=== PATIENT | female | born 1990 | race Caucasian/White ===

== ENCOUNTER 2018-07-01 14:12 | Outpatient (REF) | payer MEDICAID, SELFPAY ==
[2018-07-04 13:37] LABS: Chlamydia Result Negative; GC Result Negative
== END 2018-07-01 14:32 ==
LOC: NCHCN 14:12
PROVIDERS: PCP Nurse Practitioner Family; Visit Provider Nurse Practitioner Family
DX: R10.2 Pelvic and perineal pain (principal); Z11.3 Encounter for screening for infections with a predominantly sexual mode of transmission
CPT/HCPCS: 87491; 87591

== ENCOUNTER 2019-03-05 15:23 | Outpatient (REF) | payer BC, SELFPAY ==
[2019-03-05 22:00] LABS: Abs Immature Grans 0.01 k/cumm (0.0-0.09); Absolute Basophil Count 0.03 k/cumm (0.0-0.2); Absolute Eosinophil Count 0.07 k/cumm (0.0-0.7); Absolute Monocyte Count 0.38 k/cumm (0.11-0.7); Absolute Neutrophil Count 3.69 k/cumm (1.2-6.7); Basophils % 0.5; Eosinophils % 1.2; HCT 36.5 % (36.0-46.0); HGB 11.9 g/dL (12.0-15.5); Immature Grans % 0.2; Lymphocytes % 26.4; Mean Corp. HGB Concentration 32.6 g/dL (32.0-36.0); Mean Corpuscular Hemoglobin 27.5 pg (27.0-33.0); Mean Corpuscular Volume 84.5 fL (80-95); Mean Platelet Volume 11.3 fL (8.0-11.0); Monocytes % 6.7; Platelet Count 299 x1000/uL (130-400); RBC 4.32 m/cumm (4.00-5.20); RBC Distribution Width 14.3 % (11.7-14.6); White Blood Cell Count 5.68 k/cumm (4.4-10.8)
[2019-03-05 22:12] LABS: ALT 20 U/L (14-59); AST 14 U/L (15-37); Albumin 3.9 g/dL (3.4-5.0); Alkaline Phosphatase 54 U/L (46-116); BUN 9 mg/dL (7-18); Bilirubin, Total 0.2 mg/dL (0.2-1.0); CREATININE 0.83 mg/dL (0.55-1.02); Calcium 8.9 mg/dL (8.5-10.1); Chloride 104 mmol/L (98-107); Glucose 116 mg/dL (70-100); Potassium 3.8 mmol/L (3.5-5.1); Sodium 141 mmol/L (136-145); Total Protein 7.5 g/dL (6.4-8.2)
[2019-03-06 05:20] LABS: Vitamin D 25 Total 25.2 ng/ml (30-100)
== END 2019-03-05 15:43 ==
LOC: NCHCN 15:23
PROVIDERS: PCP Nurse Practitioner Family; Visit Provider Family Medicine
DX: R59.9 Enlarged lymph nodes, unspecified (principal); R53.83 Other fatigue
CPT/HCPCS: 80053; 82306; 85025

== ENCOUNTER 2020-04-29 16:13 | Outpatient (REF) | payer BC, SELFPAY ==
[2020-05-02 13:18] LABS: SARS-CoV-2 RNA Not Detected (NotDetected); SARS-CoV-2 RNA Source Nasopharynx
== END 2020-04-29 16:33 ==
LOC: NCHCN 16:13
PROVIDERS: PCP Nurse Practitioner Family; Visit Provider Internal Medicine
DX: J06.9 Acute upper respiratory infection, unspecified (principal)
CPT/HCPCS: U0003

== ENCOUNTER 2020-12-17 08:16 | Outpatient (REF) | payer BC, SELFPAY ==
--- NOTE | 2020-12-17 15:20 | PAPFT_PTH ---
PATIENT: Brittani Bradley LOC: [facility]#:[id number] AGE/SX: 30/F ROOM: RE12/17/[address]: Yocasta Cronin : 1990 BED: DIS: 12/17/2020 SPEC #: [id number] RECD: 12/18/20 11:40 STATUS: IGGY MOLINA #: [id number] MESHA: 12/17/20 15:[address]: Yocasta Cronin DEPT: [facility] Cytology RECD BY: Ivonne Lerma ENTERED: 12/18/20 11:41 SP TYPE: PAPFT OTHR DR: Elaine Hodgson Tissues: 1 - CX/ENDOCX FOR PAP SMEARS Procedures: PAP THIN PREP/UVM Screening Comments: [id number]
== END 2020-12-17 08:17 | disposition home or self-care (01) ==
LOC: NCHCN 08:16
PROVIDERS: PCP Nurse Practitioner Family; Visit Provider Internal Medicine
DX: Z00.00 Encounter for general adult medical examination without abnormal findings (principal); Z12.4 Encounter for screening for malignant neoplasm of cervix
CPT/HCPCS: 88142

== ENCOUNTER 2022-11-24 15:20 | Outpatient (REF) | payer BC, SELFPAY ==
[2022-11-27 10:16] LABS: Lyme Ab w Rflx to Lyme Confirm Negative (Negative)
[2022-11-28 16:50] LABS: Anaplasma phagocytophilum Negative (Negative); B. miyamotoi PCR Negative (Negative); Babesia divergens/MO-1 Negative (Negative); Babesia duncani Negative (Negative); Babesia microti Negative (Negative); Ehrlichia chaffeensis Negative (Negative); Ehrlichia ewingii/canis Negative (Negative); Ehrlichia muris eauclairensis Negative (Negative)
== END 2022-11-24 15:21 | disposition home or self-care (01) ==
LOC: NCHCN 15:20
PROVIDERS: PCP Nurse Practitioner Family; Visit Provider Registered Nurse
DX: M25.59 Pain in other specified joint (principal); W57.XXXA Bitten or stung by nonvenomous insect and other nonvenomous arthropods, initial encounter; T14.8XXA Other injury of unspecified body region, initial encounter
CPT/HCPCS: 87798; 86618

== ENCOUNTER 2023-10-12 15:33 | Outpatient (REF) | payer BC, SELFPAY ==
--- NOTE | 2023-10-12 14:45 | PAPFT_PTH ---
PATIENT: Brittani Bradley LOC: [facility]#:[id number] AGE/SX: 33/F ROOM: RE10/12/[address]: Yocasta Cronin : 1990 BED: DIS: 10/12/2023 SPEC #: [id number] RECD: 10/15/23 13:08 STATUS: IGGY MOLINA #: [id number] MESHA: 10/12/23 14:[address]: Yocasta Cronin DEPT: [facility] Cytology RECD BY: Hilda Casas ENTERED: 10/15/23 13:09 SP TYPE: PAPFT OTHR DR: Elaine Hodgson Tissues: 1 - CX/ENDOCX FOR PAP SMEARS Procedures: PAP THIN PREP/UVM Screening HPV DNA PROBE Comments: [id number] (CHLAMYDIA/GC)
[2023-10-16 16:27] LABS: Chlamydia Result Negative (Negative); GC Result Negative (Negative)
== END 2023-10-12 15:34 | disposition home or self-care (01) ==
LOC: NCHCN 15:33
PROVIDERS: PCP Nurse Practitioner Family; Visit Provider Internal Medicine
DX: Z00.00 Encounter for general adult medical examination without abnormal findings (principal); Z12.4 Encounter for screening for malignant neoplasm of cervix
CPT/HCPCS: 87491; 87591; 88142; 87624

== ENCOUNTER 2024-04-04 12:56 | Outpatient (REF) | payer BC, SELFPAY ==
--- OUTSIDE RECORDS SUMMARY | 2024-04-04 12:58 | XMS_ITS | Encounter Summary ---
Author Organization [facility] Address [address] [place] [address] Care Team Providers Care Hydraulic Hammer Operator Name Role Phone Yocasta Cronin Primary Care Provider [phone] Encounter Details Date Type Department Care Team (Late st Contact Info) Description 07/04/2022 Lab Requisition [facility] Pathology & Laboratory Medicine - [address] [address] [address] Ferraro MD [address] [place] [address] [address] [place] [id number] Neoplasm of uncertain behavior of skin Social History Tobacco Use Types Packs/Day Years Used Date Smoking Tobacco: Never Smokeless Tobacco: Never Alcohol Use Standard Drinks/Week Comments Never 0 (1 standard drink = 0.6 oz pur e alcohol) AUDIT-C Answer Date Recorded Frequency of Alcohol Consumption Never 07/19/2019 Average Number of Drinks Not on file 020 Frequency of Binge Drinking Not on file 01/2020 PHQ-2 Answer Date Recorded PHQ-2 Score 0 01/11/2020 Interpersonal Safety Answer Date Record ed Physically Hurt Never 01/11/2020 Verbally Threaten Not on file 01/11/2020 Sex and Gender Information Value Date Recorded Sex Assigned at Not on file Gender Identity Female 07/19/2019 21:26 EST Sexual Orientation Not on file documented as of this encounter Plan of Treatment Not on file documented as of this encounter Procedures Procedure Name Priority Date/Time Associated Diagnosis Comments SURGICAL PATHOLOGY Today 07/04/2022 15 :43 EST Neoplasm of uncertain behavior of skin documented in this encounter Results * SURGICAL PATHOLOGY (07/04/2022 15:43 EST) Amendment Comment The purpose of this amendment comment is to report the results of the outside consultation by Dr. Stephon Goodrich at [facility]. Dr. 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 He specifically notes: I noted the concerns in your cover letter. While there are some junctional nests lateral to the dermal component, one can draw a line under the peripheral most junctional nest across the base of the dermal component to the last junctional nest on the other side of this relatively symmetrical lesion. While some mitotic figures are present in dermal melanocytes, those cells are in the superficial dermis. In this context, I believe that this lesion should be classified as a Spitz's nevus and not as an atypical Spitz tumor. The neoplasms extends to within 1 mm of the peripheral edges of the specimen. I do not believe that additional excision is needed. The diagnosis is amended as below. These results were given to Dr. Ferraro. 07/27/2022 10:29 [facility] Note to Patient The following pathology results have been interpreted by your pathologist and may be available to you before your health provider has had the opportunity to review them. Please allow time for your provider to receive these results and explore management options, if applicable. 07/27/2022 10:29 [facility] Final Diagnosis A. SKIN OF PRETIBIAL REGION, RIGHT DISTAL, PUNCH BIOPSY: - COMPOUND SPITZ'S NEVUS. See comment. - Lesion does not extend to biopsy edges in the plane of sections examined. - Lesion measures approximately 0.4 mm to the biopsy edge. - Lesion measures approximately 4.0 mm to the biopsy base. 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 The proliferation has concerning histologic features including the cellularity, cytologic atypia, significant architectural disorder, lateral extension with scattered upward migration, and rare dermal mitoses. However, other features support the benignity including the relatively discrete nature, general maturation of the dermal component, diffuse p16 positivity and lack of a well-developed in-situ component. Given the atypical features, the case will be sent to Dr.Philip Goodrich at [facility] and an addendum report will be issued upon receipt of those findings. These results were given to [facility]. 07/27/2022 10:29 [facility] Attestation By the signature below, the attending physician certifies that they have 1) personally conducted a gross and/or microscopic examination of the described specimen(s), and/or personally interpreted the results of laboratory testing of the described specimen(s), and 2) personally rendered or confirmed the above diagnosis. 07/27/2022 10:29 [facility] Amendment electronically signed by Patsy Vo MD on 07/27/2022 at 1029 at 1320 Microscopic Description Sections consist of a punch biopsy of a papule. There is a relatively discrete, somewhat asymetric compound melanocytic proliferation. The junctional component is arranged as nests as well as individual cells. Nests show significant variation in size, shape, and spacing with some nests oriented perpendicular to the underlying dermis and some oriented parallel to the dermis. There is cleft inflammation around some of the nests. There is extensive epidermal consumption and bridging. Individual melanocytes are unevenly spaced and crowded along the dermal-epidermal junction with scattered cells extending slightly above the basal zone within the central aspect of the proliferation but also extending laterally. The individual melanocytes are spindled to epithelioid in morphology with fine chromatin, small prominent nucleoli, and amphophilic cytoplasm, some of which is pigmented. Kamino body formation is noted. Similar-appearing melanocytes are present within the dermis and generally mature with descent, although in scattered foci some larger nests are noted adjacent to smaller nests at the deep aspect of the dermal component. Rare dermal mitoses are noted. Scattered intraepidermal mitoses are present. There is moderately dense lymphomononuclear inflammation.SOX-10 ALK PHOS (SP267, Cell Checo) highlights scattered upper extension, including at the periphery, but does not show well-developed confluent growth and upper migration.P16 (E6H4TM, Peridot) shows strong diffuse positivity. Additional sections have been reviewed. NOTE: One or more of the reagents used in immunoperoxidase testing in this case may not have been cleared or approved by the U.S. Food and Drug Administration (FDA). The FDA has determined that such clearance or approval is not necessary. These tests are used for clinical purposes. They should not be regarded as investigational or for research. These reagents' performance characteristics have been determined by [facility] and/or by the referring laboratory. The positive and negative controls worked appropriately. If immunoperoxidase staining has been performed on alcohol fixed cytology specimens, which has not been fully validated, the assays should be interpreted with caution and correlated with clinical data. This laboratory is certified under the Clinical Laboratory Improvement Amendments of 1988 (CLIA-88) as qualified to perform high complexity clinical laboratory testing.? 07/27/2022 10:29 [facility] Clinical History Dome shaped red papule; DDx: Spitz nevus vs. dysplastic nevus; clinical diagnosis code: D48.5 07/27/2022 10:29 [facility] Gross Description A. Received in formalin labelled with proper patient identification (initials K, S) and right distal pretibial region is a mcclain-pink skin punch biopsy measuring 0.5 cm in diameter and excised to a depth of 0.3 cm. Submitted intact in A1. DREAD ACHARYA(ASCP) 07/04/2022 20:07 07/27/2022 10:29 [facility] Performing Lab [facility] 07/27/2022 10:29 [facility] Scanned Images 07/27/2022 10:29 [facility] Tissue TISSUE SPECIMEN FROM SKIN / Unknown 07/04/2022 15:43 EST 07/04/2022 18:[address] Ferraro MD PATHOLOGY ORDERABLES [facility] [address] [place] [address] documented in this encounter Visit Diagnoses Diagnosis Neoplasm of uncertain behavior of skin documented in this encounter Care Teams Hydraulic Hammer Operator Relationship Specialty Start Date End Date Yocasta Cronin [address] [place] [id number] PCP - General Internal Medicine - Primary Care 12/22/19 documented as of this encounter
--- OUTSIDE RECORDS SUMMARY | 2024-04-04 12:58 | XMS_ITS | Encounter Summary ---
Author Organization [facility] Address [address] [place] [address] Care Team Providers Care Card Punching Machine Operator Name Role Phone Yocasta Cronin Primary Care Provider [phone] Encounter Details Date Type Department Care Team (Late st Contact Info) Description 12/23/2019 Lab Requisition [facility] Pathology & Laboratory Medicine - [address] [address] Outr Resulting Lab, Provider Social History Tobacco Use Types Packs/Day Years Used Date Smoking Tobacco: Never Smokeless Tobacco: Never Alcohol Use Standard Drinks/Week Comments Never 0 (1 standard drink = 0.6 oz pur e alcohol) AUDIT-C Answer Date Recorded Frequency of Alcohol Consumption Never 07/19/2019 Average Number of Drinks Not on file 020 Frequency of Binge Drinking Not on file 01/2020 Sex and Gender Information Value Date Recorded Sex Assigned at Not on file Gender Identity Female 07/19/2019 21:26 EST Sexual Orientation Not on file documented as of this encounter Plan of Treatment Not on file documented as of this encounter Procedures Procedure Name Priority Date/Time Associated Diagnosis Comments DO NOT ORDER STANDALONE - BROAD COVID TEST Today 12/23/2019 10:20 EDT COVID-19 TESTING Routine 12/23/2019 10:2 0 EDT documented in this encounter Results * DO NOT ORDER STANDALONE - BROAD COVID TEST (12/23/2019 10:20 EDT) COVID-19 rt-PCR Result NEGATIVE Negative 12/25/2019 20:36 EDT [facility] Comment: 2019-novel Coronavirus (2019-nCoV) not detected by the qRT-PCR assay. Consider testing for other respiratory viruses or re-collecting for 2019-nCoV testing. Note: Optimum timing for peak viral levels during infections caused by 2019-nCoV have not been determined. Collection of multiple specimens from the same patient may be necessary to detect the virus. Limitations Positive results are indicative of active infection with SARS-CoV-2 but do not rule out bacterial infection or co-infection with other viruses. The agent detected may not be the definite cause of disease. In addition, detection of viral RNA may not indicate the presence of infectious virus or that SARS-CoV-2 is the causative agent for clinical symptoms. Negative results do not preclude SARS-CoV-2 infection and should not be used as the sole basis for patient management decisions. Negative results must be combined with clinical observations, patient history, and epidemiological information. False negative results may also occur if amplification inhibitors are present in the specimen or if inadequate numbers of organisms are present in the specimen. Optimum specimen types and timing for peak viral levels during infections caused by SARS-CoV-2 have not been fully determined. Collection of multiple specimens (types and time points) from the same patient may be necessary to detect the virus. The test was validated for use with upper respiratory specimens obtained via nasopharyngeal or oropharyngeal swabs in VTM, UTM, M4, M5, M6, saline, and MTM media. The performance of this test has not been established for other specimens. Specimens collected using other FDA recommended Specimen Collection Materials listed in the FDA COVID-19 Diagnostic Technologies communication (September 04, 2019) are processed with the caveat that they were not all validated for use with this test and the result must be interpreted in this context. Furthermore, a false negative results may occur if a specimen is improperly collected, transported or handled. If the virus mutates in the RT-PCR target region, SARS-CoV-2 may not be detected or may be detected less predictably. Inhibitors or other types of interference may produce a false negative result. An interference study evaluating the effect of common cold medications was not performed. This test is not FDA-cleared but its performance characteristics were established by our CLIA-certified, CAP-accredited, high complexity laboratory in accordance with CLIA regulations, [employer] [place] [employer] (CAP) guidelines (Aug 28, 2019), and FDA guidance (Aug 09, 2019). This test is only for use under the Food and Drug Administration's Emergency Use Authorization. Swab ENTIRE NASOPHARYNX / Unknown 12/23/2019 10:20 EDT 12/23/2019 22:00 EDT Provider Outr Resulting Lab MICROBIOLOGY - GENERAL ORDERABLES [facility] [place], [place] * COVID-19 TESTING (12/23/2019 10:20 EDT) COVID-19 rt-PCR Result NEGATIVE Negative 12/26/2019 0:02 EDT [facility] Comment: 2019-novel Coronavirus (2019-nCoV) not detected by the qRT-PCR assay. Consider testing for other respiratory viruses or re-collecting for 2019-nCoV testing. Note: Optimum timing for peak viral levels during infections caused by 2019-nCoV have not been determined. Collection of multiple specimens from the same patient may be necessary to detect the virus. Limitations Positive results are indicative of active infection with SARS-CoV-2 but do not rule out bacterial infection or co-infection with other viruses. The agent detected may not be the definite cause of disease. In addition, detection of viral RNA may not indicate the presence of infectious virus or that SARS-CoV-2 is the causative agent for clinical symptoms. Negative results do not preclude SARS-CoV-2 infection and should not be used as the sole basis for patient management decisions. Negative results must be combined with clinical observations, patient history, and epidemiological information. False negative results may also occur if amplification inhibitors are present in the specimen or if inadequate numbers of organisms are present in the specimen. Optimum specimen types and timing for peak viral levels during infections caused by SARS-CoV-2 have not been fully determined. Collection of multiple specimens (types and time points) from the same patient may be necessary to detect the virus. The test was validated for use with upper respiratory specimens obtained via nasopharyngeal or oropharyngeal swabs in VTM, UTM, M4, M5, M6, saline, and MTM media. The performance of this test has not been established for other specimens. Specimens collected using other FDA recommended Specimen Collection Materials listed in the FDA COVID-19 [employer] communication (September 04, 2019) are processed with the caveat that they were not all validated for use with this test and the result must be interpreted in this context. Furthermore, a false negative results may occur if a specimen is improperly collected, transported or handled. If the virus mutates in the RT-PCR target region, SARS-CoV-2 may not be detected or may be detected less predictably. Inhibitors or other types of interference may produce a false negative result. An interference study evaluating the effect of common cold medications was not performed. This test is not FDA-cleared but its performance characteristics were established by our CLIA-certified, CAP-accredited, high complexity laboratory in accordance with CLIA regulations, [employer] [place] [employer] (CAP) guidelines (Aug 28, 2019), and FDA guidance (Aug 09, 2019). This test is only for use under the Food and Drug Administration's Emergency Use Authorization. Performing Lab [facility] [employer] [facility] [place] 12/26/2019 0:02 EDT [facility] Swab 12/23/2019 10:2 0 EDT 12/23/2019 22:00 EDT Provider Outr Resulting Lab MICROBIOLOGY - GENERAL ORDERABLES [facility] [address] [place] [address] [facility] [place], [place] documented in this encounter Visit Diagnoses Not on filedocumented in this encounter Additional Health Concerns Infection Onset Date Last Indicated Resolved Time R/O COVID-19 12/22/2019 12/23/2019 12/28/2019 22:1 7 EDT documented as of this encounter Care Teams Card Punching Machine Operator Relationship Specialty Start Date End Date Yocasta Cronin [address] [place] [address] PCP - General Internal Medicine - Primary Care 12/22/19 documented as of this encounter
--- OUTSIDE RECORDS SUMMARY | 2024-04-04 12:58 | XMS_ITS | Clinical Summary ---
Author Organization [facility] Address [address] [place] [address] Care Team Providers Care Instrument Lens Grinder Name Role Phone Yocasta Cronin Primary Care Provider [phone] Allergies Active Allergy Reactions Criticality Noted Date Comments Penicillins Rash 04/16/2013 Unable To Assess 04/29/2014 Pollens Medications No known medications Active Problems No known active problems Encounters Date Type Department Care Team Description 04/01/2024 Telephone [facility] Family Medicine [address] [address] [facility], Appointment Related from Last 3 Months Medical History Medical History Date Comments Asthma Back pain Leg pain Joint pain Knee instability Anemia Anxiety Social History Tobacco Use Types Packs/Day Years [...] 21:26 EST Sexual Orientation Not on file Obstetrics History Last Filed Vital Signs Vital Sign Reading Time Taken Comments Blood Pressure 126/83 07/19/2019 2118 EST Pulse 71 12/23/2019 1135 EDT Temperature 36.9 ??C (98.4 ??F) 07/19/2019 2118 EST Respiratory Rate 16 07/19/20192117 EST Oxygen Saturation 100% 12/23/2019 1135 EDT Inhaled Oxygen Concentration - - Weight 63.5 kg (140 lb) 07/19/20192117 EST Height 175.3 cm (5' 9) 09/03/2015 1331 EDT Body Mass Index 20.67 09/03/2015 1331 EDT Plan of Treatment Health Maintenance Due Date Last Done Comments Hepatitis C Screen 1990 Hepatitis B Vaccine (1 of 3 - 19+ 3-dose series) 01/17 COVID-19 Vaccine (2023- season) 2024 Care Teams Instrument Lens Grinder Relationship Specialty Start Date End Date Yocasta Cronin [address] [place] [address] PCP - General Internal Medicine - Primary Care 12/22/19
--- OUTSIDE RECORDS SUMMARY | 2024-04-04 12:58 | XMS_ITS | Encounter Summary ---
Author Organization [facility] Address [address] [place] [address] Care Team Providers Care Cloth Worker Name Role Phone Yocasta Cronin Primary Care Provider [phone] Encounter Details Date Type Department Care Team (Late st Contact Info) Description 10/17/2023 Lab Requisition [facility] Pathology & Laboratory Medicine - [address] [address] Yocasta Cronin [address] [place] [address] Encounter for screening for malignant neoplasm of cervix; Encounter for general adult medical examination without abnormal findings Social History Tobacco Use Types Packs/Day Years [...] Procedure Name Priority Date/Time Associated Diagnosis Comments PAP TEST Today 10/12/2023 14:45 EDT Encounter for screening for malignant neoplasm of cervix Encounter for general adult medical examination without abnormal findings HPV DNA DETECTION WITH GENOTYPING, PCR Today 10/12/2023 14:45 EDT Encounter for screening for malignant neoplasm of cervix Encounter for general adult medical examination without abnormal findings documented in this encounter Results * HUMAN PAPILLOMAVIRUS (HPV) DETECTION-HIGH RISK TYPES (10/12/2023 14:45 EDT) HPV other High Risk types, PCR Negative Negative 10/23/2023 18:25 EDT [facility] Comment:No E6 or E7 mRNA is detected from HPV types 16,18,31,33,35,39,45,51,52,56,58,59,66, and 68 by plastics seasoner operator mediated amplification. Pap Test CERVIX UTERI STRUCTURE / Unknown 10/12/2023 14:45 EDT 10/23/2023 9:34 EDT Yocasta Cronin MICROBIOLOGY - [facility] AL ORDERABLES [facility] [address] [place] [address] * PAP TEST (10/12/2023 14:45 EDT) Specimens A. Cervix and/or Endocervix , ThinPrep Imaging System with Manual Evaluation 10/23/2023 18:25 T [facility] Specimen Adequacy Satisfactory for Evaluation - transformation zone component present 10/23/2023 18:25 EDT [facility] General Categorization Negative for intraepithelial lesion or malignancy 10/23/2023 18:25 [facility] Attestation . 10/23/2023 18:25 [facility] at 1825 Clinical History SEE BELOW 10/23/19 18:25 T [facility] HPV The result for the Human Papillomavirus (HPV) Detection-High Risk Types is Negative. No E6 or E7 mRNA is detected from HPV types 16,18,31,33,35,39 ,45,51,52,56,58,5 9,66, and 68 by plastics seasoner operator mediated amplification.Jasmin ting was performed on specimen [id number] and was resulted on 10/23/2023 1825 EDT by MARY, LAB INSTRUMENT RESULTS IN 10/23/2023 18:25 EDT [facility] Performing Lab [facility] 10/23/2023 18:25 EDT [facility] Scanned Images 10/23/2023 18:25 EDT [facility] Pap Test CERVIX UTERI STRUCTURE / Unknown 10/12/2023 14:45 EDT 10/17/2023 10:13 EDT Yocasta Cronin PATHOLOGY ORDERABLES Performing Organization Address City/State/[facility] Co de Phone Number [facility] [address] [place], [place] [address] documented in this encounter Visit Diagnoses Diagnosis Encounter for screening for malignant neoplasm of cervix Screening for malignant neoplasm of the cervix Encounter for general adult medical examination without abnormal findings Unspecified general medical examination documented in this encounter Care Teams Cloth Worker Relationship Specialty Start Date End Date Yocasta Cronin [address] [place] [address] PCP - General Internal Medicine - Primary Care 12/22/19 documented as of this encounter
--- OUTSIDE RECORDS SUMMARY | 2024-04-04 12:58 | XMS_ITS | Encounter Summary ---
Author Organization [facility] Address [address] [place] [address] Care Team Providers Care Provider Relations Consultant Name Role Phone Yocasta Cronin Primary Care Provider [phone] Reason for Visit * Reason Onset Date Comments Other 12/22/2019 covid testing Encounter Details Date Type Department Care Team (Late st Contact Info) Description 12/22/2019 Telephone [facility] - Mobile Testing Department [address] [place] [address] Nataliia Marley MD [address] [place] [phone] Other (covid testing) Social History Tobacco Use Types Packs/Day Years [...] on file documented as of this encounter Miscellaneous Notes * Telephone Encounter - Valentin Gomez - 12/22/2019 0923 EDT Spoke with patient. She is a [employer] [facility] [facility] employee. Her PCP put the order in for Zachary. Was inquiring as to how soon we could get in, which is tomorrow. Offered [facility], patient declined. Patient will go to [facility] tomorrow. Sunday12/23/2019 documented in this encounter Plan of Treatment Not on file documented as of this encounter Visit Diagnoses Not on filedocumented in this encounter Care Teams Provider Relations Consultant Relationship Specialty Start Date End Date Yocasta Cronin [address] [place] [address] PCP - General Internal Medicine - Primary Care 12/22/19 documented as of this encounter
--- OUTSIDE RECORDS SUMMARY | 2024-04-04 12:58 | XMS_ITS | Encounter Summary ---
Author Organization [facility] Address [address] [place] [address] Care Team Providers Care Access Rn Name Role Phone Yocasta Cronin Primary Care Provider [phone] Reason for Visit * Reason Onset Date Comments Erroneous Encounter 11/20/2022 Encounter Details Date Type Department Care Team (Late st Contact Info) Description 11/20/2022 Telephone [facility] Integrative Family Medicine [address] [address] Yocasta Cronin [address] [place], [place] [address] Erroneous Encounter Social History Tobacco Use Types Packs/Day Years [...] encounter Miscellaneous Notes * Telephone Encounter - Jeana Spencer - 11/20/2022 1036 EDT Confirmed demographics (address + phone number -- needs to be one where we can leave a vm!): YES Any health concerns/goals/needs: NO Has any specialists: Dermatology--[facility] Informed of wait list: YES Did patient request a specific provider: Reason for request: 1. Where was the previous pcp or clinic 2. Why did the patient leave the previous pcp or clinic 3. If no specific clinic/pcp has patient been utilizing walk in clinics documented in this encounter Plan of Treatment Not on file documented as of this encounter Visit Diagnoses Not on filedocumented in this encounter Care Teams Access Rn Relationship Specialty Start Date End Date Yocasta Cronin [address] [place] [address] PCP - General Internal Medicine - Primary Care 12/22/19 documented as of this encounter
--- OUTSIDE RECORDS SUMMARY | 2024-04-04 12:58 | XMS_ITS | Encounter Summary ---
Author Organization [facility] Address [address] [place] [address] Care Team Providers Care Cardiopulmonary Specialist Name Role Phone Yocasta Cronin Primary Care Provider [phone] Encounter Details Date Type Department Care Team (Late st Contact Info) Description 11/25/2022 Lab Requisition [facility] Pathology & Laboratory Medicine - [address] [address] Outr Resulting Lab, Provider Social History Tobacco [...] Procedure Name Priority Date/Time Associated Diagnosis Comments LYME AB Routine 11/24/2022 15:30 EDT documented in this encounter Results * LYME AB (11/24/2022 15:30 EDT) Lyme Ab Negative Negative 11/27/2022 10:11 EDT [facility] Blood VENOUS BLOOD / Unknown 11/24/2022 15:30 EDT 11/25/2022 21:36 EDT Provider Outr Resulting Lab IMMUNOLOGY A ND SEROLOGY ORDERABLES Performing Organization Address City/State/[facility] Co de Phone Number [facility] [address] [place] [address] documented in this encounter Visit Diagnoses Not on filedocumented in this encounter Care Teams Cardiopulmonary Specialist Relationship Specialty Start Date End Date Yocasta Cronin [address] [place] [address] PCP - General Internal Medicine - Primary Care 12/22/19 documented as of this encounter
--- OUTSIDE RECORDS SUMMARY | 2024-04-04 12:58 | XMS_ITS | Encounter Summary ---
Author Organization [facility] Address [address] [place] [address] Care Team Providers Care Show Horse Driver Name Role Phone RichardYocasta salas Primary Care Provider [phone] Reason for Visit * Reason Onset Date Comments Other 12/27/2019 Covid-19 Call Ce nter Encounter Details Date Type Department Care Team (Late st Contact Info) Description 12/27/[address] [address] Tori John RN Other (Covid-19 Call Center) Social History Tobacco Use Types Packs/Day Years [...] encounter Miscellaneous Notes * Telephone Encounter - Tori John RN - 12/27/2019 1021 EDT Patient called looking for their recent Covid-19 result. Patient provided with negative Covid-19 result. documented in this encounter Plan of Treatment Not on file documented as of this encounter Visit Diagnoses Not on filedocumented in this encounter Additional Health Concerns Infection Onset Date Last Indicated Resolved Time R/O COVID-19 12/22/2019 12/23/2019 12/28/2019 22:1 7 EDT documented as of this encounter Care Teams Show Horse Driver Relationship Specialty Start Date End Date Yocasta Cronin [address] [place] [address] PCP - General Internal Medicine - Primary Care 12/22/19 documented as of this encounter
--- OUTSIDE RECORDS SUMMARY | 2024-04-04 12:58 | XMS_ITS | Referral Summary ---
Author Organization [facility] Address [address] [place] [address] Care Team Providers Care Technical Product Manager Name Role Phone Roseanne Yocasta Becerra Primary Care Provider [phone] Encounters Date Type Department Care Team Description 04/01/2024 Telephone [facility] - [address] [id number] [facility], Appointment Related from Last 3 Months Allergies Active Allergy Reactions Criticality Noted Date Comments Penicillins Rash 04/16/2013 Unable To Assess 04/29/2014 Pollens Medications No known medications Active Problems No known active problems Social History Tobacco Use Types Packs/Day Years [...] 21:26 EST Sexual Orientation Not on file Last Filed Vital Signs Vital Sign Reading Time Taken Comments Blood Pressure 126/83 07/19/2019 2118 EST Pulse 71 12/23/2019 1135 EDT Temperature 36.9 ??C (98.4 ??F) 07/19/2019 2118 EST Respiratory Rate 16 07/19/2019 2118 EST Oxygen Saturation 100% 12/23/2019 1135 EDT Inhaled Oxygen Concentration - - Weight 63.5 kg (140 lb) 07/19/20192117 EST Height 175.3 cm (5' 9) 09/03/2015 1331 EDT Body Mass Index 20.67 09/03/2015 1331 EDT Plan of Treatment Not on file Care Teams Technical Product Manager Relationship Specialty Start Date End Date Yocasta Cronin [address] [place] [address] PCP - General Internal Medicine - Primary Care 12/22/19
--- OUTSIDE RECORDS SUMMARY | 2024-04-04 12:58 | XMS_ITS | Encounter Summary ---
Author Organization [facility] Address [address] [place] [address] Care Team Providers Care Surveillance Monitor Name Role Phone Yocasta Cronin Primary Care Provider [phone] Encounter Details Date Type Department Care Team (Late st Contact Info) Description 10/15/2023 Lab Requisition [facility] Pathology & Laboratory Medicine - [address] [address] Outr Resulting Lab, Provider Social History Tobacco [...] Procedure Name Priority Date/Time Associated Diagnosis Comments CHLAMYDIA/N. GONORRHOEAE AMPLIFIED NUCLEIC ACID, THINPREP Today 10/12/2023 14:45 EDT documented in this encounter Results * CHLAMYDIA/N. GONORRHOEAE AMPLIFIED RNA, THINPREP (10/12/2023 14:45 EDT) Neisseria gonorrhoeae Result Negative Negative 10/16/2023 16:24 EDT [facility] Chlamydia trachomatis Result Negative Negative 10/16/2023 16:24 EDT [facility] Pap Test CERVIX UTERI STRUCTURE / Unknown 10/12/2023 14:45 EDT 10/16/2023 8:44 EDT Provider Outr Resulting Lab MICROBIOLOGY - GENERAL ORDERABLES [facility] [address] [place], [place] [address] documented in this encounter Visit Diagnoses Not on filedocumented in this encounter Care Teams Surveillance Monitor Relationship Specialty Start Date End Date Yocasta Cronin [address] [facility] [place] [address] PCP - General Internal Medicine - Primary Care 12/22/19 documented as of this encounter
--- OUTSIDE RECORDS SUMMARY | 2024-04-04 12:58 | XMS_ITS | Encounter Summary ---
Author Organization [facility] Address [address] [place] [address] Care Team Providers Care Aircraft Instrument Tester Name Role Phone Yocasta Cronin Primary Care Provider [phone] Encounter Details Date Type Department Care Team (Late st Contact Info) Description 05/18/2021 Lab Requisition [facility] Lab - Main [place] [address] [place] [id number] Health, [facility] Employee Contact with and (suspected) exposure to covid-19 Social History Tobacco Use Types Packs/Day Years [...] Procedure Name Priority Date/Time Associated Diagnosis Comments ZZCOVID-19 TESTING ([facility]) Today 05/18/2021 9:32 EST Contact with and (suspected) exposure to covid-19 ZZCOVID-19 [facility] (TESTING ONLY) Today 05/18/2021 9:32 EST Contact with and (suspected) exposure to covid-19 documented in this encounter Results * COVID-19 PM[facility] (TESTING ONLY) (05/18/2021 9:32 EST) COVID-19 rt-PCR Result Negative Negative 05/18/2021 10:31 EST [facility] Comment: This test has not been FDA cleared or approved. This test has been authorized by FDA under an EUA for use by authorized laboratories. This test has been authorized only for detection of nucleic acid from 2019-nCoV, not for any other viruses or pathogens. This test is only authorized for the duration of the declaration that circumstances exist justifying the authorization of emergency use of in vitro diagnostic tests for detection and/or diagnosis of 2019-nCoV under section 564(b)(1) of Act, 21 U.S.C ?? 360bbb-3(b) (1), unless the authorization is terminated or revoked sooner. Performed on the [employer] GeneXpert Instrument The 2019 novel coronavirus (SARS-CoV-2) target nucleic acids are not detected. Swab 05/18/2021 9:32 EST 05/18/2021 9:32 EST [facility] MICROBIOLOGY - GENERAL ORDERABLES Performing Organization Address City/[facility]/ZIP Co de Phone Number [facility] [address] [place] [address] * COVID-19 TESTING ([facility], [facility], ) (05/18/2021 9:32 EST) Performing Lab [facility] 05/18/2021 9:34 EST [facility] Swab 05/18/2021 9:32 EST 05/18/2021 9:32 EST [facility] Employee [facility] MICROBIOLOGY - GENERAL ORDERABLES Performing Organization Address City/[facility]/ZIP Co de Phone Number [facility] [address] [place] [address] documented in this encounter Visit Diagnoses Diagnosis Contact with and (suspected) exposure to covid-19 documented in this encounter Care Teams Aircraft Instrument Tester Relationship Specialty Start Date End Date Yocasta Cronin [address] [place] [address] PCP - General Internal Medicine - Primary Care 12/22/19 documented as of this encounter
--- OUTSIDE RECORDS SUMMARY | 2024-04-04 12:58 | XMS_ITS | Encounter Summary ---
Author Organization [facility] Address [address] [place] [address] Care Team Providers Care Culinary Artist Name Role Phone Yocasta Cronin Primary Care Provider Reason for Visit * Reason Onset Date Comments Appointment Related 04/01/2024 Encounter Details Date Type Department Care Team ([facility] st Contact Info) Description 04/01/2024 Telephone [facility] Integrative Family Medicine [address] [address] [facility] [address] [place], [place] [address] Appointment Related Social History Tobacco Use Types Packs/Day Years [...] encounter Miscellaneous Notes * Telephone Encounter - Sugey Williamson - 04/02/2024 1052 EDT Pt does not want to remain on wait list. She has a doctor in [place] and will be moving around. * Telephone Encounter - Diamond Armando - 04/01/2024 1149 EDT Outreach to relay CM update. Does patient want to be on wait list? documented in this encounter Plan of Treatment Not on file documented as of this encounter Visit Diagnoses Not on filedocumented in this encounter Care Teams Culinary Artist Relationship Specialty Start Date End Date Yocasta Cronin [address] [place] [address] PCP - General Internal Medicine - Primary Care 12/22/19 documented as of this encounter
--- OUTSIDE RECORDS SUMMARY | 2024-04-04 12:58 | XMS_ITS | Encounter Summary ---
Author Organization [facility] Address [address] [place] [address] Care Team Providers Care Pie Filler Name Role Phone Yocsata Cronin Primary Care Provider [phone] Reason for Visit * Reason Comments COVID-19 R/O COVID - SOME SYM PTOMS Encounter Details Date Type Department Care Team (Late st Contact Info) Description 12/23/2019 10:30 EDT Nurse Only [facility] - Mobile Testing Department [address] [place] [address] Nurse, [facility] Mobile Testing Screening for viral disease (Primary Dx) Social History Tobacco Use Types Packs/Day Years [...] on file documented as of this encounter Last Filed Vital Signs Vital Sign Reading Time Taken Comments Blood Pressure - - Pulse 71 12/23/2019 1135 EDT Temperature - - Respiratory Rate - - Oxygen Saturation 100% 12/23/2019 1135 EDT Inhaled Oxygen Concentration - - Weight - - Height - - Body Mass Index - - documented in this encounter Progress Notes * Kaia Sotelo - 12/23/2019 1030 EDT Reason for visit - Covid 19 Screening HPI and Provider order- It is confirmed that patient qualifies for testing, C-19 testing has been recommended and ordered by provider Education - Patient offered Covid counseling and was provided with Covid home instructions. Vital Signs obtained and put in chart. Brief Assessment- Patient in no acute distress and tolerated testing well. Nurse performing swab/service today - MICHELLE NAIDU RN Provider on site today - KEVIN MULLINS Diagnosis / code - Screening for other viral disease, Z11.59 Nurse Encounter charge [id number] documented in this encounter Plan of Treatment Not on file documented as of this encounter Visit Diagnoses Diagnosis Screening for viral disease- Primary Special screening examination for unspecified viral disease documented in this encounter Additional Health Concerns Infection Onset Date Last Indicated Resolved Time R/O COVID-19 12/22/2019 12/23/2019 12/28/2019 22:1 7 EDT documented as of this encounter Care Teams Pie Filler Relationship Specialty Start Date End Date Yocasta Cronin [address] [place] [address] PCP - General Internal Medicine - Primary Care 12/22/19 documented as of this encounter
--- OUTSIDE RECORDS SUMMARY | 2024-04-04 12:58 | XMS_ITS | Encounter Summary ---
Author Organization [facility] Address [address] [place] [address] Care Team Providers Care Grinding Wheel Dresser Name Role Phone Yocasta Cronin Primary Care Provider [phone] Reason for Visit * Reason Onset Date Comments Establish Care 07/02/2023 Encounter Details Date Type Department Care Team (Late st Contact Info) Description 07/02/2023 Telephone [facility] Integrative Family Medicine [address] [address] Yocasta Cronin [address] [place], [place] [address] Establish Care Social History Tobacco Use Types Packs/Day Years [...] encounter Miscellaneous Notes * Telephone Encounter - Diamond Armando - 07/03/2023 0813 EST Added to wait list * Telephone Encounter - Jeana Spencer - 07/02/2023 1312 EST Pt wondering if she could get added to the panel of Nataly Hodgson NP as she heard that [facility] was coming here in the spring. Confirmed demographics (address + phone number -- needs to be one where we can leave a vm!): YES Any health concerns/goals/needs: NO--due for PEX Has any specialists: Dermatology at [facility] Informed of wait list: YES Did patient request a specific provider: Nataly Hodgson Reason for request: 1. Where was the previous pcp or clinic--[facility] 2. Why did the patient leave the previous pcp or clinic--Pt works in [place] and it would be easier for pt to come to us 3. If no specific clinic/pcp has patient been utilizing walk in clinics--N/A documented in this encounter Plan of Treatment Not on file documented as of this encounter Visit Diagnoses Not on filedocumented in this encounter Care Teams Grinding Wheel Dresser Relationship Specialty Start Date End Date Yocasta Cronin [address] [place] [address] PCP - General Internal Medicine - Primary Care 12/22/19 documented as of this encounter
--- OUTSIDE RECORDS SUMMARY | 2024-04-04 12:58 | XMS_ITS | Encounter Summary ---
Author Organization [facility] Address [address] [place] [address] Care Team Providers Care University Dean Name Role Phone Yocasta Cronin Primary Care Provider [phone] Encounter Details Date Type Department Care Team (Late st Contact Info) Description 09/21/2021 Lab Requisition [facility] Lab - Main [place] [address] [place] [id number] Health, [facility] Employee Encounter for other general examination Social History Tobacco Use Types Packs/Day Years [...] Name Priority Date/Time Associated Diagnosis Comments ZZCOVID-19 [facility] (TESTING ONLY) Today 09/21/2021 9:00 EDT Encounter for other general examination COVID-19 TESTING Today 09/21/2021 9:00 EDT Encounter for other general examination documented in this encounter Results * COVID-19 CV (TESTING ONLY) (09/21/2021 9:00 EDT) COVID-19 rt-PCR Result Negative Negative 09/22/2021 9:24 EDT [facility] Comment: This test has not been [...] the authorization is terminated or revoked sooner. The 2019 novel coronavirus (SARS-CoV-2) target nucleic acids are not detected. Performed on the [employer] Liaison Instrument. Swab 09/21/2021 9:00 EDT 09/21/2021 14:22 EDT [facility] MICROBIOLOGY - GENERAL ORDERABLES Performing Organization Address City/[facility]/ZIP Co de Phone Number [facility] [address] [place] [address] * COVID-19 TESTING (09/21/2021 9:00 EDT) COVID-19 rt-PCR Result Negative Negative 09/22/2021 9:24 EDT [facility] Performing Lab [employer] Liaison [facility] Lab 09/22/2021 9:24 EDT [facility] Swab 09/21/2021 9:00 EDT 09/21/2021 14:22 EDT [facility] Employee [facility] MICROBIOLOGY - GENERAL ORDERABLES [facility] [address] [place] [address] documented in this encounter Visit Diagnoses Diagnosis Encounter for other general examination documented in this encounter Care Teams University Dean Relationship Specialty Start Date End Date Yocasta Cronin [address] [place] [address] PCP - General Internal Medicine - Primary Care 12/22/19 documented as of this encounter
--- OUTSIDE RECORDS SUMMARY | 2024-04-04 12:58 | XMS_ITS | Encounter Summary ---
Author Organization [facility] Address [address] [place] [address] Care Team Providers Care Child Psychometrist Name Role Phone Yocasta Cronin Primary Care Provider [phone] Encounter Details Date Type Department Care Team (Late st Contact Info) Description 12/20/2020 Lab Requisition [facility] Pathology & Laboratory Medicine - [address] [address] Yocasta Cronin [address] [place] [address] Encounter for general adult medical examination without abnormal findings; Encounter for screening for malignant neoplasm of cervix Social History Tobacco Use Types Packs/Day Years [...] Date/Time Associated Diagnosis Comments PAP TEST Today 12/17/2020 15:20 EDT Encounter for general adult medical examination without abnormal findings Encounter for screening for malignant neoplasm of cervix documented in this encounter Results * PAP TEST (12/17/2020 15:20 EDT) Specimens A. Cervix and/or Endocervix , ThinPrep Imaging System with Manual Evaluation 12/27/2020 14:16 EDT [facility] Specimen Adequacy Satisfactory for Evaluation - transformation zone component present 12/27/2020 14:16 EDT [facility] General Categorization Negative for intraepithelial lesion or malignancy 12/27/2020 14:16 EDT [facility] Attestation . 12/27/2020 14:16 T [facility] at 1416 Clinical History See below 12/28/19 14:16 EDT [facility] Performing Lab [facility] 12/27/2020 14:16 EDT [facility] Scanned Images 12/27/2020 14:16 EDT [facility] Papanicolaou smear specimen (specimen) CERVIX UTERI STRUCTURE / Unknown 12/17/2020 15:20 EDT 12/20/2020 15:08 EDT Yocasta Cronin PATHOLOGY ORDERABLES Performing Organization Address City/State/[facility] Co de Phone Number [facility] [address] [place] [address] documented in this encounter Visit Diagnoses Diagnosis Encounter for general adult medical examination without abnormal findings Unspecified general medical examination Encounter for screening for malignant neoplasm of cervix Screening for malignant neoplasm of the cervix documented in this encounter Care Teams Child Psychometrist Relationship Specialty Start Date End Date Yocasta Cronin [address] [place] [address] PCP - General Internal Medicine - Primary Care 12/22/19 documented as of this encounter
--- OUTSIDE RECORDS SUMMARY | 2024-04-04 12:58 | XMS_ITS | Encounter Summary ---
Author Organization [facility] Address [address] [place] [address] Care Team Providers Care Children'S Author Name Role Phone RoseanneYocasta Primary Care Provider [phone] Reason for Referral * Laboratory Services (Routine) - New Request Specialty Diagnoses / Procedures Referred By Chandan t Referred To Contact Diagnoses Sore throat Procedures COVID-19 TESTING Oriana Garvey, FAINA [address] [place] [phone] Referral ID Status Reason Start Date Expiration Date V isits Requested Visits Authorized [id number] New Request 12/22/2019 1 1 Reason for Visit * Reason Onset Date Comments Other 12/21/2019 Covid-19 Call Ce nter Encounter Details Date Type Department Care Team (Late st Contact Info) Description 12/22/[address] [address] Tori John, RN Other (Covid-19 Call Center) Social History [...] encounter Miscellaneous Notes * Telephone Encounter - Lito Francisco - 12/22/2019 1059 EDT 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 Routed for testing ordering. 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 Spoke to patient and verbally gave instructions for Testing Facility. Patient is instructed to be there at 10:30am sharp, 12/23/19 * Telephone Encounter - Valentin Gomez - 12/22/2019 1015 EDT Left voicemail message * Telephone Encounter - Oriana Garvey - 12/22/2019 1008 EDT This patient does meet criteria for testing for C19 based on current algorithm. Per RN note the patient is stable to await testing and strict emergency department precautions have been reviewed. 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 * Telephone Encounter - Tori John RN - 12/22/2019 0932 EDT This patient is calling the [facility] COVID-19 information center with concern for COVID-19. The patient has had 2 days of body aches and one day of sore throat. Denies any other symptoms. COVID-19 testing is indicated according to current [facility] algorithm. The patient has not been previously tested for Covid-19. 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 Patient is not immunocompromised. The patient is not a resident of a mcc or assisted living facility. This patient is currently stable, and was advised to go to the ER or call 911 with any worsening symptoms. COVID-19 Home Instructions COVID-19 is a viral illness that cannot be treated with antibiotics or antivirals, and there is no vaccine. Symptoms are fever, cough, and shortness of breath that can last 2-4 weeks. Some people will have headache, sore throat, body aches, chills, diarrhea and loss of taste or smell. It is spread through person to person contact or by touching objects and surfaces that are contaminated with the virus and then touching your mouth, nose, or eyes. If you are experiencing any symptoms, it is important that you ???self-isolate?? , meaning stay home and do the following: ??? Stay home, get rest, and drink plenty of healthy fluids (like water, Gatorade). ? Take Tylenol (acetaminophen) pain relievers, fever reducers, decongestants or cough medicine tomanage symptoms. Avoid NSAID's (Advil, Motrin, and Aleve). ??? Call your PCP first if you have chronic health conditions before you take these medications. ? Do not go to work/school/public areas. ? Avoid public transportation/ride-sharing/taxis. ? Separate yourself from other people and animals in your home. ? Use a separate bathroom if available. ? Cover your coughs and sneezes with a tissue. ??? Wear a facemask when around other people. ? Avoid sharing personal household items (cups, dishes, utensils, towels, bedding) ? Clean your hands often either with soap and water for 20 seconds or an alcohol-based hand director of operations home health that contains at least 60% alcohol. ? Clean high-touch surfaces every day (counter, tables, doorknobs, toilet, computer, etc.) We ask that you check your temperature and monitor your symptoms daily. Seek prompt medical care ifyour illness is worsening. Complications of the illness include pneumonia, organ failure, and in some cases . Severe symptoms include: ??? Shortness of breath or difficulty breathing (feeling like you can't get enough air or are gasping, unable to speak without stopping for air, feelings of distress). ? Weakness, dizziness, or chest pain. If you are experiencing any of these symptoms, please call your primary care office BEFORE seeking care, or call 911 if it is a medical emergency. Inform your PCP office or ticket dispatcher that you are on self-isolation for possible COVID-19 and have worsening symptoms. If you are able, wear a mask before entering any facility. These steps will help reduce possible transmission to other people. What do I do while waiting for my test results? After you have had your test, you should ???self-isolate?? until you receive your test results. This means you should stay home, separate yourself from others and pets. You should not leave your home for any reason unless it is a medical emergency. This includes things like going to other medical a ppointments, the grocery story, to visit family and friends. When do I no longer need to stay home and ???self-isolate?? ? You can stop isolation if your test results were negative and you do not have any symptoms, or if you had symptoms but now meet all three of the following conditions: 1. You have had no fever for at least the last 72 hours (that means three full days of no fever without the use of fever-reducing medication) AND 2. Other symptoms have improved (for example, when your cough or shortness of breath gets better) AND 3. At least 10 days have passed since your symptoms first appeared. How will I get my results? Test results are usually ready in 3 days. All results are called by an RN. If you have not receivedthe results after 3 days, contact the provider who ordered the testing or the COVID Call Center. documented in this encounter Plan of Treatment Not on file documented as of this encounter Procedures Procedure Name Priority Date/Time Associated Diagnosis Comments COVID-19 TESTING Routine 12/23/2019 10:2 0 EDT Sore throat documented in this encounter Results * COVID-19 TESTING (12/23/2019 10:20 EDT) Performing Lab [facility] 12/26/2019 7:46 EDT [facility] Comment: Is Patient Admitted or Awaiting Admission?:NO Test performed or referred by The [address] [address] COVID-19 rt-PCR Result Not Detected Negative 12/26/2019 7:46 EDT [facility] Comment: 2019-novel Coronavirus (2019-nCoV) not detected by [...] in accordance with CLIA regulations, College of [place] (CAP) guidelines (Aug 28, 2019), and FDA guidance (Aug 09, 2019). This test is only for use under the Food and Drug Administration's Emergency Use Authorization. Swab ENTIRE NASOPHARYNX / Unknown 12/23/2019 10:20 EDT 12/23/2019 11:54 EDT Oriana Garvey NP MICROBIOLOGY - GENER AL ORDERABLES [facility] [address] [place] [address] documented in this encounter Visit Diagnoses Diagnosis Sore throat- Primary Acute pharyngitis documented in this encounter Additional Health Concerns Infection Onset Date Last Indicated Resolved Time R/O COVID-19 12/22/2019 12/23/2019 12/28/2019 22:1 7 EDT documented as of this encounter Care Teams Children'S Author Relationship Specialty Start Date End Date Yocasta Cronin [address] [place] [address] PCP - General Internal Medicine - Primary Care 12/22/19 documented as of this encounter
--- OUTSIDE RECORDS SUMMARY | 2024-04-04 12:58 | XMS_ITS | Encounter Summary ---
Author Organization [facility] Address [address] [place] [address] Care Team Providers Care Sexual Assault Counsellor Name Role Phone Yocasta Cronin Primary Care Provider [phone] Reason for Visit * Reason Onset Date Comments Establish Care 10/29/2023 Encounter Details Date Type Department Care Team ([facility] st Contact Info) Description 10/29/2023 Telephone [facility] Integrative Family Medicine [address] [address] [facility] [address] [place], [place] [address] Establish Care Social History Tobacco Use Types [...] * Telephone Encounter - Sugey Williamson - 10/31/2023 1344 EDT Scheduled with CM in 2024 * Telephone Encounter - Diamond Armando - 10/29/2023 1147 EDT Patient contacted office in Jun 2023 to transfer primary care Outreach to patient to offer appt with CM in 2024. Please mail packet documented in this encounter Plan of Treatment Not on file documented as of this encounter Visit Diagnoses Not on filedocumented in this encounter Care Teams Sexual Assault Counsellor Relationship Specialty Start Date End Date Yocasta Cronin [address] [place] [address] PCP - General Internal Medicine - Primary Care 12/22/19 documented as of this encounter
--- OUTSIDE RECORDS SUMMARY | 2024-04-04 12:59 | XMS_ITS | Encounter Summary ---
Author Organization [facility] Address [address] [place] [address] Care Team Providers Care Vat House Supervisor Name Role Phone Nataliia Marley MD Primary Care Provider [phone] Yocasta Cronin Primary Care Provider [phone] Encounter Details Date Type Department Care Team (Late st Contact Info) Description 10/20/2016 Telephone [facility] Dermatology 3rd Floor [facility] [address] [place], [place] [address] Tiffanie Yarbrough MD PhD [address] [facility], [address] [place] [address] Social History Tobacco Use Types Packs/Day Years Used Date Smoking Tobacco: Never Smokeless Tobacco: Never Alcohol Use Standard Drinks/Week Comments Not Asked 0 (1 standard drink = 0.6 oz pur e alcohol) Sex and Gender Information Value Date Recorded [...] documented as of this encounter Care Teams Vat House Supervisor Relationship Specialty Start Date End Date Nataliia Marley MD [address] [place] [phone] PCP - General 09/26/10 12/21/19 Yocasta Cronni [address] [place] [address] PCP - General Internal Medicine - Primary Care 12/22/19 documented as of this encounter
--- OUTSIDE RECORDS SUMMARY | 2024-04-04 12:59 | XMS_ITS | Encounter Summary ---
Author Organization [facility] Address [address] [place] [address] Care Team Providers Care Wash Barrel Leader Name Role Phone Nataliia Marley MD Primary Care Provider [phone] Reason for Visit * Reason Onset Date Comments Biopsy Results 04/21/2013 Returning Call 04/21/2013 biopsy results Encounter Details Date Type Department Care Team (Late st Contact Info) Description 04/21/2013 Telephone [facility] Dermatology 5th [address] [address] Susan Bermudez MD Biopsy Results; Returning Call (biopsy results) Social History Tobacco Use Types Packs/Day Years Used Date Smoking Tobacco: Never Alcohol Use Standard Drinks/Week Comments Not Asked 0 (1 standard drink = 0.6 oz pur e alcohol) Sex and Gender Information Value Date Recorded Sex Assigned at Not on file Gender Identity Female 07/19/2019 21:26 EST Sexual Orientation Not on file documented as of this encounter Miscellaneous Notes * Telephone Encounter - Susan Bermudez MD - 04/21/2013 2578 EST I called Brittani to discuss her biopsy results. The lesion represented a nevus with some atypia, which is expected in the setting of a previous biopsy scar. It did extend to the edges of the tissue specimen, however, the features were not concerning enough to warrant re-excision of the lesion at this time. We will plan to monitor the area clinically for repigmentation and excise if necessary. Brittani will follow up for complete skin examinations once yearly (this is also reasonable given her family history of melanoma). Please schedule Brittani for complete skin exam in 1 year. Susan Bermudez MD 04/21/2013 17:32 * Telephone Encounter - Gabriela Miranda - 04/21/2013 1643 EST Please call patient with biopsy results. * Telephone Encounter - Susan Bermudez MD - 04/21/2013 1324 EST I called Brittani to discuss biopsy results and she was unavailable. I left a message for her on her answering machine. Please PAGE ME when Brittani returns my call. Thanks, Susan Bermudez MD 04/21/2013 13:25 documented in this encounter Plan of Treatment Not on file documented as of this encounter Visit Diagnoses Not on filedocumented in this encounter Care Teams Wash Barrel Leader Relationship Specialty Start Date End Date Nataliia Marley MD [address] [facility] [place] [phone] PCP - General 09/26/10 12/21/19 documented as of this encounter
--- OUTSIDE RECORDS SUMMARY | 2024-04-04 12:59 | XMS_ITS | Encounter Summary ---
Author Organization [facility] Address [address] [place] [address] Care Team Providers Care Voice Systems Engineer Name Role Phone Nataliia Marley MD Primary Care Provider [phone] Encounter Details Date Type Department Care Team (Latest Contact Info) Description 11/07/2016 10:14 EDT - 11/07/2016 23:59 EDT Hospital Encounter [facility] - [address] [address] Kia Buckley, PANTOGRAPH TRANSFERRER [address] [place] [phone] Discharge Disposition: Home or Self Care Social History Tobacco Use Types Packs/Day Years Used Date Smoking Tobacco: Never Smokeless Tobacco: Never Alcohol Use Standard Drinks/Week Comments Not Asked 0 (1 standard drink = 0.6 oz pur e alcohol) Sex and Gender Information Value Date Recorded Sex Assigned at Not on file Gender Identity Female 07/19/2019 21:26 EST Sexual Orientation Not on file documented as of this encounter Discharge Diagnoses Diagnosis R50.9 Fever, unspecified-R50.9[ICD-10-CM] W57.XXXA Bitten or stung by nonvenomous insect and other nonvenomous arthropods, initial encounter-W57.XXXA[ICD-10-CM] documented in this encounter Medications at Time of Discharge Medication Sig Dispensed Refills Start Date End Date clindamycin (CLEOCIN T) 1 % lotion use thin film on affected area once daily. 60 mL 11 04/29/2014 07/19/2019 desog-e.estradiol/e.estr adiol (BRUCE, 28,) 0.15-0.02 mgx21 /0.01 mg x 5 per tablet Take 1 Tab by mouth daily. Reported on 10/20/2016 07/19/2019 fdphxvwq-ppzjafjmv-bjjqh ethasone (MAXITROL) ophthalmic ointmentIndications:Chal azion left upper eyelid Apply to left upper eyelid twice daily to 1 week 1 Tube 04/11/2016 07/19/2019 documented as of this encounter Discharge Disposition Disposition Code Departure Means Destination Home or Self Correction documented in this encounter Plan of Treatment Not on file documented as of this encounter Procedures Procedure Name Priority Date/Time Associated Diagnosis Comments PATHOLOGY - SCANNED 11/10/2016 1 8:51 EDT MISCELLANEOUS TEST, [place] Routine 11/07/2016 10:38 EDT documented in this encounter Results * PATHOLOGY - SCANNED (11/10/2016 18:51 EDT) 11/10/2016 18:5 1 EDT Scan 2 [facility] LAB INFO SERVICE AN D SUPPORT & PHONE RESULT * MISCELLANEOUS TEST (11/07/2016 10:38 EDT) Test Name TICK BORNE DISEASE ANTIBODIES PANEL SERUM 11/07/2016 10:37 EDT [facility] Result See Pathology Scanned Report in PRISM. 11/14/2016 10:50 EDT [facility] Ref Range See Pathology Scanned Report in PRISM. 11/14/2016 10:50 EDT [facility] Ref Lab Test performed by: 11/14/2016 10:50 EDT [facility] Comment: [facility] [place], [place] TOPOGRAPHY UNKNOWN / Unknown 11/07/2016 10:38 EDT 11/07/2016 12:03 EDT Kia Buckley PANTOGRAPH TRANSFERRER CHEMISTRY & BLOOD G ORDERABLES [facility] [address] [place] [address] documented in this encounter Visit Diagnoses Not on filedocumented in this encounter Care Teams Voice Systems Engineer Relationship Specialty Start Date End Date Nataliia Marley MD [address] [place] [phone] PCP - General 09/26/10 12/21/19 documented as of this encounter
--- OUTSIDE RECORDS SUMMARY | 2024-04-04 12:59 | XMS_ITS | Encounter Summary ---
Author Organization [facility] Address [address] [place] [address] Care Team Providers Care Global Upstream Marketing Manager Name Role Phone Nataliia Marley MD Primary Care Provider [phone] Encounter Details Date Type Department Care Team (Late st Contact Info) Description 03/25/2015 Phlebotomy Only [address] [address] Manager Area, Outpatient Social History Tobacco Use Types Packs/Day Years [...] on filedocumented in this encounter Care Teams Global Upstream Marketing Manager Relationship Specialty Start Date End Date Nataliia Marley MD [address] [place] [address] [place] [address] PCP - General 09/26/10 12/21/19 documented as of this encounter
--- OUTSIDE RECORDS SUMMARY | 2024-04-04 12:59 | XMS_ITS | Encounter Summary ---
Author Organization [facility] Address [address] [place] [address] Care Team Providers Care Government Contracts Manager Name Role Phone Nataliia Marley MD Primary Care Provider [phone] Encounter Details Date Type Department Care Team (Late st Contact Info) Description 12/19/2017 Results Only [facility] [phone] Kimmie Peterson MD [address] [place] [phone] Social History Tobacco Use Types Packs/Day Years [...] Name Priority Date/Time Associated Diagnosis Comments PAP TEST- RESULT ONLY Routine 12/19/2017 0:00 EDT documented in this encounter Results * PAP TEST- RESULT ONLY (12/19/2017 0:00 EDT) Pathology Report: CYTOPATHOLOGY REPORT Reports generated via electronic interface contain original data; however they are lacking the format of the original report. Caution should be taken when reading/interpreti ng unformatted reports. Name: ? LUIZ BRADLEY ? Accession #: ? [id number] : ? 1990 (Age: 27) ??F ?Collect Date: ? 12/19/2017 Location: ? [facility] ? Receive Date: ? 12/21/2017 Provider: ?KIMMIE PETERSON MD Copy to: ? Specimen/Source: ?Pap Test, Cervix, ThinPrep Imaging System with manual evaluation Last Menstrual Period: ? 12/11/17 Hormonal/Contracep tive Status: ? Intrauterine device Other: ? Additional clinical information: Z00.00 Z12.4 ? SPECIMEN ADEQUACY ? Satisfactory for Evaluation - transformation zone component present GENERAL CATEGORIZATION ? Negative for Intraepithelial Lesion or Malignancy ? Document reviewed and electronically signed by: ? CARMEN Olvera(ASCP) ? Report Date: ??01/01/2018 09:38 End of Report [facility] 12/19/2017 12/21/2017 Kimmie Peterson MD PATHOLOGY ORD ERABLES [facility] [address] [place] [address] documented in this encounter Visit Diagnoses Not on filedocumented in this encounter Care Teams Government Contracts Manager Relationship Specialty Start Date End Date Nataliia Marley MD [address] [place] [phone] PCP - General 09/26/10 12/21/19 documented as of this encounter
--- OUTSIDE RECORDS SUMMARY | 2024-04-04 12:59 | XMS_ITS | Encounter Summary ---
Author Organization [facility] Address [address] [place] [address] Care Team Providers Care Surgical Orderly Name Role Phone Nataliia Marley MD Primary Care Provider [phone] Yocasta Cronin Primary Care Provider [phone] Reason for Referral * Cardiology (Routine) - Closed Specialty Diagnoses / Procedures [facility] Referred To Contact Diagnoses Examination of participant in clinical trial Procedures EKG 12-LEAD Sanjeev Amador MD [address] [place] [address] Referral ID Status Reason Start Date Expiration Date Visits Re quested Visits Authorized [id number] Closed 08/01/2016 1 1 Encounter Details Date Type Department Care Team (Late st Contact Info) Description 08/01/2016 Orders Only [facility] Cardiology - Main [address] [address] Sanjeev Amador MD [address] [facility] [place] [address] Examination of participant in clinical trial (Primary Dx) Social History Tobacco Use Types [...] Procedure Name Priority Date/Time Associated Diagnosis Comments EKG 12-LEAD Routine 07/31/2016 11:26 EST Examination of participant in clinical trial documented in this encounter Results * EKG 12-LEAD (07/31/2016 11:26 EST) 07/31/2016 11:2 6 EST Narrative [facility] EKG - 08/10/2016 13:19 EST ? [facility] ? Test Date: ?2016-07-31 Pat Name: ? LUIZ BRADLEY ? Department: ?? CRC ? Room: ? Gender: ? F ?Abseiling Instructor: ?? [id number] : ?1990 ? Requested By: MARJORIE DIEGO Order Number: [id number] ? Roe HOWELL: ?? SANJEEV AMADOR MD ? Measurements Intervals ?[place] ? Rate: ? 54 ? P: ?57 TX: ? 172 ?QRS: ?104 QRSD: ? 92 ? T: ?60 QT: ? 409 ? QTc: ?391 ? Interpretive Statements SINUS BRADYCARDIA WITH SINUS ARRHYTHMIA MARKED RIGHT AXIS DEVIATION Compared to ECG 07/31/2016 08:16:35 Sinus arrhythmia now present I reviewed the tracing and have either agreed or edited the findings in this report. Electronically Signed On 08-10-16 13:19:48 EST by SANJEEV AMADOR MD. Procedure Note Sanjeev Amador MD - 08/10/2016 [facility] Test Date: 2016-07-31 Pat Name: LUIZ BRADLEY Department: [facility] Room: Gender: F Abseiling Instructor: [id number] : 1990 Requested By: MARJORIE Corcoran Number: [id number] Reading MD: SANJEEV AMADOR MD Measurements Intervals [place] Rate: 54 P: 57 TX: 172 QRS: 104 QRSD: 92 T: 60 QT: 409 QTc: 391 Interpretive Statements SINUS BRADYCARDIA WITH SINUS ARRHYTHMIA MARKED RIGHT AXIS DEVIATION Compared to ECG 07/31/2016 08:16:35 Sinus arrhythmia now present I reviewed the tracing and have either agreed or edited the findings inthis report. Electronically Signed On 08-10-16 13:19:48 EST by SANJEEV GARCIA. Sanjeev Amador MD CARDIAC ECG ORDERA BLES [facility] EKG documented in this encounter Visit Diagnoses Diagnosis Examination of participant in clinical trial- Primary documented in this encounter Additional Health Concerns Infection Onset Date Last Indicated Resolved Time R/O COVID-19 12/22/2019 12/23/2019 12/28/2019 22:1 7 EDT documented as of this encounter Care Teams Surgical Orderly Relationship Specialty Start Date End Date Nataliia Marley MD [address] [place] [phone] PCP - General 09/26/10 12/21/19 Yocasta Cronin [address] [place] [address] PCP - General Internal Medicine - Primary Care 12/22/19 documented as of this encounter
--- OUTSIDE RECORDS SUMMARY | 2024-04-04 12:59 | XMS_ITS | Encounter Summary ---
Author Organization [facility] Address [address] [place] [address] Care Team Providers Care Community Health Program Representative Name Role Phone Nataliia Marley MD Primary Care Provider [phone] Reason for Visit * Reason Onset Date Comments New/Evolving Symptoms 05/22/2014 Encounter Details Date Type Department Care Team (Late st Contact Info) Description 05/22/2014 Telephone [facility] Dermatology 3rd Floor [address] [address] Susan Bermudez MD New/Evolving Symptoms Social History Tobacco Use Types Packs/Day Years [...] encounter Miscellaneous Notes * Telephone Encounter - Kemi Olea - 05/25/2014 1106 EST Patient seen in April for a Filiform wart, right infraorbital cheek. It was treated via a bishopsoaked with liquid nitrogen. Left message- Dr Bermudez does not have any openings at this time for non-urgent visits. She should keep her 07/07/14 appt and I will call her if I get a cancellation. Kemi Olea 05/25/2014 11:07 * Telephone Encounter - Amanda Vargas - 05/22/2014 1430 EST The skin tags on the patients face was treated but it is still there. Patient wants to be seen sooner than 1.27.15 appointment. documented in this encounter Plan of Treatment Not on file documented as of this encounter Visit Diagnoses Not on filedocumented in this encounter Care Teams Community Health Program Representative Relationship Specialty Start Date End Date Nataliia Marley MD [address] [place] [phone] PCP - General 09/26/10 12/21/19 documented as of this encounter
--- OUTSIDE RECORDS SUMMARY | 2024-04-04 12:59 | XMS_ITS | Encounter Summary ---
Author Organization [facility] Address [address] [place] [address] Care Team Providers Care Owner Spa Director Name Role Phone Nataliia Marley MD Primary Care Provider [phone] Encounter Details Date Type Department Care Team (Late st Contact Info) Description 07/31/2016 7:17 EST - 07/31/2016 12:02 EST Hospital Encounter [facility] Clinical Research Unit - [address] [address] Suresh Sanchez MD [address] [facility], [address] [place] [address] Discharge Disposition: Home or Self Care Social [...] as of this encounter Discharge Diagnoses Diagnosis Z00.6 Encounter for examination for normal comparison and control in clinical research program-Z00.6[ICD-10-CM] documented in this encounter Medications at Time of Discharge Medication Sig Dispensed Refills Start Date End Date clindamycin (CLEOCIN T) 1 % lotion use thin film on affected area once daily. 60 mL 11 04/29/2014 07/19/2019 desog-e.estradiol/e.estr adiol (BRUCE, Silas,) 0.15-0.02 mgx21 /0.01 mg x 5 per tablet Take 1 Tab by mouth daily. Reported on 10/20/2016 07/19/2019 kqsbjbaq-mxbaaacie-tperj ethasone (MAXITROL) ophthalmic ointmentIndications:Chal azion left upper eyelid Apply to left upper eyelid twice daily to 1 week 1 Tube 04/11/2016 07/19/2019 documented as of this encounter Discharge Disposition Disposition Code Departure Means Destination Home or Self Care documented in this encounter Plan of Treatment Not on file documented as of this encounter Procedures Procedure Name Priority Date/Time Associated Diagnosis Comments ECG REPORT - SCANNED 08/11/2016 10:23 EST ORDERS - SCANNED 08/04/2016 11:5 2 EST ECG REPORT - SCANNED 08/02/2016 12:34 EST COMPLETE BLOOD COUNT Routine 07/31/2016 9:12 EST documented in this encounter Results * ECG REPORT - SCANNED (08/11/2016 10:23 EST) 08/11/2016 10:2 3 EST Scan 2 Full Service Supervisor PROCEDURE/MINOR MARTHA GICAL ORDERABLES * ORDERS - SCANNED (08/04/2016 11:52 EST) 08/04/2016 11:5 2 EST Scan 2 Full Service Supervisor ADMISSION ORDERABLE S * ECG REPORT - SCANNED (08/02/2016 12:34 EST) 08/02/2016 12:3 4 EST Scan 2 Full Service Supervisor PROCEDURE/MINOR MARTHA GICAL ORDERABLES * (ABNORMAL) HEMAGRAM (07/31/2016 9:12 EST) WBC 3.70(L) 4.0 - 12.4 K/cmm 07/31/2016 10:01 [facility] RBC 4.12 3.86 - 5.04 M/cmm 07/31/2016 10:01 [facility] Hemoglobin 11.5(L) 11.6 - 15.2 gm/dl 07/31/2016 10:01 [facility] HCT 34.4(L) 34.9 - 44.4 % 07/31/2016 10:01 [facility] MCV 84 81 - 98 fl 07/31/2016 10:01 [facility] MCH 27.9 26.7 - 33.3 pg 07/31/2016 10:01 [facility] MCHC 33.4 32.1 - 35.9 gm/dl 07/31/2016 10:01 [facility] RDW-CV 13.4 11.7 - 14.6 % 07/31/2016 10:01 [facility] RDW-SD 40.7 37.6 - 50.3 fl 07/31/2016 10:01 [facility] PLT 200 141 - 377 K/cmm 07/31/2016 10:01 [facility] MPV 10.6 9.5 - 12.7 fl 07/31/2016 10:01 [facility] BLOOD SPECIMEN / Unknown 07/31/2016 9:12 EST 07/31/2016 9:38 EST Florinda Bee MD HEMATOLOGY & PF4 ORD ERABLES Performing Organization Address City/State/[facility] Co de Phone Number [facility] [address] [place] [address] documented in this encounter Visit Diagnoses Not on filedocumented in this encounter Care Teams Owner Spa Director Relationship Specialty Start Date End Date Nataliia Marley MD [address] [place] [phone] PCP - General 09/26/10 12/21/19 documented as of this encounter
--- OUTSIDE RECORDS SUMMARY | 2024-04-04 12:59 | XMS_ITS | Encounter Summary ---
Author Organization [facility] Address [address] [place] [address] Care Team Providers Care Piggery Worker Name Role Phone Nataliia Marley MD Primary Care Provider [phone] Reason for Visit * Reason Onset Date Comments Appointment Related 03/25/2013 Encounter Details Date Type Department Care Team (Late st Contact Info) Description 03/25/2013 Telephone [facility] Dermatology 5th Floor [address] [address] Susan Bermudez MD Appointment Related Social History Tobacco Use Types Packs/Day Years Used Date Smoking Tobacco: Never Assessed Sex and Gender Information Value Date Recorded Sex Assigned at Not on file Gender Identity Female 07/19/2019 21:26 EST Sexual Orientation Not on file documented as of this encounter Miscellaneous Notes * Telephone Encounter - Nakita Segura - 03/31/2013 1430 EDT 03/31/2013 I left a message for Brittani, informing her that I scheduled her with Dr. Bermudez on 04/23/13 at 3:45. Nakita Segura * Telephone Encounter - Anastasiia Nelson - 03/28/2013 1153 EDT Patient called and states that she needs an appointment for mole removal. Please call. * Telephone Encounter - Kemi Olea - 03/25/2013 1406 EDT Patient needs an appointment in one month with Dr. Bermudez for a biopsy of an atypical nevus Kemi Olea 03/25/2013 14:06 documented in this encounter Plan of Treatment Not on file documented as of this encounter Visit Diagnoses Not on filedocumented in this encounter Care Teams Piggery Worker Relationship Specialty Start Date End Date Nataliia Marley MD [address] [facility] [place] [address] PCP - General 09/26/10 12/21/19 documented as of this encounter
--- OUTSIDE RECORDS SUMMARY | 2024-04-04 12:59 | XMS_ITS | Encounter Summary ---
Author Organization [facility] Address [address] [place] [address] Care Team Providers Care Educational Advisor Name Role Phone Nataliia Marley MD Primary Care Provider [phone] Reason for Visit * Reason Comments Knee Pain right * Consult, Test and Treat (Routine) - Closed Specialty Diagnoses / Procedures Referred By Chandan white Referred To Contact Orthopedic Surgery Diagnoses Right knee pain Elaine Hodgson DNP CN [address] [place] [address] Alin Eller MD [address] [place] [address] Referral ID Status Reason Start Date Expiration Date Visits Re quested Visits Authorized [id number] Closed 1 1 Encounter Details Date Type Department Care Team (Late st Contact Info) Description 09/03/2015 13:30 EDT Office Visit [facility] Sports Medicine Program [place] [address] [place] [address] Alin Eller MD [address] [place] [address] Rupture of anterior cruciate ligament of right knee, initial encounter (Primary Dx) Social History Tobacco Use Types [...] Taken Comments Blood Pressure - - Pulse - - Temperature - - Respiratory Rate - - Oxygen Saturation - - Inhaled Oxygen Concentration - - Weight 63.5 kg (140 lb) 09/03/2015 1331 EDT Height 175.3 cm (5' 9) 09/03/2015 1331 EDT Body Mass Index 20.67 09/03/2015 1331 EDT documented in this encounter Progress Notes * Rose Mary Narvaez RN - 09/07/2015 0842 EDT Patient Education Topic: Preop Surgery: right knee scope, anterior cruciate ligament reconstructionwith bone tendon bone autograft, possible medial meniscus repair. DOS: 01/24/16 Method: Handout and Verbal Taught to: Family and Patient Barriers: None Outcomes: verbalized understanding Patient Education items provided at today's visit: - Dr. Eller's things to do sheet with pertinent dates, times, and contact numbers. - Pre-op Physical Packet - Patient Worksheet for pre-op phone call - Pre-op Advice - Dept. Of Anesthesia Consent Form (copy) - Surgery specific post-op information sheet - Cryo/Cuff Information Sheet -Tylenol Protocol -ACL/Meniscus Repair Protocol -What to expect as an outpatient surgical patient -[facility] Info Signature: Rose Mary Narvaez RN * Alin Eller MD - 09/03/2015 1413 EDT Brittani Bradley is a new patient to see me today. She states that she injured her knee about 2 years ago playing soccer in [place]. She was seen by a education trainer there and no x-rays or MRI was obtained. [place], felt better, started to resume some full activities. Her knee always felt a little bit looser and a little bit different. She tried rehabing, strength training then went sledding this winter, her knee slipped out of place and was bothering her significantly. She feels that her knee is only 80%. This is not a worker's comp. She has never hurt her knee other than that 2 times as discussed. She has to brace it. She enjoys being active and this is limiting her ability to do so. Please see our intake exam. I have signed off on it. I reviewed her entire review of systems. PAST MEDICAL HISTORY: Good general medical health. FAMILY HISTORY: Negative for DVT. 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 She enjoys yoga, biking and gym exercise. She is 5 feet 9 inches, 140 pounds. GENERAL EXAM: Constitutional: Well groomed. Eyes reactive. Respiratory: No labored breathing. Psychiatric: Responsive to exam. Skin: Normal skin color. Neurologic exam: Sensation to soft touch intact. Cardiovascular: Brisk capillary refill. Musculoskeletal exam: Specifically looking at the right lower extremity, she has no serious effusion. Palpation: No areas of tenderness. Range of motion is near full, strength is excellent. Her Racquel has increased anterior laxity of about 10 mm more than the other side. She has a very soft endpoint. The pivot shift was grossly positive. The dial test wasnegative. MRI was reviewed shows ACL tear, medial meniscus tear that is mild and very peripheral. We had a long talk about operative and nonoperative intervention. She has failed operative intervention due to recurrent instability and working hard on her therapy and exercise program. My plan will be for ACL reconstruction, lhyf-ysbvbi-tklq autograft. The procedure, risks, and benefits were explained and understood. She gave consent to proceed. Complications discussed, therapy discussed. Exercise program discussed being careful over the summer because she would like to get through school this summer without having surgery. The procedure, risks, and benefits were explained and understood. She gave consent to proceed. CC: Nataliia Marley MD documented in this encounter Plan of Treatment Not on file documented as of this encounter Visit Diagnoses Diagnosis Rupture of anterior cruciate ligament of right knee, initial encounter- Primary documented in this encounter Care Teams Educational Advisor Relationship Specialty Start Date End Date Nataliia Marley MD [address] [place] [address] PCP - General 09/26/10 12/21/19 documented as of this encounter
--- OUTSIDE RECORDS SUMMARY | 2024-04-04 12:59 | XMS_ITS | Encounter Summary ---
Author Organization [facility] Address [address] [place] [address] Care Team Providers Care Model Home Sales Greeter Name Role Phone Nataliia Marley MD Primary Care Provider [phone] Reason for Visit * Reason Comments Skin Exam FBSE and patient rep orts there is a mole of concern on her buttocks. Encounter Details Date Type Department Care Team (Late st Contact Info) Description 08/15/2016 15:15 EST Office Visit [facility] Dermatology 5th Floor [facility] [address] [place] [address] Patsy Lopes MD [address] [place] [address] Aguilar Graves MD [address] [place] [address] Atypical nevus of buttock (Primary Dx) Social History Tobacco Use Types Packs/Day Years Used Date Smoking Tobacco: Never Alcohol Use Standard Drinks/Week Comments Not Asked 0 (1 standard drink = 0.6 oz pur e alcohol) Sex and Gender Information Value Date Recorded Sex Assigned at Not on file Gender Identity Female 07/19/2019 21:26 EST Sexual Orientation Not on file documented as of this encounter Progress Notes * Lynn Menchaca A.E. - 08/15/2016 1515 EST Review of Systems Constitutional: Negative for fatigue, fever and unexpected weight change. HENT: Negative for mouth sores. Eyes: Negative for pain. Respiratory: Negative for cough and shortness of breath. Cardiovascular: Negative for chest pain and palpitations. Gastrointestinal: Negative for abdominal pain, blood in stool, constipation, diarrhea, nausea and vomiting. Genitourinary: Negative for dysuria, frequency and hematuria. Musculoskeletal: Negative for myalgias, joint swelling, arthralgias and muscle stiffness in the morning. Skin: Negative for rash. Neurological: Negative for numbness and headaches. Endo/Heme/Allergies: Does not bruise/bleed easily. Psychiatric/Behavioral: Negative for sleep disturbance. The patient is not nervous/anxious. Lynn Menchaca 08/15/2016 15:13 * Aguilar Graves MD - 08/15/2016 2573 EST Resident Clinic: Dermatology Outpatient Visit Note Chief Complaint Patient presents with ??? Skin Exam FBSE and patient reports there is a mole of concern on her buttocks. Dermatologic History: 1. Recurrent/persistent atypical nevus, left central upper back 2. Family history of melanoma (father) Last Dermatology office visit: 04/29/2014 SUBJECTIVE Ms. Bradley is a 26 y.o. female who presents for follow up for full body skin exam. She hasa few nevi she would like checked today. No new bleeding, painful or itchy lesions. She notes a spot on her right buttocks (inner crease) which has been present for some time, she had not noticed it until one of her providers saw it. Wanted to have it checked today. For full Medical, Surgical, Family, and Social histories, please see the History section of this encounter in the electronic chart which I have personally reviewed. For Review of Systems, Medications and Allergies, please see those sections of this encounter in the electronic chart which I have also reviewed. She has a current medication list which includes the following prescription(s): clindamycin, desog-e.estradiol/e.estradiol, and uyfvrvin-skmwmaafx-kmaqzebydenkc. She is allergic to penicillins and unable to assess. OBJECTIVE VS: There were no vitals taken for this visit. Ms. Bradley is healthy and well developed, well-nourished female sitting on the examination table with a normal affect. She is alert and oriented to person, place and time. She has Finn type II skin. Cutaneous full body examination including the hair, scalp, face, eyelids, lips, neck, chest, back, abdomen, all four extremities, hands, feet, digits and nails was performed.The examination was normal with the addition of the following comments: 1. Right gluteal crease: 8 mm dark brown, speckled papule ASSESSMENT + PLAN 1. 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 Family history of melanoma in first degree relative -Should continue with preventative screening given increased risk with 1st degree relative with melanoma She will f/u as planned or in the interim should problems arise. Aguilar Graves MD 08/15/2016 15:43 Attestation Statement: I saw and examined the patient with the resident/fellow. I agree with the findings and plan of care documented in the resident's/fellow's note. Patsy Lopes MD 09/12/2016 documented in this encounter Plan of Treatment Not on file documented as of this encounter Visit Diagnoses Diagnosis Atypical nevus of buttock- Primary Benign neoplasm of skin of trunk, except scrotum documented in this encounter Care Teams Model Home Sales Greeter Relationship Specialty Start Date End Date Nataliia Marley MD [address] [place] [phone] PCP - General 09/26/10 12/21/19 documented as of this encounter
--- OUTSIDE RECORDS SUMMARY | 2024-04-04 12:59 | XMS_ITS | Encounter Summary ---
Author Organization [facility] Address [address] [place] [address] Care Team Providers Care Food Service Hotel Runner Name Role Phone Nataliia Marley MD Primary Care Provider [phone] Encounter Details Date Type Department Care Team (Late st Contact Info) Description 09/24/2018 Historical Results Only [facility] Lab - Main [address] [address] Unknown, Provider, Social History Tobacco Use Types Packs/Day Years [...] Procedure Name Priority Date/Time Associated Diagnosis Comments QUANTIFERON TB GOLD PLUS Routine 09/24/2018 9:54 EDT VARICELLA IGG ANTIBODY Routine 09/24/2018 9:54 EDT HEPATITIS B SURFACE ANTIBODY Routine 09/24/2018 9:53 EDT documented in this encounter Results * VARICELLA IGG ANTIBODY (09/24/2018 9:54 EDT) Varicella IgG Ab Positive Negative 09/26/2018 22:37 EDT [facility] Comment:Presumed immune to V aricella infection. 09/24/2018 9:54 EDT 09/24/2018 9:54 EDT [facility] - 09/26/2018 22:37 EDT Does PT Have a Latex Allergy? NO Provider Unknown IMMUNOLOGY AND SEROL OGY ORDERABLES Performing Organization Address City/[facility]/ZIP Co de Phone Number [facility] * QUANTIFERON TB GOLD PLUS (09/24/2018 9:54 EDT) Quantiferon Interpretation Negative NEGAT 09/27/2018 14:33 EDT [facility] Comment: Reference Range: Negative No interferon-gamma response to M. tuberculosis antigens was detected. Infection with M. tuberculosis is unlikely. A single negative result does not exclude infection with M. tuberculosis. In patients at high risk for M. tuberculosis infection, a second test should be considered in accordance with the 2017 ATS/IDSA/CDC Clinical Practive Guidelines for Diagnosis of Tuberculosis in Adults and Children [Kirsty TYSON et. al. Clin. Infect. Dis. 2017:64(2):111-115]. Results were obtained with the Qiagen QuantiFERON-TB Gold Plus ROSAS. TB1 Ag minus Nil 0.00 () IU/mL 09/28/19 19 14:33 EDT [facility] TB2 Ag minus Nil 0.00 () IU/mL 09/28/19 14:33 EDT [facility] Comment: Test performed [place] [address] 09/24/2018 9:54 EDT 09/24/2018 9:54 EDT [facility] - 09/27/2018 14:33 EDT Does PT Have a Latex Allergy? NO Provider Unknown CHEMISTRY & BLOOD GA S ORDERABLES [facility] * HEPATITIS B SURFACE ANTIBODY (09/24/2018 9:53 EDT) Hep B Surface Ab, Qualitative > 1000 09/24/2018 11:41 EDT [facility] Comment: ? Interpretative Guidelines >=12.00 mIU/mL ??= Positive Clinical Interpretation of Immune Status: Anti-HBs detected at >10 mIU/mL. Patient is considered to be immune to infection with HBV. ??It has not been determined what the clinical significance is for values greater than or = 12 mIU/mL, other than the individual is considered to be immune to HBV infection. The results of this assay can be falsely lowered due to the consumption of Biotin. 09/24/2018 9:53 EDT 09/24/2018 9:53 EDT Narrative [facility] - 09/24/2018 11:41 EDT Does PT Have a Latex Allergy? NO Provider Unknown CHEMISTRY & BLOOD GA S ORDERABLES Performing Organization Address City/State/[facility] Co de Phone Number [facility] documented in this encounter Visit Diagnoses Not on filedocumented in this encounter Care Teams Food Service Hotel Runner Relationship Specialty Start Date End Date Nataliia Marley MD [address] [place] [address] PCP - General 09/26/10 12/21/19 documented as of this encounter
--- OUTSIDE RECORDS SUMMARY | 2024-04-04 12:59 | XMS_ITS | Encounter Summary ---
Author Organization [facility] Address [address] [place] [address] Care Team Providers Care Banquet Pilot Name Role Phone Nataliia Marley MD Primary Care Provider [phone] Encounter Details Date Type Department Care Team (Late st Contact Info) Description 07/31/2016 Results Only [facility] Obstetrics & Midwifery - [address] [phone] Karen Pineda MD [address] [facility], [address] [place] [phone] Social History Tobacco Use Types Packs/Day Years Used Date Smoking Tobacco: Never Alcohol Use Standard Drinks/Week Comments Not Asked 0 (1 standard drink = 0.6 oz pur e alcohol) Sex and Gender Information Value Date Recorded Sex Assigned at Not on file Gender Identity Female 07/19/2019 21:26 EST Sexual Orientation Not on file documented as of this encounter Plan of Treatment Pending Results Name Type Priority Associated Diagnoses Date/Time STRESS ECHOCARDIOGRAM Echocardiography 07/31/2016 11:35 EST documented as of this encounter Visit Diagnoses Not on filedocumented in this encounter Care Teams Banquet Pilot Relationship Specialty Start Date End Date Nataliia Marley MD [address] [place] [phone] PCP - General 09/26/10 12/21/19 documented as of this encounter
--- OUTSIDE RECORDS SUMMARY | 2024-04-04 12:59 | XMS_ITS | Encounter Summary ---
Author Organization [facility] Address [address] [place] [address] Care Team Providers Care Forming Acid Dumper Name Role Phone Nataliia Marley MD Primary Care Provider [phone] Yocasta rConin Primary Care Provider [phone] Reason for Visit * Reason Onset Date Comments Appointment Related 09/13/2016 Encounter Details Date Type Department Care Team (Late st Contact Info) Description 09/13/2016 Telephone [facility] Dermatology 3rd [address] [address] Aguilar Graves MD [address] [place] [address] Appointment Related Social History Tobacco Use Types [...] encounter Miscellaneous Notes * Telephone Encounter - Sagrario Jimenez - 09/15/2016 1024 EDT Left message for patient requesting a return call. She has been scheduled to see Dr. Yarbrough on 10/20 at9:40AM. Sagrario Jimenez 09/15/2016 10:24 * Telephone Encounter - Sagrario Gagnon - 09/14/2016 1603 EDT The patient is returning your call to discuss and schedule. * Telephone Encounter - Sagrario Jimenez - 09/14/2016 1553 EDT Left message for patient to call back. Dr. Lopes has no availability during patient's stated availability. Patient can be scheduled with another provider if she is okay with that plan, and wants diana seen on one of those days. Sagrario Jimenez 09/14/2016 15:54 * Telephone Encounter - Anne-Marie Rojas - 09/13/2016 1644 EDT The patient was told to schedule an appointment with Dr. Lopes for a mole removal on her buttocks. The patient would like to give the follow ing dates that work for her: 10/18 (afternoon) , 10/19, and 10/20. Please call the patient to schedule an appointment. documented in this encounter Plan of Treatment Not on file documented as of this encounter Visit Diagnoses Not on filedocumented in this encounter Additional Health Concerns Infection Onset Date Last Indicated Resolved Time R/O COVID-19 12/22/2019 12/23/2019 12/28/2019 22:1 7 EDT documented as of this encounter Care Teams Forming Acid Dumper Relationship Specialty Start Date End Date Nataliia Marley MD [address] [place] [phone] PCP - General 09/26/10 12/21/19 Yocasta Cronin [address] [id number] PCP - General Internal Medicine - Primary Care 12/22/19 documented as of this encounter
--- OUTSIDE RECORDS SUMMARY | 2024-04-04 12:59 | XMS_ITS | Encounter Summary ---
Author Organization [facility] Address [address] [place] [address] Care Team Providers Care Author Agent Name Role Phone Nataliia Marley MD Primary Care Provider [phone] Encounter Details Date Type Department Care Team (Late st Contact Info) Description 08/15/2013 11:11 EST - 08/15/2013 23:59 EST Hospital Encounter [address] [address] Gabi Rajput MD [address] [facility], [address] [place] [phone] Discharge Disposition: Home or Self Care Social [...] file documented as of this encounter Discharge Disposition Disposition Code Departure Means Destination Home or Self Long Term documented in this encounter Plan of Treatment Not on file documented as of this encounter Visit Diagnoses Not on filedocumented in this encounter Care Teams Author Agent Relationship Specialty Start Date End Date Nataliia Marley MD [address] [place] [phone] PCP - General 09/26/10 12/21/19 documented as of this encounter
--- OUTSIDE RECORDS SUMMARY | 2024-04-04 12:59 | XMS_ITS | Encounter Summary ---
Author Organization [facility] Address [address] [place] [address] Care Team Providers Care Superintendent Cemetery Name Role Phone Nataliia Marley MD Primary Care Provider [phone] Encounter Details Date Type Department Care Team (Latest Contact Info) Description 03/25/2015 14:46 EDT - 03/25/2015 23:59 EDT Hospital Encounter [address] [address] Jessie Teixeira MD [address] [place] [phone] Discharge Disposition: Home or Self Care Social [...] as of this encounter Discharge Diagnoses Diagnosis Z01.84 Encounter for antibody response examination-Z01.84[ICD-10-CM] documented in this encounter Medications at Time of Discharge Medication Sig Dispensed Refills Start Date End Date clindamycin (CLEOCIN T) 1 % lotion use thin film on affected area once daily. 60 mL 11 04/29/2014 07/19/2019 desog-e.estradiol/e.estr adiol (BRUCE, 28,) 0.15-0.02 mgx21 /0.01 mg x 5 per tablet Take 1 Tab by mouth daily. Reported on 10/20/2016 07/19/2019 documented as of this encounter Discharge Disposition Disposition Code Departure Means Destination Home or Self Correction documented in this encounter Plan of Treatment Not on file documented as of this encounter Procedures Procedure Name Priority Date/Time Associated Diagnosis Comments MR EXTREMITY KNEE WO CONTRAST 07/12/2015 19:39 EST HEPATITIS B SURFACE ANTIBODY Routine 03/25/2015 14:52 EDT documented in this encounter Results * MR EXTREMITY KNEE WO CONTRAST (07/12/2015 19:39 EST) Anatomical Region Laterality Modality Other 07/12/2015 19:3 9 EST 07/13/2015 11:38 EST Narrative 07/13/2015 11:38 EST MR RIGHT KNEE WO CONTRAST ??07/12/2015 7:39 PM Signs and Symptoms: ??Right knee pain with instability which is worsening x years. Comparison: none Technique: Routine multiplanar sagittal, coronal and axial conventional MR images with long and short TR sequences of the right knee were obtained without contrast administration. Findings: There is a complete tear of the anterior cruciate ligament. The torn fibers are largely been resolved, this likely relates to chronicity with this being a relatively remote injury, though correlate for history of time of injury. The posterior horn of the medial meniscus contains a vertical longitudinal tear in the far peripheral portion (sagittal T2 fat sat #15). The lateral meniscus is intact. The medial and posteromedial supporting structures of the knee are intact. There is also T2 signal surrounding the fibular collateral ligament though its fibers appear intact. This is reflective of a low-grade sprain. The remaining lateral and posterolateral structures appear intact. The cartilage of the medial compartment essentially preserved. The cartilage of the lateral compartment is preserved. The cartilage of patellofemoral compartment demonstrates mild thinning along the medial patellar facet without full-thickness regions of fissuring and/or cartilage loss. There is a trace knee joint effusion which is decompressed into a tiny Olivera's cyst. Note is made of bone marrow contusion involving the posterolateral portion of the lateral tibial plateau. Impression: 1. ??Complete ACL tear, likely chronic given resorption of much of the torn ligament fibers, please correlate with timing of injury. 2. ??Vertical longitudinal tear in the far peripheral portion of the posterior horn medial meniscus. 3. ??Low-grade sprain fibular collateral ligament without a discrete tear. Remaining of the lateral and medial supporting structures are intact. 4. ??Bone marrow contusion in the posterior aspect of the lateral tibial plateau, please correlate for mechanism of ACL injury as this could represent a pivot-shift mechanism though no opposed bone marrow contusion is seen on the lateral femoral condyle. 5. ??Trace amount of articular fluid without a sizable right knee joint effusion. I have personally reviewed the images and the above interpretation and agree with the findings. Procedure Note Garett Peterson MD - 07/13/2015 MR RIGHT KNEE WO CONTRAST 07/12/2015 7:39 PM Signs and Symptoms: Right knee pain with instability which is worsening x years. Comparison: none Technique: Routine multiplanar sagittal, coronal and axial conventional MR images with long and short TR sequences of the right knee were obtained without contrast administration. Findings: There is a complete tear of the anterior cruciate ligament. The torn fibers are largely been resolved, this likely relates to chronicity with this being a relatively remote injury, though correlate for history of time of injury. The posterior horn of the medial meniscus contains a vertical longitudinal tear in the far peripheral portion (sagittal T2 fat sat #15). The lateral meniscus is intact. The medial and posteromedial supporting structures of the knee are intact. There is also T2 signal surrounding the fibular collateral ligament though its fibers appear intact. This is reflective of a low-grade sprain. The remaining lateral and posterolateral structures appear intact. The cartilage of the medial compartment essentially preserved. The cartilage of the lateral compartment is preserved. The cartilage of patellofemoral compartment demonstrates mild thinning along the medial patellar facet without full-thickness regions of fissuring and/or cartilage loss. There is a trace knee joint effusion which is decompressed into a tiny Olivera's cyst. Note is made of bone marrow contusion involving the posterolateral portion of the lateral tibial plateau. Impression: 1. Complete ACL tear, likely chronic given resorption of much of the torn ligament fibers, please correlate with timing of injury. 2. Vertical longitudinal tear in the far peripheral portion of the posterior horn medial meniscus. 3. Low-grade sprain fibular collateral ligament without a discrete tear. Remaining of the lateral and medial supporting structures are intact. 4. Bone marrow contusion in the posterior aspect of the lateral tibial plateau, please correlate for mechanism of ACL injury as this could represent a pivot-shift mechanism though no opposed bone marrow contusion is seen on the lateral femoral condyle. 5. Trace amount of articular fluid without a sizable right knee joint effusion. I have personally reviewed the images and the above interpretation and agree with the findings. Elaine Hodgson DNP CNM INSURANCE CONSULTANT IMG MRI OR DERABLES * HEPATITIS B SURFACE ANTIBODY (03/25/2015 14:52 EDT) Hepatitis B Surface Ab Positive 03/26/2015 11:[address] [facility] Comment: Reference Range: Unvaccinated: ??Negative Vaccinated: ??Positive HBs Antibody, Quant >1,000.0 mIU/mL 03/26/2015 11:[address] [facility] Comment: Patient is presumed to be immune to infection with HBV. Reference Range: Positive: >=12.0 mIU/mL Indeterminate: >=5.0 to <12.0 mIU/mL Negative: <5.0 mIU/mL BLOOD SPECIMEN / Unknown 03/25/2015 14:52 EDT 03/25/2015 16:57 EDT Jessie Teixeira MD CHEMISTRY & BLOOD GA S ORDERABLES Performing Organization Address City/State/[facility] Co de Phone Number [facility] [address] [place] [address] documented in this encounter Visit Diagnoses Not on filedocumented in this encounter Care Teams Superintendent Cemetery Relationship Specialty Start Date End Date Nataliia Marley MD [address] [place] [phone] PCP - General 09/26/10 12/21/19 documented as of this encounter
--- OUTSIDE RECORDS SUMMARY | 2024-04-04 12:59 | XMS_ITS | Encounter Summary ---
Author Organization [facility] Address [address] [place] [address] Care Team Providers Care Photovoltaic Installation Technician Name Role Phone Nataliia Marley MD Primary Care Provider [phone] Reason for Visit * Reason Comments Appointment Related Encounter Details Date Type Department Care Team (Late st Contact Info) Description 01/03/2016 Telephone [facility] Sports Medicine Program - Natasha [place], [place] [phone] Rose Mary Muñoz, ROQUE Ibarra [place], [place] [phone] Appointment Related Social History Tobacco Use Types [...] encounter Miscellaneous Notes * Telephone Encounter - Rose Mary Narvaez RN - 01/03/2016 1410 EDT I received a call from Brittani to cancel her scheduled surgery with Dr. Eller 01/31/16. She was scheduled for a right knee scope, ACL autograft with medial meniscus repair. She states that her knee has felt stable and she does not feel like she needs surgery. I told her to call me in the future if she decides she wants to see Dr. Eller again. documented in this encounter Plan of Treatment Not on file documented as of this encounter Visit Diagnoses Not on filedocumented in this encounter Care Teams Photovoltaic Installation Technician Relationship Specialty Start Date End Date Nataliia Marley MD [address] [place] [phone] PCP - General 09/26/10 12/21/19 documented as of this encounter
--- OUTSIDE RECORDS SUMMARY | 2024-04-04 12:59 | XMS_ITS | Encounter Summary ---
Author Organization [facility] Address [address] [place] [address] Care Team Providers Care Scrap Separator Name Role Phone Nataliia Marley MD Primary Care Provider [phone] Reason for Visit * Reason Onset Date Comments Research 05/16/2016 Encounter Details Date Type Department Care Team (Late st Contact Info) Description 05/16/2016 Orders Only [facility] Obstetrics & Midwifery - [address] [phone] Florinda Bee MD Research exam (Primary Dx) Social History Tobacco Use Types [...] Pending Results Name Type Priority Associated Diagnoses Date /Time TREADMILL STRESS ECHO WAVEFORM Echocardiography Routine 07/27/2016 10:2 5 EST documented as of this encounter Visit Diagnoses Diagnosis Research exam- Primary Examination of participant in clinical trial documented in this encounter Care Teams Scrap Separator Relationship Specialty Start Date End Date Nataliia Marley MD 4 [facility] [place] [phone] PCP - General 09/26/10 12/21/19 documented as of this encounter
--- OUTSIDE RECORDS SUMMARY | 2024-04-04 12:59 | XMS_ITS | Encounter Summary ---
Author Organization [facility] Address [address] [place] [address] Care Team Providers Care Chipper Feeder Name Role Phone Nataliia Marley MD Primary Care Provider [phone] Encounter Details Date Type Department Care Team (Late st Contact Info) Description 08/15/2013 11:09 EST - 08/15/2013 11:10 EST Hospital Encounter [address] [address] Gabi Rajput MD [address] [facility], [address] [place] [phone] Discharge Disposition: Home or Self Care Social [...] Code Departure Means Destination Home or Self [facility] documented in this encounter Plan of Treatment Not on file documented as of this encounter Visit Diagnoses Not on filedocumented in this encounter Care Teams Chipper Feeder Relationship Specialty Start Date End Date Nataliia Marley MD [address] [place] [phone] PCP - General 09/26/10 12/21/19 documented as of this encounter
--- OUTSIDE RECORDS SUMMARY | 2024-04-04 12:59 | XMS_ITS | Encounter Summary ---
Author Organization [facility] Address [address] [place] [address] Care Team Providers Care Program Director/Traffic Director Name Role Phone Nataliia Marley MD Primary Care Provider [phone] Encounter Details Date Type Department Care Team (Latest Contact Info) Description 07/12/2015 18:53 EST - 07/12/2015 23:59 EST Hospital Encounter [address] [address] Nataliia Marley MD [address] [place] [phone] Discharge Disposition: Home or Self Care Social [...] as of this encounter Discharge Diagnoses Diagnosis Z01.89 Encounter for other specified special examinations-Z01.89[ICD-10-CM] documented in this encounter Medications at Time [...] Code Departure Means Destination Home or Self Intermediate documented in this encounter Plan of Treatment Not on file documented as of this encounter Visit Diagnoses Not on filedocumented in this encounter Care Teams Program Director/Traffic Director Relationship Specialty Start Date End Date Nataliia Marley MD [address] [place] [address] PCP - General 09/26/10 12/21/19 documented as of this encounter
--- OUTSIDE RECORDS SUMMARY | 2024-04-04 12:59 | XMS_ITS | Encounter Summary ---
Author Organization [facility] Address [address] [place] [address] Care Team Providers Care Route Delivery Clerk Name Role Phone Unavailable Primary Care Provider Unavailabl e Encounter Details Date Type Department Care Team (Late st Contact Info) Description 09/21/2010 Results Only [facility] Laboratory Services - [facility] ([facility] [address] [place] [phone] Nataliia Charles MD [address] [place] [phone] Social History Tobacco Use Types Packs/Day Years Used Date Smoking Tobacco: Never Assessed Sex and Gender Information Value Date Recorded Sex Assigned at Not on file Gender Identity Female 07/19/2019 21:26 EST Sexual Orientation Not on file documented as of this encounter Plan of Treatment Not on file documented as of this encounter Procedures Procedure Name Priority Date/Time Associated Diagnosis Comments SURGICAL PATHOLOGY Routine 09/21/2010 0:00 EDT documented in this encounter Results * SURGICAL PATHOLOGY (09/21/2010 0:00 EDT) Pathology Report: SURGICAL PATHOLOGY REPORT ? Reports generated via electronic interface contain original data; ? however they are lacking the format of the original report. ? Caution should be taken when reading/interpreti ng unformatted reports. ? Name: ? MIRNA, LUIZ R ? Accession #: ? [id number] ? : ? 1990 (Age: 20) ??F ? Collect Date: ? 09/21/2010 ? Location: ? [facility] ? Receive Date: ? 09/22/2010 ? Provider: NATALIIA CHARLES MD ? Copy to: ? Final Pathologic Diagnosis: ? Skin of back, upper, punch biopsy: ? 1. ?Melanocytic nevus, compound type. ??See comment. ? - Nevus extends to peripheral edges of punch biopsy specimen. ? Comment: ? The biopsy consists of a compound melanocytic nevus that is predominated by the dermal component. ??The dermal component is relatively cellular and ? associated with abundant melanin pigment in some areas. ??In general, the dermal melanocytes show features of maturation with no significant atypia. ??The nevus ?? is transected at both edges of the punch biopsy specimen. Therefore, correlation with the clinical appearance of the lesion is essential. ??If this is a small ? biopsy of a much larger lesion, the histologic features may not be ? workforce services representative of the entire lesion. ??(Dr. Holly)/mms ? Microscopic Description: ? Sections consist of a bisected punch biopsy of skin to the deep reticular ?? dermis. ??The epidermis is hyperplastic with long and anastomosing rete ridges ?? and formation of horn pseudocysts. ??There is a compound melanocytic ? proliferation that spans the biopsy specimen. ??The intraepidermal component ? consists of nests that vary in size and shape. ??The nests are relatively ? discrete and individual cells are not appreciably increased in density. ??The ? dermal component consists of nests, cords, and strands of melanocytes. ??The ? melanocytes are slightly enlarged and the superficial cells have a moderate ? amount of cytoplasm. ??There is coarse melanin pigment throughout. ??In general, ?? the melanocytes show features of maturation with descent with no significant ? atypia. ??There are scattered melanophages. ??(Dr. Holly)/mms ? Document reviewed and electronically signed by: ? OLGA HOLLY MD ? Report ??Date: 09/23/2010 16:07 ? By the signature above, the attending physician certifies that he/she has ? personally conducted a gross and/or microscopic examination of the described ? specimens and rendered or confirmed the above diagnosis. ? Specimen(s) Received: ? Punch bx from upper back ? Clinical History: ? Enlarging, atypical nevus upper back ? Gross Description: ? Received in formalin labelled Mirna, Luiz and punch bx from upper ? back is an ovoid punch biopsy of mcclain-brown, granular skin measuring 0.4 x 0.3 ?? cm in diameter and 0.2 cm in thickness. ??The specimen is bisected and entirely ?? submitted in a single cassette. ??/francisca ? End of Report ? [facility] 09/21/2010 09/22/2010 17: 54 EDT Nataliia Charles MD PATHOLOGY ORDERABLES [facility] [address] [place] [address] documented in this encounter Visit Diagnoses Not on filedocumented in this encounter
--- OUTSIDE RECORDS SUMMARY | 2024-04-04 12:59 | XMS_ITS | Encounter Summary ---
Author Organization [facility] Address [address] [place] [address] Care Team Providers Care Chief Data Officer Name Role Phone Nataliia Marley MD Primary Care Provider [phone] Encounter Details Date Type Department Care Team (Late st Contact Info) Description 08/18/2013 Results Only [facility] Pulmonology & Critical Care - [address] [phone] Gabi Rajput MD 111 [facility], [address] [place] [phone] Social History Tobacco Use Types [...] Procedure Name Priority Date/Time Associated Diagnosis Comments IGE Routine 08/15/2013 11:00 EST documented in this encounter Results * (ABNORMAL) IGE (08/15/2013 11:00 EST) IgE 348(H) <158 IU/ml [facility] 08/15/2013 11:0 0 EST 08/18/2013 13:19 EDT Gabi Rajput MD CHEMISTRY & BLOO D GAS ORDERABLES [facility] [address] [place] [address] documented in this encounter Visit Diagnoses Not on filedocumented in this encounter Care Teams Chief Data Officer Relationship Specialty Start Date End Date Nataliia Marley MD [address] [place] [phone] PCP - General 09/26/10 12/21/19 documented as of this encounter
--- OUTSIDE RECORDS SUMMARY | 2024-04-04 12:59 | XMS_ITS | Encounter Summary ---
Author Organization [facility] Address [address] [place] [address] Care Team Providers Care Bulb Grower Name Role Phone Nataliia Marley MD Primary Care Provider [phone] Reason for Visit * Reason Onset Date Comments Biopsy Results 10/24/2016 Encounter Details Date Type Department Care Team (Late st Contact Info) Description 10/24/2016 Telephone [facility] Dermatology 3rd Floor [facility] [address] [place], [place] [address] Tiffanie Yarbrough MD PhD 111 [facility], [facility] [address] [place] [phone] Biopsy Results Social History Tobacco Use Types Packs/Day Years [...] encounter Miscellaneous Notes * Telephone Encounter - Gabriela Urrutia - 10/24/2016 0654 EDT Spoke with patient regarding biopsy results. She verbalized understanding and had no further questions at this time. Denied wanting to schedule FUR visit at this time. Gabriela Urrutia 10/24/2016 15:55 * Telephone Encounter - Sabrina Johnson - 10/24/2016 1529 EDT Patient returned call to obtain biopsy results. Please call. * Telephone Encounter - Gabriela Urrutia - 10/24/2016 1525 EDT Left message for patient to return call for biopsy results. Gabriela Urrutia 10/24/2016 15:26 * Telephone Encounter - Gabriela Urrutia - 10/24/2016 1525 EDT ----- Message from Tiffanie Yarbrough MD sent at 10/24/2016 13:31 EDT ----- Please notify patient of benign diagnosis. No further treatment needed to the area. SKIN OF PERINEUM, RIGHT, SHAVE BIOPSY: - Melanocytic nevus, compound type. ??- Lesion extends to peripheral edge and base of biopsy specimen. ?? Please offer follow up with me in 1 year. Tiffanie Yarbrough MD documented in this encounter Plan of Treatment Not on file documented as of this encounter Visit Diagnoses Not on filedocumented in this encounter Care Teams Bulb Grower Relationship Specialty Start Date End Date Nataliia Marley MD [address] [place] [phone] PCP - General 09/26/10 12/21/19 documented as of this encounter
--- OUTSIDE RECORDS SUMMARY | 2024-04-04 12:59 | XMS_ITS | Encounter Summary ---
Author Organization [facility] Address [address] [place] [address] Care Team Providers Care Shop Foreman Name Role Phone Nataliia Marley MD Primary Care Provider [phone] Reason for Visit * Reason Comments Nevus changing on back Encounter Details Date Type Department Care Team (Late st Contact Info) Description 04/16/2013 16:30 EST Office Visit [facility] Dermatology [address] [address] Unknown, Provider, Susan Bermudez MD Neoplasm of unspecified nature of bone, soft tissue, and skin (Primary Dx) Discharge Disposition: Auto Discharge Social History Tobacco Use Types Packs/Day Years Used Date Smoking Tobacco: Never Alcohol Use Standard Drinks/Week Comments Not Asked 0 (1 standard drink = 0.6 oz pur e alcohol) Sex and Gender Information Value Date Recorded Sex Assigned at Not on file Gender Identity Female 07/19/2019 21:26 EST Sexual Orientation Not on file documented as of this encounter Discharge Diagnoses Diagnosis 239.2 BONE/SKIN NEOPLASM NOS[ICD-9-CM] documented in this encounter Patient Instructions * Patient Instructions* Susan Bermudez MD - 04/16/2013 16:22 EST DERMATOLOGY WOUND CARE INSTRUCTIONS FOR SKIN BIOPSY The DRESSING/BANDAID should remain in place for 24 hours. You may shower or bathe after 24 hours; remove the bandage and replace it after the shower. DISCOMFORT: Extra-Strength Tylenol, as directed by pricing director, usually relieves any pain you may have. BLEEDING: You may notice some blood on the edges of the dressing the first day and this is NORMAL. If the bleeding soaks through the dressing, remove the dressing, and apply firm, steady pressure with a moist clean wash cloth for fifteen minutes. If the bleeding stops, redress the wound, if not, call our office at . ACTIVITY: You may resume normal activity in 1 day unless instructed otherwise. WOUND CARE: ?? Wash hands with soap and water before changing the dressing. ?? Change the dressing daily and when it becomes wet. Clean the wound daily with mild soap and water. You may gently loosen any crusts with a cotton swab. The wound may be slightly tender and may bleed a small amount. A small amount of discharge is normal. Apply a thin layer of sterile petroleum jelly over the wound. Cover the wound with a Telfa (non-stick) dressing or bandage. It is important to keep the wound covered. CONTACT THE OFFICE IF YOU EXPERIENCE: ?? increased redness ?? warmth to touch ?? increased pain ?? drainage with a foul odor ?? rapid swelling of the wound ?? fever or chills Please call our office or . documented in this encounter Discharge Disposition Disposition Code Departure Means Destination Auto Discharge documented in this encounter Progress Notes * Susan Bermudez MD - 04/16/20132 EST Dermatology Outpatient New Patient Visit Note Chief Complaint Patient presents with ??? Nevus changing on back History of Present Illness: Ms. Bradley is a 23 y.o. healthy female who presented to our skin cancer screening approximately 1 month ago for a complete skin exam. At that time, we identified one atypical appearing mole on the left central upper back. This mole was previously biopsied in part by Brittani's PCP in 2010 because it had been increasing in size disproportionately to her growth. That biopsy demonstrated a compound melanocytic nevus. It has since partially repigmented at the biopsy site. Ms. Bradley has no other lesions of concern today. She otherwise denies any new, changing, bleeding, tender, or non-healing skin lesions today. She has a family history of melanoma in her father. She tries to minimize sunexposure and use sunscreen and sun protective clothing regularly. For full Medical, Surgical, Family, and Social histories, please see the History section of this encounter in the electronic chart which I have personally reviewed. For Review of Systems, Medications and Allergies, please see those sections of this encounter in the electronic chart which I have also reviewed. She currently has no medications in their medication list. She is allergic to penicillins. Objective: Physical Exam: Brittani is a healthy and well developed, well-nourished female. She is in no apparent distress. She is alert and oriented to person, place and time. She has Finn type II skin. Cutaneous waist-up examination with bra on including the hair, scalp, face, eyelids, lips, neck, chest, back abdomen,upper extremities, hands, digits and nails. was performed.The examination was normal with the addition of the following comments: On the left central upper back, there is a 1.0 x 0.9 cm medium brown and pink heterochromatic, asymmetric thin plaque. There are multiple 0.3 - 0.6 cm medium and dark brown evenly pigmented, well-demarcated macules on the trunk and extremities. Assessment: 1. Neoplasm of unspecified nature of skin on the left central upper back: atypical nevus vs melanoma vs congenital nevus with central scarring s/p previous biopsy 2. Multiple benign appearing nevi on the trunk and upper extremities 3. Family history of melanoma (father) Plan: 1. For the neoplasm of unspecified nature of skin on the left central upper back, shave biopsy was performed in clinic today. Please see procedure note below for further information. We will call thepatient with biopsy results within one week. 2. Reassurance regarding the benign nature of the remainder of the skin exam today was provided. All of the patient's questions and concerns were addressed. Sun safety including the use of sunscreen with SPF 30 or greater, broad-brimmed hats, sun protective clothing, and sun avoidance during peak hours was reviewed with the patient. The importance of monthly self skin exams was also discussed with an emphasis on the ugly duckling rule and the ABCDs of melanoma. The patient should call regarding any new lesions of concern. The patient will follow up as needed should any new problems or concerns arise. SHAVE BIOPSY PATIENT INFORMATION: Brittani Bradley : MRN: [id number] SURGEON: MD Romeo rDake MD The indication, risks, benefits and alternatives to this procedure were discussed in detail with the patient and all questions were answered. Informed consent was obtained in writing. PROCEDURE NOTE Specimen A Procedure: Tangential Shave Indication: Diagnostic Biopsy Site: left, central and upper back Anesthesia: 1% lidocaine with epinephrine 1:100,000 local infiltration Prep: Alcohol The lesion was prepped as above and locally anesthetized. The specimen was removed by tangential shave using a Dermablade??. Hemostasis was achieved with pressure and/or aluminum chloride. The wound was cleansed with alcohol and a sterile dressing was applied over Petrolatum ointment. Verbal and written wound care instructions were given.The specimen was submitted to pathology for histological evaluation. Susan Bermudez MD 04/16/2013 21:22 Attestation Statement: I saw and examined the patient with the resident/fellow. I agree with the findings and plan of care documented in the resident's/fellow's note. I was present for the entire procedure. Romeo Graham MD * [place] Álvarez - 04/16/2013 1603 EST Review of Systems Constitutional: Positive for fatigue. Negative for fever and unexpected weight change. HENT: Negative for mouth sores. Eyes: Negative for pain. Respiratory: Negative for cough and shortness of breath. Cardiovascular: Negative for chest pain and palpitations. Gastrointestinal: Negative for nausea, vomiting, abdominal pain, diarrhea, constipation and blood in stool. Genitourinary: Negative for dysuria, frequency and hematuria. Musculoskeletal: Positive for arthralgias. Negative for myalgias, joint swelling and muscle stiffness in the morning. Skin: Negative for rash. Neurological: Negative for numbness and headaches. Endo/Heme/Allergies: Does not bruise/bleed easily. Psychiatric/Behavioral: Negative for sleep disturbance. The patient is not nervous/anxious. [place]ia Álvarez documented in this encounter Plan of Treatment Not on file documented as of this encounter Visit Diagnoses Diagnosis Neoplasm of unspecified nature of bone, soft tissue, and skin- Primary documented in this encounter Care Teams Shop Foreman Relationship Specialty Start Date End Date Nataliia Marley MD [address] [place] [address] PCP - General 09/26/10 12/21/19 documented as of this encounter
--- OUTSIDE RECORDS SUMMARY | 2024-04-04 12:59 | XMS_ITS | Encounter Summary ---
Author Organization [facility] Address [address] [place] [address] Care Team Providers Care Information Assurance Analyst Name Role Phone Nataliia Marley MD Primary Care Provider [phone] Reason for Visit * Reason Comments Eye Problem bump on upper left e yelid, since november * Consult (Routine) - Closed Specialty Diagnoses / Procedures [facility]erred To Contact Marcy Bergman MD [address] [place] [phone] Meaghan Koroma MD [address] [place] [phone] Referral ID Status Reason Start Date Expiration Date Visits Re quested Visits Authorized [id number] Closed 1 1 Encounter Details Date Type Department Care Team (Late st Contact Info) Description 02/21/2016 9:30 EDT Office Visit [facility] Ophthalmology - [address] [phone] Meaghan Koroma MD [address] [place] [phone] Social History Tobacco Use Types Packs/Day Years Used Date Smoking Tobacco: Never Alcohol Use Standard Drinks/Week Comments Not Asked 0 (1 standard drink = 0.6 oz pur e alcohol) Sex and Gender Information Value Date Recorded Sex Assigned at Not on file Gender Identity Female 07/19/2019 21:26 EST Sexual Orientation Not on file documented as of this encounter Progress Notes * Meaghan Koroma MD - 02/21/2016 0954 EDT Chief Complaint Patient presents with ??? Eye Problem bump on upper left eyelid, since november The patient is a 26 y.o. female presents for evaluation of left upper eyelid bump. Pt notes bump appeared in November and has not changed in size. No discharge. No eye pain. Tried homeopathy eye drops without relief. Pt has tried warm tea bags and warm compresses without relief. Was seen by [facility] and referred here. History of external styes that went away. Pt feels that it is starting to affect vision in the left eye slightly. ROS Constitutional: ENT/Mouth NL Cardiovascular: NL Respiratory: (asthma) Gastrointestinal: NL Genitourinary: NL Musculoskeletal: NL Integumentary: NL Neurologic: NL Psychiatric: NL Endocrine: NL Hematologic: NL Immunologic: (dust, rag weed) Medical Center Manager: NL Exposures: None Other: Attestation: Allergies include: Penicillins and Unable to assess There is no problem list on file for this patient. No outpatient prescriptions have been marked as taking for the 02/21/16 encounter (Office Visit) with Meaghan Koroma MD. Base Eye Exam Visual Acuity (Snellen - Linear) Right Left Dist sc 20/20 20/25 -2 Tonometry (9:49) Right Left Pressure 17 17 Pupils Dark Light APD Right 6 4 None Left 6 4 None Visual Skinner (Counting fingers) Right Left Result Full Full Extraocular Movement Right Left Result Full Full Neuro/Psych Oriented x3: Yes Mood/Affect: Normal Additional Tests Color Right Left Ishihara Slit Lamp and Fundus Exam Slit Lamp Exam Right Left Lids/Lashes Normal Chalazion Upper lid Conjunctiva/Sclera White and quiet White and quiet Cornea Clear Clear Anterior Chamber Deep and quiet Deep and quiet Iris normal normal Lens Clear Clear Vitreous Clear Clear Fundus Exam Right Left Disc Normal Normal C/D Ratio 0.2 0.2 Macula Normal Normal IMPRESSION & PLAN: Encounter Diagnosis Name Primary? Chalazion left upper eyelid Yes 1. Chalazion left upper eyelid Discussed treatment options, including frequent warm compresses with abx-steroid drops vs incision and drainage vs steroid injection. Chalazion has failed to resolve with conservative measures. Risks, benefits and alternatives to chalazion drainage were discussed with the patient. Risks include pain, bleeding, infection, recurrence, need for additional procedures, damage to surrounding structures. Patient wishes to proceed. I have reviewed the patient's past medical, family, social and surgical history. I have also reviewed the patient's medications, allergies, and problem list. I performed my own HPI and have reviewed the [facility]'s ROS as well. I personally completed this exam myself. Meaghan Koroma MD The patient was instructed to call our office or go to emergency room if worse vision, worse symptoms, or new/other concerns arise. documented in this encounter Plan of Treatment Not on file documented as of this encounter Visit Diagnoses Diagnosis Chalazion left upper eyelid- Primary documented in this encounter Eye Exam Visual Acuity (Snellen - Linear) Right eye Left eye Dist sc 20/20 20/25 -2 Tonometry (9:49) Right eye Left eye Pressure 17 17 Pupils Dark Light APD Right eye 6 4 None Left eye 6 4 None Visual Skinner (Counting fingers) Right eye Left eye Full Full Extraocular Movement Right eye Left eye Full Full Neuro/Psych Oriented x3: Yes Mood/Affect: Normal Color Right eye Left eye Ishihara Slit Lamp Exam Right eye Left eye Lids/Lashes Normal Chalazion Upper lid Conjunctiva/Sclera White and quiet White and sandra et Cornea Clear Clear Anterior Chamber Deep and quiet Deep and quiet Iris normal normal Lens Clear Clear Vitreous Clear Clear Fundus Exam Right eye Left eye Disc Normal Normal C/D Ratio 0.2 0.2 Macula Normal Normal Care Teams Information Assurance Analyst Relationship Specialty Start Date End Date Nataliia Marley MD [address] [place] [address] PCP - General 09/26/10 12/21/19 documented as of this encounter
--- OUTSIDE RECORDS SUMMARY | 2024-04-04 12:59 | XMS_ITS | Encounter Summary ---
Author Organization [facility] Address [address] [place] [address] Care Team Providers Care Apparel Merchandiser Name Role Phone Nataliia Marley MD Primary Care Provider [phone] Reason for Visit * Reason Comments Follow-up Planning left upper eyelid chalazion incision and drainage. Encounter Details Date Type Department Care Team (Late st Contact Info) Description 04/11/2016 14:30 EDT Office Visit [facility] Ophthalmology - [address] [id number] Meaghan Koroma MD [address] [place] [address], [address] [place] [phone] Social History Tobacco Use Types [...] Sign Reading Time Taken Comments Blood Pressure 100/60 04/11/2016 1437 EDT Pulse 63 04/11/2016 1437 EDT Temperature - - Respiratory Rate - - Oxygen Saturation 100% 04/11/2016 1437 EDT Inhaled Oxygen Concentration - - Weight - - Height - - Body Mass Index - - documented in this encounter Ordered Prescriptions Prescription Sig Dispensed Refills Start Date End Da te imfrstdc-[id number] hasone (MAXITROL) ophthalmic ointmentIndications:Chalaz ion left upper eyelid Apply to left upper eyelid twice daily to 1 week 1 Tube 04/11/2016 07/19/2019 documented in this encounter Procedure Notes * Meaghan Koroma MD - 04/11/2016 1430 EDT Title of procedure: Chalazion excision, left upper eyelid Pre-operative diagnosis: chalazion, left upper eyelid Post-operative diagnosis: chalazion, left upper eyelid Anesthesia: 2% lidocaine with 1:100,000 epinephrine prep: betadine swab Informed consent was obtained. Patient and procedure site were identified. Local was injected. Sitewas prepped with betadine. Chalazion clamp was placed and the eyelid was everted. A number 11 bladewas used to make an incision perpendicular to, but not involving, the eyelid margin. The contents of the chalazion were removed with a curette and cotton tipped applicators. Hemostasis was observed. M axitrol ointment was instilled in the eye. documented in this encounter Plan of Treatment Not on file documented as of this encounter Visit Diagnoses Diagnosis Chalazion left upper eyelid- Primary documented in this encounter Care Teams Apparel Merchandiser Relationship Specialty Start Date End Date Nataliia Marley MD [address] [place] [address] PCP - General 09/26/10 12/21/19 documented as of this encounter
--- OUTSIDE RECORDS SUMMARY | 2024-04-04 12:59 | XMS_ITS | Clinical Summary ---
Author Organization [facility] [place] [address] Care Team Providers Care Boiler Installer Name Role Phone None Primary Care Provider Unavailabl e Allergies Active Allergy Reactions Criticality Noted Date Comments Penicillins 04/02/2017 Medications No known medications Active Problems No known active problems Social History Tobacco Use Types Packs/Day Years Used Date Smoking Tobacco: Never Assessed Sex and Gender Information Value Date Recorded Sex Assigned at Not on file Gender Identity Not on file Sexual Orientation Not on file Last Filed Vital Signs Vital Sign Reading Time Taken Comments Blood Pressure 99/72 04/02/2017 9:42 AM EDT Pulse 57 04/02/2017 9:42 AM EDT Temperature 36.4 ??C (97.5 ??F) 04/02/2017 8:18 AM ED T Respiratory Rate 16 04/02/2017 9:42 AM EDT Oxygen Saturation 100% 04/02/2017 9:42 AM EDT Inhaled Oxygen Concentration - - Weight 63.5 kg (140 lb) 04/02/2017 8:18 AM EDT Height - - Body Mass Index - - Plan of Treatment Health Maintenance Due Date Last Done Comments HIV screen 01/17/2010 Hepatitis C Screening 01/17/2010 Hepatitis B vaccine (0-59 yrs) (1) 01/17/2011 Tetanus/Diphtheria/Pertussis Vaccines (1 - Tdap) 01/17 HPV test 01/17/2022 PAP Smear 01/17/2022 Covid-19 Vaccine (1 - 2022-24 season) 2024 Influenza (Flu) vaccine (1 o f 1 - Influenza standard series) 02/10/2024 Care Teams Boiler Installer Relationship Specialty Start Date End Date None None PCP - General 06/11/16
--- OUTSIDE RECORDS SUMMARY | 2024-04-04 12:59 | XMS_ITS | Encounter Summary ---
Author Organization [facility] Address [address] [place] [address] Care Team Providers Care Dietary Service Aide Name Role Phone Nataliia Marley MD Primary Care Provider Yocasta Cronin Primary Care Provider [phone] Reason for Referral * Cardiology (Routine) - Closed Specialty Diagnoses / Procedures [facility] Referred To Contact Diagnoses Patient in clinical research study Procedures EKG 12-LEAD Karen Pineda MD [address] [place] [phone] Referral ID Status Reason Start Date Expiration Date Visits Re quested Visits Authorized [id number] Closed 07/28/2016 1 1 Encounter Details Date Type Department Care Team (Late st Contact Info) Description 07/28/2016 Orders Only [facility] Cardiology - [address] [phone] Karen Pineda MD [address] [place] [phone] Patient in clinical research study (Primary Dx) Social History Tobacco Use Types [...] Associated Diagnosis Comments EKG 12-LEAD Routine 07/31/2016 8:16 EST Patient in clinical research study documented in this encounter Results * EKG 12-LEAD (07/31/2016 8:16 EST) 07/31/2016 8:16 EST Narrative [facility] EKG - 07/31/2016 8:44 EST ? [facility] ? Test Date: ?2016-07-31 Pat Name: ? LUIZ MIRNA ? Department: ?? CRC ? Room: ? Gender: ? F ?Optometric Coordinator: ?? [id number] : ?1990 ? Requested By: GREGG Samuels Order Number: [id number] ? Reading MD: ?? SANJEEV AMADOR MD ? Measurements Intervals ?[place] ? Rate: ? 51 ? P: ?57 IA: ? 178 ?QRS: ?102 QRSD: ? 96 ? T: ?64 QT: ? 408 ? QTc: ?378 ? Interpretive Statements SINUS BRADYCARDIA RIGHT AXIS DEVIATION SEPTAL QWAVES, POSSIBLY RELATED TO MEDIAL LEAD PLACEMENT No previous ECG available for comparison I reviewed the tracing and have either agreed or edited the findings in this report. Electronically Signed On 07-31-16 08:44:33 EST by SANJEEV AMADOR MD. Procedure Note Sanjeev Amador MD - 07/31/2016 [facility] Test Date: 2016-07-31 Pat Name: LUIZ BRADLEY Department: [facility] Room: Gender: F Optometric Coordinator: [id number] : 1990 Requested By: GREGG Samuels Order Number: [id number] Reading MD: SANJEEV AMADOR MD Measurements Intervals [place] Rate: 51 P: 57 IA: 178 QRS: 102 QRSD: 96 T: 64 QT: 408 QTc: 378 Interpretive Statements SINUS BRADYCARDIA RIGHT AXIS DEVIATION SEPTAL QWAVES, POSSIBLY RELATED TO MEDIAL LEAD PLACEMENT No previous ECG available for comparison I reviewed the tracing and have either agreed or edited the findings inthis report. Electronically Signed On 07-31-16 08:44:33 EST by SANJEEV GARCIA. Karen Pineda MD CARDIAC ECG ORDERA BLES [facility] EKG documented in this encounter Visit Diagnoses Diagnosis Patient in clinical research study- Primary documented in this encounter Additional Health Concerns Infection Onset Date Last Indicated Resolved Time R/O COVID-19 12/22/2019 12/23/2019 12/28/2019 22:1 7 EDT documented as of this encounter Care Teams Dietary Service Aide Relationship Specialty Start Date End Date Nataliia Marley MD [address] [place] [phone] PCP - General 09/26/10 12/21/19 Yocasta Cronin [address] [place] [address] PCP - General Internal Medicine - Primary Care 12/22/19 documented as of this encounter
--- OUTSIDE RECORDS SUMMARY | 2024-04-04 12:59 | XMS_ITS | Encounter Summary ---
Author Organization [facility] Address [address] [place] [address] Care Team Providers Care Photographic Spotter Name Role Phone Nataliia Marley MD Primary Care Provider [phone] Reason for Visit * Reason Comments Skin Exam Annual FBSE Skin Lesion Lesion under right e ye, present about 2 weeks Encounter Details Date Type Department Care Team (Late st Contact Info) Description 04/29/2014 15:40 EST Office Visit [facility] Dermatology 5th Floor [address] [id number] Romeo Graham MD [address] [place] [address], [address] [place] [address] Susan Bermudez MD Wart (Primary Dx); Folliculitis Social History Tobacco Use Types Packs/Day Years Used Date Smoking Tobacco: Never Alcohol Use Standard Drinks/Week Comments Not Asked 0 (1 standard drink = 0.6 oz pur e alcohol) Sex and Gender Information Value Date Recorded Sex Assigned at Not on file Gender Identity Female 07/19/2019 21:26 EST Sexual Orientation Not on file documented as of this encounter Discharge Diagnoses Diagnosis 078.10 VIRAL WARTS NOS[ICD-9-CM] 704.8 HAIR DISEASES NEC[ICD-9-CM] documented in this encounter Patient Instructions * Patient Instructions* Susan Bermudez MD - 04/29/2014 16:25 EST DERMATOLOGY WOUND CARE INSTRUCTIONS FOR CRYOSURGERY The area you had treated with liquid nitrogen therapy may swell, blister and throb for 24 hours. You may see blood in the blisters. If the blisters open, apply Vaseline/petroleum jelly until the areahas healed. We do not recommend the use of triple antibiotic ointment or other ointments as they can cause allergic reactions. Any scabs that form should fall off within 14-21 days. CONTACT THE OFFICE IF YOU EXPERIENCE: ?? increasing redness ?? warmth to touch ?? increasing pain ?? drainage with a foul odor ?? rapid swelling of the wound ?? fever or chills Please call our office or . documented in this encounter Ordered Prescriptions Prescription Sig Dispensed Refills Start Date End Da te clindamycin (CLEOCIN T) 1 % lotion use thin film on affected area once daily. 60 mL 11 04/29/2014 07/19/2019 documented in this encounter Progress Notes * Susan Bermudez MD - 04/29/20149 EST Dermatology Outpatient Follow-up Visit Note Chief Complaint Patient presents with ??? Skin Exam Annual FBSE ??? Skin Lesion Lesion under right eye, present about 2 weeks Dermatologic History: 1. Recurrent/persistent atypical nevus, left central upper back Last Dermatology office visit: 04/17/13 History of Present Illness: Ms. Bradley is a 24 y.o. female who presents for complete skin exam today. She has a new lesion under the right eye. It appeared 1-2 months ago. It is asymptomatic, but she is interested in removal if possible. Brittani also reports an asymptomatic rash on the bilateral thighs. She thought itwas related to shaving in this region, but it has not improved despite a break from shaving. She otherwise denies any new, changing, bleeding, tender, or non-healing skin lesions today. For full Medical, Surgical, Family, and Social histories, please see the History section of this encounter in the electronic chart which I have personally reviewed. For Review of Systems, Medications and Allergies, please see those sections of this encounter in the electronic chart which I have also reviewed. She has a current medication list which includes the following prescription(s): clindamycin and desog-e.estradiol/e.estradiol. She is allergic to penicillins and unable to assess. Objective: Physical Exam: Brittani is a healthy and well developed, well-nourished female. She is in no apparent distress. She is alert and oriented to person, place and time. She has Finn type II skin. Cutaneous full body examination including the hair, scalp, face, eyelids, lips, neck, chest, back, abdomen, all four extremities, hands, feet, digits and nails was performed. The examination was normal with the addition of the following comments: -On the right infraorbital cheek, there is a 1 mm skin-colored filiform verrucous papule. -On the left central upper back, there is a well-healed scar with a light brown macule in the center. -On the trunk and extremities, there are multiple 0.3 - 0.5 cm medium brown, evenly pigmented, well-demarcated macules. -On the bilateral anterior thighs, there are multiple 0.1 cm folliculocentric erythematous papules and pustules on an erythematous base. -There are no lesions concerning for malignancy on the skin exam today. Assessment: 1. Filiform wart, right infraorbital cheek 2. Mild folliculitis of the bilateral anterior thighs 3. Multiple benign-appearing nevi on the trunk and extremities Plan: 1. The wart on the right cheek was treated with liquid nitrogen cryosurgery today. A pair of bishops were dipped in liquid nitrogen and used to squeeze the base of the wart until freezing change was noted 4 times. The patient tolerated the procedure well. 2. A prescription for clindamycin 1% lotion (60 ml with 11 refills) to apply daily on the affected areas of the legs. 3. Reassurance regarding the benign nature of the skin exam today was provided. All of the patient's questions and concerns were addressed. The nature of sun- induced photo-aging and skin cancers is discussed. Sun avoidance, protective clothing, and the use of 30-SPF sunscreens is advised. Observe closely for skin damage/changes, and call if such occurs. The patient will follow up as needed should any new problems or concerns arise. Susan Bermudez MD 04/29/2014 21:40 Attestation Statement: I saw and examined the patient with the resident/fellow. I agree with the findings and plan of care documented in the resident's/fellow's note. I was present for the entire procedure. Romeo Graham MD * Adrian Yocasta - 04/29/2014 1606 EST Review of Systems Constitutional: Negative for fever, fatigue and unexpected weight change. HENT: Negative for [...] sleep disturbance. The patient is not nervous/anxious. All other systems reviewed and are negative. Yocasta Adrian 04/29/2014 16:06 Susan Bermudez MD 04/29/2014 21:39 documented in this encounter Plan of Treatment Not on file documented as of this encounter Visit Diagnoses Diagnosis Wart- Primary Viral warts, unspecified Folliculitis Other specified disease of hair and hair follicles documented in this encounter Historical Medications * This list may reflect changes made after this encounter. Medication Sig Dispensed Refills Start Date End Date desog-e.estradiol/e.estr adiol (BRUCE, Silas,) 0.15-0.02 mgx21 /0.01 mg x 5 per tablet Take 1 Tab by mouth daily. Reported on 10/20/2016 07/19/2019 added in this encounter Care Teams Photographic Spotter Relationship Specialty Start Date End Date Nataliia Marley MD [address] [place] [phone] PCP - General 09/26/10 12/21/19 documented as of this encounter
--- OUTSIDE RECORDS SUMMARY | 2024-04-04 12:59 | XMS_ITS | Encounter Summary ---
Author Organization [facility] Address [address] [place] [address] Care Team Providers Care Circus Performer Name Role Phone Unavailable Primary Care Provider Unavailabl e Encounter Details Date Type Department Care Team (Late st Contact Info) Description 02/25/2008 Before PRISM Converted Visit (Maple) [facility] - Maple conversion [address] [place] [address] Svitlana Sena MD [address] [place] [phone] Social History Tobacco Use Types Packs/Day Years Used Date Smoking Tobacco: Never Assessed Sex and Gender Information Value Date Recorded Sex Assigned at Not on file Gender Identity Female 07/19/2019 21:26 EST Sexual Orientation Not on file documented as of this encounter Plan of Treatment Not on file documented as of this encounter Visit Diagnoses * Evaluation - Svitlana Sena MD - 01/02/2009 0535 EDT DIVISION OF DERMATOLOGY - [facility] NEW PATIENT EVALUATION - 02/25/2008 CHIEF COMPLAINT Check moles. Initial visit for this 18-year-old girl, here today requesting a mole check. She is concerned in particular about a mole on her upper back. She does not know how long it has been there and it has notobviously changed, but it is a little bit bigger than her other lesions. She believes her father has had melanoma, but she does not know the details. She is out in the sun a lot and tans easily. She s pent some time in [place] this summer and got quite a burn on her face. She does try to wear sunscreen. She does not use tanning beds. Her health is otherwise good. She has environmental allergies for which she uses medications as needed. Otherwise, no significant medical problems. She is not . PRESENT MEDICATIONS Albuterol, Flovent and Serevent as needed. ALLERGIES None known. Please see Dermatology sheet and chart for complete review of systems, surgical, social and family history. OBJECTIVE A well-appearing, pleasant woman with skin of medium complexion. Skin is tanned in sun-exposed areas. Skin exam of the face, neck, chest, back, abdomen, buttocks, upper and lower extremities was performed. There are a few scattered pigmented papules and macules on the trunk and extremities, most ofwhich are quite homogenous and measure less than 4 mm. On the upper left back there is a 5-mm, evenly pigmented, reddish-brown, dome-shaped papule with homogenous features. There are scattered freckles with some hypopigmentation on the medial cheeks and chin. ASSESSMENT 1. Multiple nevi, none concerning for malignancy. Lesion on back may be a congenital nevus, but hasbenign features. 2. Possible family history of melanoma. PLAN I reassured patient about benign appearance of her lesions today. We discussed the ABCDEs of melanoma and I recommend that she check her skin intermittently. Discussed the importance of aggressive sun protection for her overall skin health. Follow up p.r.n. Signed by Svitlana Sena MD 03/04/2008 18:08 Svitlana Sena MD - MD Jaida - DAI Job ID: [id number] Doc ID: [id number] cc: KENYON Bolivar MD documented in this encounter
--- OUTSIDE RECORDS SUMMARY | 2024-04-04 12:59 | XMS_ITS | Encounter Summary ---
Author Organization [facility] Address [address] [place] [address] Care Team Providers Care Field Enumerator Name Role Phone Nataliia Marley MD Primary Care Provider [phone] Encounter Details Date Type Department Care Team (Late st Contact Info) Description 11/07/2016 Phlebotomy Only [address] [address] Nurse Transplant, Outpatient Social History Tobacco Use Types Packs/Day [...] on filedocumented in this encounter Care Teams Field Enumerator Relationship Specialty Start Date End Date Nataliia Marley MD [address] [place] [phone] PCP - General 09/26/10 12/21/19 documented as of this encounter
--- OUTSIDE RECORDS SUMMARY | 2024-04-04 12:59 | XMS_ITS | Encounter Summary ---
Author Organization [facility] Address [address] [place] [address] Care Team Providers Care Pigs Feet Finisher Name Role Phone Nataliia Marley MD Primary Care Provider [phone] Encounter Details Date Type Department Care Team (Late st Contact Info) Description 04/16/2013 Results Only [facility] Dermatology 3rd Floor [address] [phone] Romeo Dumont MD [address] [facility], [address] [place] [phone] Social History Tobacco Use Types Packs/Day Years [...] Date/Time Associated Diagnosis Comments SURGICAL PATHOLOGY Routine 04/16/2013 11 :55 EST documented in this encounter Results * SURGICAL PATHOLOGY (04/16/2013 11:55 EST) Pathology Report: SURGICAL PATHOLOGY REPORT Reports generated via electronic interface contain original data; however they are lacking the format of the original report. Caution should be taken when reading/interpreti ng unformatted reports. Name: ? KISHORE, LUIZ R ? Accession #: ? [id number] ? : ? 1990 (Age: 23) ??F ? Collect Date: ? 04/16/2013 ? Location: ? DERM ? Receive Date: ? 04/17/2013 ? Provider: ROMEO DUMONT MD Copy to: SAMUEL PEDERSEN MD ? Final Pathologic Diagnosis: SKIN OF BACK, LEFT CENTRAL UPPER, SHAVE BIOPSY: - Melanocytic nevus, compound type, with unusual architectural features and cytologic atypia with associated dermal scar and features of recurrent/persiste nt nevus. - Nevus extends to peripheral edge and base of biopsy specimen. Comment: Present is an atypical melanocytic nevus with features of recurrent/persiste nt nevus. ??The patient's prior material ([id number]) has been reviewed in conjunction with the current specimen. (Dr. Vo)/[facility] Microscopic Description: Sections consist of a shave biopsy of skin. ??There is central scar formation with effacement of the rete ridges. ??Within the area of repair and extending beyond is a compound melanocytic proliferation. ??The proliferation is in greatest density adjacent to the scar. ??The junctional melanocytes are arranged as nests as well as individual cells. ??Nests show variation in size, shape, and spacing. ??Nests bridge rete ridges. ??Individual cell growth is present and most predominant within the area overlying the scar. ??Within this region, the individual melanocytes are crowded along the dermal-epidermal junction but do not show evidence of well-developed confluence or upward migration. ??The individual melanocytes are enlarged and slightly epithelioid in morphology with round-oval nuclei and slight irregular contours. Similar appearing melanocytes are present within the dermis and show maturation with descent. ??Within the area of repair are scattered nests and small cords as well as individual cells. ??(Dr. Vo)/[facility] Document reviewed and electronically signed by: GUIDO VO MD Report ??Date: 04/18/2013 12:27 By the signature above, the attending physician certifies that he/she has personally conducted a gross and/or microscopic examination of the described specimens and rendered or confirmed the above diagnosis. Specimen(s) Received: Left central upper back Clinical History: 1.0 x 0.9 cm heterochromatic brown and pink thin plaque, previously partially biopsied as a compound melanocytic nevus; atypical nevus vs. malignant melanoma vs. congenital nevus; clinical diagnosis code: 239.2 Gross Description: ? Received in formalin labelled with proper patient identification (initials K, S) and L central upper back is a shave biopsy of trevizo-white hairbearing skin (1.2 x 1.2 cm). There is a central ovoid mcclain and brown cobblestoned hairbearing nodule that measures 1.0 x 0.9 x 0.1 cm. ??Serially sectioned and entirely submitted in 1 and 2. Ann-Marie Vikki 04/17/2013 12:59 PM End of Report [facility] 04/16/2013 11:5 5 EST 04/17/2013 11:55 EST Romeo Dumont MD PATHOLOGY ORDERABLES Performing Organization Address City/State/[facility] Co de Phone Number [facility] [address] [place] [address] documented in this encounter Visit Diagnoses Not on filedocumented in this encounter Care Teams Pigs Feet Finisher Relationship Specialty Start Date End Date Nataliia Marley MD [address] [place] [phone] PCP - General 09/26/10 12/21/19 documented as of this encounter
--- OUTSIDE RECORDS SUMMARY | 2024-04-04 12:59 | XMS_ITS | Encounter Summary ---
Author Organization [facility] Address [address] [place] [address] Care Team Providers Care Machine Repair Person Name Role Phone Nataliia Marley MD Primary Care Provider [phone] Encounter Details Date Type Department Care Team (Late st Contact Info) Description 09/06/2015 Abstract [facility] Sports Medicine Program - [address] [place], [place] [phone] Alin Eller MD [address] [facility] [address] [place] [address] Social History Tobacco Use Types Packs/Day Years [...] on filedocumented in this encounter Care Teams Machine Repair Person Relationship Specialty Start Date End Date Nataliia Marley MD [address] [place] [phone] PCP - General 09/26/10 12/21/19 documented as of this encounter
--- OUTSIDE RECORDS SUMMARY | 2024-04-04 12:59 | XMS_ITS | Encounter Summary ---
Author Organization [facility] Address [address] [place] [address] Care Team Providers Care Community Outreach Advocate Name Role Phone Nataliia Marley MD Primary Care Provider [phone] Reason for Visit * Reason Comments Otalgia Pt with bilateral ot algia. Recent URI sx. A&O. Respirations unlabored. Skin warm &D ry. NAD. Encounter Details Date Type Department Care Team (Late st Contact Info) Description 07/19/2019 21:19 EST - 07/19/2019 22:12 EST Emergency [facility] Emergency Department - [place] [address] [place] [phone] Dada Marley PA-C [address] [place] [id number] Otalgia of both ears (Primary Dx); Upper respiratory tract infection, unspecified type Discharge Disposition: Home or Self Care Social [...] Reading Time Taken Comments Blood Pressure 126/83 07/19/20192117 EST Pulse - - Temperature 36.9 ??C (98.4 ??F) 07/19/20192117 EST Respiratory Rate 16 07/19/20192117 EST Oxygen Saturation 100% 07/19/20192117 EST Inhaled Oxygen Concentration - - Weight 63.5 kg (140 lb) 07/19/20192117 EST Height - - Body Mass Index 20.67 09/03/2015 1331 EDT documented in this encounter Discharge Instructions * Discharge Instructions* Dada Marley PA-C - 07/19/2019 22:00 EST Take ibprofen 600mg every 6-8 hours as needed for pain. Take with food. Take zantac twice daily forany stomach upset. Do not take for more than 7 days. Take tylenol 650mg every 6 hours if needed forbreakthrough pain. Do not drink alcohol while taking tylenol Take sudafed (pseudoephedrine) every 6 hours as needed for additional pain control. Do not take formore than 3 days due to risk of rebound fluid accumulation behind your eardrums Start antibiotics if not improved in 48 hours, sooner if any temp over 100.4 Return to ER if any drainage from your ear, vomiting, or severe pain documented in this encounter Medications at Time of Discharge Medication Sig Dispensed Refills Start Date End Date cefpodoxime (VANTIN) 200 mg tablet Take 1 Tab by mouth every 12 hours for 7 days. 14 Tab 07/19/2019 07/26/2019 documented as of this encounter Ordered Prescriptions Prescription Sig Dispensed Refills Start Date End Da te cefpodoxime (VANTIN) 200 mg tablet Take 1 Tab by mouth every 12 hours for 7 days. 14 Tab 07/19/2019 07/26/2019 documented in this encounter Discharge Disposition Disposition Code Departure Means Destination Home or Self Shelter documented in this encounter ED Notes * Raquel Ochoa RN - 07/19/20192211 EST Patient discharged by DREAD Marley * Dada Marley PA-C - 07/19/20192207 EST DOS: 07/19/2019 Chief Complaint Patient presents with ??? Otalgia Pt with bilateral otalgia. Recent URI sx. A&O. Respirations unlabored. Skin warm &D ry. NAD. HPI The patient is a 29 y.o. female who presents today with Otalgia (Pt with bilateral otalgia. Recent URI sx. A&O. Respirations unlabored. Skin warm &D ry. NAD.) HPI 29-year-old female with sore throat and bilateral ear pain for the past few days. She states her ear pain started on the left but has improved. She now has right-sided ear pain that is severe. She denies discharge. No fever or chills. No cough. She has been using xafe-hvy-klpgimv eardrops without relief. She denies any recent ear infection or problems with her ears recently. She does not use Q-tips. Review of Systems Review of Systems See above The patient's past medical, family and social history was reviewed and updated as needed. Allergies Allergen Reactions ??? Penicillins Rash ??? Unable To Assess Pollens Vital Signs Temp: 36.9 ??C (98.4 ??F) Heart Rate: 84 BPM Resp: 16 SpO2: 100 % BP: 126/83 BP Device: BP Machine BP Patient Position: Sitting BP Cuff Location: Left arm O2 Device: None (Room air) Physical Exam BP 126/83 (BP Cuff Location: Left arm, BP Patient Position: Sitting) Temp 36.9 ??C (98.4 ??F) Resp 16 Wt 63.5 kg (140 lb) SpO2 100% BMI 20.67 kg/m?? General appearance: alert, appears comfortable. HEENT: conjunctiva pink, sclera white. Uvula midline. Tonsils with mild erythema. No exudates. Leftear mild fluid, no bulging, mild erythema. Right canal clear. TM with moderate fluid, erythema. No bulging. Neck: supple, mild bilateral anterior lymphadenopathy Cardiac: RRR, no murmurs Pulmonary: lungs clear to auscultation bilaterally. No rales, wheezing or rhonchi. Neuro: no focal deficits Skin: warm, dry, no rash Psych: behavior appropriate. RESULTS EKG orders: None Radiology orders: None Procedures ED COURSE A medical screening exam was performed. Patient presents for bilateral ear pain but primarily her right ear today. She she most likely has an early mild otitis media. I advised supportive care with NSAIDs and Sudafed. Rx for cefpodoxime was given to use in 48 hours if not improved, or sooner if anyfever. Patient notes a prior rash from penicillin about 10 years ago that she describes as a rash in side of her mouth. I explained she has low risk for an allergic reaction Cefpodoxime but not 0 risk. Encouraged her to have her ear rechecked prior to starting antibiotics if she feels antibiotics are needed. Return precautions were discussed Final diagnoses: Otalgia of both ears Upper respiratory tract infection, unspecified type DISPOSITION: Discharged The patient's pain was managed to an adequate level weighing risk vs. benefit of further medications. Upon departure from the Emergency Department, the patient's pain was 5 on a zero to ten scale. Any further pain treatment will be at the discretion of the provider following up with the patient based on their clinical assessment. Condition at departure from the Emergency Department: Stable PCP: Nataliia Foote was available for supervision. 07/19/2019 22:08 No flowsheet data found. * Raquel Ochoa RN - 07/19/2019 2137 EST DREAD Marley at bedside to assess patient * Sammy Perez RN - 07/19/2019 2118 EST Chief Complaint Patient presents with ??? Otalgia Pt with bilateral otalgia. Recent URI sx. A&O. Respirations unlabored. Skin warm &D ry. NAD. documented in this encounter Plan of Treatment Not on file documented as of this encounter Visit Diagnoses Diagnosis Otalgia of both ears- Primary Otalgia, unspecified Upper respiratory tract infection, unspecified type documented in this encounter Administered Medications Inactive Administered Medications - up to 3 most recent administrations Medication Order MAR Action Action Date Dose Rate Site ibuprofen (MOTRIN) tablet 600 mg 600 mg, oral, NOW X1, 1 dose, On 07/19/19 at 2200, STAT Given 07/19/2019 22:00 EST 600 mg documented in this encounter Discontinued Medications Medication Sig Discontinue Reason Start Date End Da te qkknhnqf-dsyhvreuh-jfmr methasone (MAXITROL) ophthalmic ointmentIndications:Milagros lazion left upper eyelid Apply to left upper eyelid twice daily to 1 week 04/11/2016 07/19/2019 desog-e.estradiol/e.est radiol (BRUCE, 28,) 0.15-0.02 mgx21 /0.01 mg x 5 per tablet Take 1 Tab by mouth daily. Reported on 10/20/2016 07/19/2019 clindamycin (CLEOCIN T) 1 % lotion use thin film on affected area once daily. 04/29/2014 07/19/2019 documented as of this encounter Active and Recently Administered Medications Times are shown in EST. Scheduled Medication Order 07/17/2019 07/18/2019 07/19/2019 ibuprofen (MOTRIN) tablet 600 mg (COMPLETED) 600 mg, oral, NOW X1, 1 dose, On 07/19/19 at 2200, STAT 2200 (Given - Provid er: Raquel Ochoa RN) documented in this encounter Orders Medications Ordered That Clifton ht Not Have Been Administered Count Last Ordered Date First Ordered Date ibuprofen (MOTRIN) tablet 600 mg 1 07/19/19 20 documented in this encounter Care Teams Community Outreach Advocate Relationship Specialty Start Date End Date Nataliia Marley MD [address] [place] [phone] PCP - General 09/26/10 12/21/19 documented as of this encounter
--- OUTSIDE RECORDS SUMMARY | 2024-04-04 12:59 | XMS_ITS | Encounter Summary ---
Author Organization [facility] [place] [address] Care Team Providers Care Die Repair Name Role Phone None Primary Care Provider Unavailabl e Encounter Details Date Type Department Care Team (Late st Contact Info) Description 04/02/2017 8:07 AM EDT - 04/02/2017 10:13 AM EDT [place] [address] Marcelo Oconnell MD [facility] [place] [address] Near syncope Discharge Disposition: Home Social History Tobacco Use Types Packs/Day Years Used Date Smoking Tobacco: Never Assessed Sex and Gender Information Value Date Recorded Sex Assigned at Not on file Gender Identity Not on file Sexual Orientation Not on file documented as [...] Index - - documented in this encounter Discharge Instructions * Discharge Instructions* Ashok Velásquez MD - 04/02/2017 9:34 AM EDT [facility] Lightheadedness or Faintness: Care Instructions Your Care Instructions Lightheadedness is a feeling that you are about to faint or pass out. You do not feel as if you or your surroundings are moving. It is different from vertigo, which is the feeling that you or things around you are spinning or tilting. Lightheadedness usually goes away or gets better when you lie down. If lightheadedness gets worse, it can lead to a fainting spell. It is common to feel lightheaded from time to time. Lightheadedness usually is not caused by a serious problem. It often is caused by a short-lasting drop in blood pressure and blood flow to your head that occurs when you get up too quickly from a seated or lying position. Follow-up care is a bojorquez part of your treatment and safety. Be sure to make and go to all appointments, and call your doctor if you are having problems. It's also a good idea to know your test resultsand keep a list of the medicines you take. How can you care for yourself at home? ?? Lie down for 1 or 2 minutes when you feel lightheaded. After lying down, sit up slowly and remain sitting for 1 to 2 minutes before slowly standing up. ?? Avoid movements, positions, or activities that have made you lightheaded in the past. ?? Get plenty of rest, especially if you have a cold or flu, which can cause lightheadedness. ?? Make sure you drink plenty of fluids, especially if you have a fever or have been sweating. ?? Do not drive or put yourself and others in danger while you feel lightheaded. When should you call for help? Call 911 anytime you think you may need emergency care. For example, call if: ?? You have symptoms of a stroke. These may include: ?? Sudden numbness, tingling, weakness, or loss of movement in your face, arm, or leg, especially on only one side of your body. ?? Sudden vision changes. ?? Sudden trouble speaking. ?? Sudden confusion or trouble understanding simple statements. ?? Sudden problems with walking or balance. ?? A sudden, severe headache that is different from past headaches. ?? You have symptoms of a heart attack. These may include: ?? Chest pain or pressure, or a strange feeling in the chest. ?? Sweating. ?? Shortness of breath. ?? Nausea or vomiting. ?? Pain, pressure, or a strange feeling in the back, neck, jaw, or upper belly or in one or both shoulders or arms. ?? Lightheadedness or sudden weakness. ?? A fast or irregular heartbeat. After you call 911, the programmer operator numerical control may tell you to chew 1 adult-strength or 2 to 4 low-dose aspirin. Wait for an ambulance. Do not try to drive yourself. Watch closely for changes in your health, and be sure to contact your doctor if: ?? Your lightheadedness gets worse or does not get better with home care. Where can you learn more? Visit our health information library at [email or web address]. You can also view health information on [employer], your personal patient account. Log in or sign uptoday. Enter X578 in the search box to learn more about Lightheadedness or Faintness: Care Instructions. Current as of: August 28, 2016 Content Version: 11.3 ?? [id number] [employer]. Care instructions adapted under license by [facility]. If you have questions about a medical condition or this instruction, always ask your healthcare professional. [employer] disclaims any warranty or liability for your use of this information. documented in this encounter ED Notes * Gabi Machado RN - 04/02/2017 9:46 AM EDT Pt verbalized understanding of d/c instructions. Exit via ambulation w/ steady gait back to the OR. * Marcelo Oconnell MD - 04/02/2017 8:51 AM EDT Brief Attending Note: I saw Brittani Bradley in conjunction with Didier. Please see their note for further details. Briefly, 27 y.o. female presents with syncope in the OR today. 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 She immediately woke back to her baseline mental status and feels normal today. She reports a history of having syncope when getting a shot in the past. No history of exertional syncope. Her grandparents had cardiac disease in her 60s and her grandmother had a cardiac surgery at the ageof 20 but no other family history of sudden cardiac . The review of systems is negative other than items noted in the HPI. I reviewed the past medical history, medications, and allergies in Epic. On exam the patient is well-appearing. She is pleasant and conversational. She has no heart murmur and has a normal cardiac exam. Lungs are clear bilaterally. Abdomen is soft. Skin is warm and dry. No focal neurologic deficits. She was drinking water when I went to go see her. UPT negative, EKG without evidence of ischemia, heart block, preexcitation, or brugada. Assessment: 27 y.o. female with vasovagal syncope while standing in the operating room. She does not have any history suggestive structural cardiac disease. She had a normal EKG with no evidence of heart block, preexcitation, ischemia. She does not have a history to suggest a pulmonary embolism. She has a negative urine test and do not suspect direct trait ectopic . She does not have a headache, history to suggest seizure or subarachnoid hemorrhage. Patient is doing well, drinking oral fluids and ready to be discharged home. MD Anish Logan Matthew A, MD 04/02/17 1551 * Ashok Velásquez MD - 04/02/2017 8:28 AM EDT Brittani Bradley is an 27 y.o. female who presents to the ED with: No chief complaint on file. I saw this patient 04/02/2017 at 4:48 PM [facility] Brittani Bradley is a 27 y.o. female who presents to the Emergency Department as a code white. 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 She then sat down but continued to feel unwell, so she was sent to the emergency department. She states that she thinks she has been coming down with a cold but is otherwise been in her normal state of health. She denies emesis, bloody stools, or urinary changes. She denies headache or vision changes. She had one episode of syncopal be when she was young but is otherwise not passedout. She denies family history of sudden . She denies exertional syncope. Review of Systems: Review of Systems 10 point review of systems performed. As per history of present illness. All other systems negative. Patient Vitals for the past 24 hrs: BP Temp Temp src Pulse Resp SpO2 Weight 04/02/17 0942 99/72 - - 57 16 100 % - 04/02/17 0845 99/72 - - - - 100 % - 04/02/17 0830 92/65 - - - - 99 % - 04/02/17 0818 (!) 87/56 36.4 ??C (97.5 ??F) Oral 50 16 95 % 63.5 kg (140 lb) 04/02/17 0815 (!) 87/58 - - - - 99 % - Physical Exam: Physical Exam Constitutional: She is oriented to person, place, and time. She appears well- developed and well-nourished. No distress. HENT: Head: Normocephalic and atraumatic. Eyes: Conjunctivae and EOM are normal. Pupils are equal, round, and reactive to light. Neck: Normal range of motion. Neck supple. Cardiovascular: Normal rate and regular rhythm. Exam reveals no gallop and no friction rub. No murmur heard. Pulmonary/Chest: Effort normal and breath sounds normal. No respiratory distress. She has no wheezes. She has no rales. Abdominal: Soft. Bowel sounds are normal. She exhibits no distension. There is no tenderness. Thereis no rebound and no guarding. Musculoskeletal: Normal range of motion. She exhibits no edema. Neurological: She is alert and oriented to person, place, and time. No cranial nerve deficit. She exhibits normal muscle tone. Coordination normal. Strength 5/5??4, sensation intact ??4, normal gate Skin: Skin is warm and dry. She is not diaphoretic. Psychiatric: She has a normal mood and affect. Her behavior is normal. Nursing note and vitals reviewed. ED Course: - Patient was evaluated and discussed with Dr. 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 The patient states that she became nauseous, lightheaded, and pale. On presentation, the patient was nontoxic-appearing. Blood pressure isslightly soft. She otherwise is well-appearing. EKG is notable for sinus bradycardia but otherwise reassuring without prolonged intervals, WPW, Brugada, arrhythmia, or ischemia. Glucose is normal. Venous a glucose is normal. Urine is negative. On my evaluation, the patient states that sheis feeling much better. She has no focal neurologic deficits. Cardiopulmonary examination is normal. She is tolerating oral intake and states that she feels ready to leave. The patient was given strict return precautions. She was instructed to follow-up with her PCP for reevaluation in the next fewdays. All questions were answered prior to discharge. Return precautions were verbally discussed with the patient and written in discharge instructions, including fevers, shortness of breath, abdominal pain, nausea/vomiting, chest pain, palpitations, orother concerns. The patient expressed understanding that she could come back to the ED at any time and agreed to the follow-up plan. Plan: - Discharge - Follow up with PCP in 2-3 days for reevaluation - Return precautions discussed Ashok Velásquez MD Resident 04/02/17 7964 Associated attestation - Marcelo Oconnell MD - 04/04/2017 2:34 PM EDT ED ATTENDING ATTESTATION NOTE The patient was seen in conjunction with the resident physician. I have independently performed thekey portions of the history and physical exam. I have personally reviewed nursing notes, vital signs, and diagnostic studies including labs, imaging studies and EKGs. I have discussed the details of the case with the resident and agree with the assessment and plan as described in the resident's note. documented in this encounter Miscellaneous Notes * ED Triage - Gabi Machado RN - 04/02/2017 8:20 AM EDT Pt rec'd via w/c to ED11 s/p Code White. 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 BG=96. Pt bradycardic and hypotensive (I run low on my bp). A&ox3; pale/w/d. Bed in low position and sr up x2. documented in this encounter Plan of Treatment Not on file documented as of this encounter Procedures Procedure Name Priority Date/Time Associated Diagnosis Comments EKG 12-LEAD STAT 04/02/2017 8:53 AM EDT POCT GLUCOSE Routine 04/02/2017 8:15 AM EDT POCT URINE STAT 04/02/2017 documented in this encounter Results * EKG 12 Lead (04/02/2017 8:53 AM EDT) Ventricular rate 46 BPM MUSE SYSTEM Atrial Rate 46 BPM MUSE SYSTEM P-R Interval 154 ms MUSE SYSTEM QRS Duration 92 ms MUSE SYSTEM Q-T Interval 428 ms MUSE SYSTEM QTC Calculated (Bezet) 374 ms MUSE SYSTEM Calculated P [place] 54 degrees MUSE SYSTEM Calculated R [place] 97 degrees MUSE SYSTEM Calculated T [place] 69 degrees MUSE SYSTEM INTERPRETATION Marked sinus bradycardia Rightward axis Septal infarct , age undetermined Abnormal ECG No previous ECGs available Confirmed by Tico Arvizu MD ([id number]) on 04/02/2017 3:41:01 PM MUSE SYSTEM 04/02/2017 8:53 AM EDT 04/02/2017 3:41 PM EDT Marcelo Oconnell MD ECG ORDERABLES MUSE SYSTEM * POCT Glucose (04/02/2017 8:15 AM EDT) Glucose, POC 96 65 - 199 mg/dL [facility] Comment: Supplemental ranges: <140 mg/dL before meals <180 mg/dL all other times of the day Blood specimen (specimen) 04/02/2017 8:15 AM EDT 04/02/2017 8:15 AM EDT Emergency Dept POINT OF CARE TEST ORDERABLES [facility] [place] [address] * POCT urine (04/02/2017) POC Urine HCG Negative Negative - Negative POC Control Internal Controls Acceptable 04/02/2017 Marcelo Oconnell MD POINT OF CARE TEST ORDERABLES documented in this encounter Visit Diagnoses Diagnosis Near syncope Syncope and collapse documented in this encounter Active and Recently Administered Medications Care Teams Die Repair Relationship Specialty Start Date End Date None None PCP - General 06/11/16 documented as of this encounter
--- OUTSIDE RECORDS SUMMARY | 2024-04-04 12:59 | XMS_ITS | Encounter Summary ---
Author Organization [facility] [place] [address] Care Team Providers Care Insurance Licensing Supervisor Name Role Phone None Primary Care Provider Unavailabl e Encounter Details Date Type Department Care Team (Latest Contact Info) Description 04/29/2020 11:29 PM EST - 04/29/2020 11:59 PM EST Hospital [place] [address] Discharge Disposition: Home Social History Tobacco Use [...] Name Priority Date/Time Associated Diagnosis Comments COVID-19 PCR Routine 04/29/2020 2:00 PM EST documented in this encounter Results * COVID-19 PCR (04/29/2020 2:00 PM EST) SARS-CoV-2 RNA Not Detected Not Detected [facility] Comment: This result should be interpreted in combination with the clinical observations, patient history and epidemiological information in making a final diagnosis. For testing of asymptomatic individuals, assay performance characteristics and clinical utility have not been evaluated. Testing for SARS-CoV-2 (Severe acute respiratory syndrome coronavirus 2, formerly known as 2019 novel coronavirus or 2019-nCoV) to aid in the diagnosis of COVID-19 is performed using the [employer] m SARS-CoV-2 Assay as authorized by the FDA Emergency Use Authorization (EUA). This EUA assay is intended for In-vitro Diagnostic (IVD) use with respiratory specimens such as nasopharyngeal swabs collected from individuals during the acute phase of infection. This assay is performed based on the instructions for use provided by [employer] and additional guidance provided by CDC and FDA. Testing is performed in the [facility] within the Department of Pathology and Laboratory Medicine at [facility], certified under the Clinical Laboratory Improvement Amendments of 1988 (CLIA), 42 U.S.C. 263a, to perform high complexity tests. Assay performance has been verified according to clinical laboratory regulatory requirements for use with specimens collected from individuals suspected of COVID-19. Test results are provided above. A result of ? Not Detected? indicates that the viral RNA target is not present above the limit of detection, but does not preclude SARS-CoV-2 infection. False negative results may occur if a specimen is improperly collected, transported or handled; if amplification inhibitors are present; or if inadequate numbers of viral particles are present in the specimen. When a diagnostic test is negative, the possibility of a false negative result should be considered in the context of a patient? s recent exposures and the presence of clinical signs and symptoms consistent with COVID-19. A result of ? Detected? indicates that RNA from SARS-CoV-2 was detected and the patient is infected. As required or requested by public health authorities, positive specimens may be sent for additional testing. Positive and negative predictive values for this test are highly dependent on disease prevalence. A result of ? Invalid? indicates that neither the viral RNA targets nor the internal control target was detected. An invalid result suggests the presence of inhibitors. Recollection and re-testing is recommended in the case of an invalid result. CDC COVID-19 criteria for testing on human specimens and clinical management guidance information are available at the CDC Coronavirus Disease 2019 (COVID-19) webpage under ? Information for Healthcare Professionals? (https://www.cdc.gov/coronavirus/2019-ncov/hcp/index.html) Additional information about this and other EUA tests can be found in provider and patient fact sheets at the following FDA website: https://www.fda.gov/medical-devices/sdbtsbqhjen-wcpkbog-9968-erbsq-42-hintugqfc- use-a kurgkmxojswgf-rbhdqxw-wvhzrlj/wmscz-msnmytejxef-arih SARS-CoV-2 RNA Source [employer] Swab [facility] Nasopharyngeal swab (specimen) Other / Unknown 04/29/2020 2:00 PM EST 05/01/2020 5:34 PM EST Narrative Resulting Agency Comment Spec In Lab Yocasta Cronin MD MOLECULAR ORDERABLES Performing Organization Address City/State/[facility] Co de Phone Number [facility] [place] [address] documented in this encounter Visit Diagnoses Not on filedocumented in this encounter Care Teams Insurance Licensing Supervisor Relationship Specialty Start Date End Date None None PCP - General 06/11/16 documented as of this encounter
--- OUTSIDE RECORDS SUMMARY | 2024-04-04 12:59 | XMS_ITS | Encounter Summary ---
Author Organization [facility] Address [address] [place] [address] Care Team Providers Care Liquid Sugar Melter Name Role Phone Nataliia Marley MD Primary Care Provider [phone] Encounter Details Date Type Department Care Team (Late st Contact Info) Description 01/25/2015 Results Only [facility] [phone] Kimmie Peterson MD [address] [place] [phone] Social History Tobacco Use Types Packs/Day Years [...] Diagnosis Comments PAP TEST- RESULT ONLY Routine 01/25/2015 0:00 EDT documented in this encounter Results * PAP TEST- RESULT ONLY (01/25/2015 0:00 EDT) Pathology Report: CYTOPATHOLOGY REPORT Reports generated via electronic interface contain original data; however they are lacking the format of the original report. Caution should be taken when reading/interpreti ng unformatted reports. Name: ? LUIZ BRADLEY ? Accession #: ? [id number] : ? 1990 (Age: 25) ??F ?Collect Date: ? 01/25/2015 Location: ? [facility] ? Receive Date: ? 01/28/2015 Provider: ?KIMMIE PETERSON MD Copy to: ? Specimen/Source: ?Pap Test, Cervix/Endocervix, ThinPrep Imaging System with manual evaluation Last Menstrual Period: ? 01/14/15 ? SPECIMEN ADEQUACY ? Satisfactory for Evaluation - transformation zone component present GENERAL CATEGORIZATION ? Negative for Intraepithelial Lesion or Malignancy ? Document reviewed and electronically signed by: ? CARMEN Hinkle(ASCP) ? Report Date: ??02/01/2015 13:16 End of Report [facility] 01/25/2015 01/28/2015 Kimmie Peterson MD PATHOLOGY ORD ERABLES [facility] [address] [place] [address] documented in this encounter Visit Diagnoses Not on filedocumented in this encounter Care Teams Liquid Sugar Melter Relationship Specialty Start Date End Date Nataliia Marley MD [address] [place] [address] PCP - General 09/26/10 12/21/19 documented as of this encounter
--- OUTSIDE RECORDS SUMMARY | 2024-04-04 12:59 | XMS_ITS | Encounter Summary ---
Author Organization [facility] Address [address] [place] [address] Care Team Providers Care Larriman Name Role Phone Nataliia Marley MD Primary Care Provider [phone] Reason for Visit * Reason Comments Follow-up mole removal buttock s Encounter Details Date Type Department Care Team (Late st Contact Info) Description 10/20/2016 9:40 EDT Office Visit [facility] Dermatology 3rd Floor [facility] [address] [place] [address] Tiffanie Yarbrough MD PhD [address] [facility], Level [address] [place] [address] Neoplasm of uncertain behavior of skin (Primary Dx) Discharge Disposition: Auto Discharge [...] as of this encounter Discharge Diagnoses Diagnosis D48.5 Neoplasm of uncertain behavior of skin-D48.5[ICD-10-CM] documented in this encounter Patient Instructions * Patient Instructions* Gabriela Urrutia - 10/20/2016 9:40 EDT DERMATOLOGY WOUND CARE INSTRUCTIONS FOR SKIN BIOPSY The DRESSING/BANDAID should remain in place for 24 hours. You may shower or bathe after 24 hours; remove the bandage and replace it after the shower. DISCOMFORT: Extra-Strength Tylenol, as directed by billing department supervisor, usually relieves any pain you may have. [...] Refills Start Date End Da te clindamycin (CLEOCIN) 300 mg capsule Take 1 Cap by mouth every 8 hours for 5 days. 15 Cap 10/20/2016 10/25/2016 cephALEXin (KEFLEX) 500 mg capsule Take 1 Cap by mouth 3 times daily for 5 days. 15 Cap 10/20/2016 10/20/2016 documented in this encounter Discharge Disposition Disposition Code Departure Means Destination Auto Discharge documented in this encounter Progress Notes * Gabriela Urrutia - 10/20/2016 9767 EDT Review of Systems Constitutional: Negative for fatigue, [...] sleep disturbance. The patient is not nervous/anxious. Gabriela Urrutia 10/20/2016 9:34 Patient Education Topic: Wound Care Method: Handout and Verbal Taught to: Patient Barriers: None Outcomes: independent and verbalized understanding Signature:Gabriela Urrutia 10/20/2016 10:00 * Tiffanie Yarbrough MD - 10/20/2016 2382 EDT SHAVE BIOPSY PATIENT INFORMATION: Luiz Mariam Mirna : MRN: [id number] SURGEON: Tiffanie Yarbrough MD 10/20/2016 10:04 The indication, risks, benefits and alternatives to this procedure were discussed in detail with the patient and all questions were answered. Informed consent was obtained in writing. PROCEDURE NOTE Specimen A Procedure: Tangential Shave Indication: Diagnostic Biopsy Site: right perineum Anesthesia: 1% lidocaine with epinephrine 1:100,000 local infiltration Prep: Chlorhexidine The lesion was prepped as above and locally anesthetized. The specimen was removed by tangential shave using a Dermablade??. Hemostasis was achieved with pressure and/or aluminum chloride. The wound was cleansed with alcohol and a sterile dressing was applied over Petrolatum ointment. Verbal and written wound care instructions were given.The specimen was submitted to pathology for histological evaluation. Start Clindamycin 300mg PO Q8H x 5days. Will call with biopsy results. Tiffanie Yarbrough MD 10/20/2016 10:05 documented in this encounter Plan of Treatment Scheduled Orders Name Type Priority Associated Diagnoses Orde r Schedule SURGICAL PATHOLOGY- ORDER ONLY Pathology Routine Neoplasm of uncertain behavior of skin Ordered: 10/20/2016 documented as of this encounter Procedures Procedure Name Priority Date/Time Associated Diagnosis Comments SURGICAL PATHOLOGY Routine 10/20/2016 9:22 EDT documented in this encounter Results * SURGICAL PATHOLOGY (10/20/2016 9:22 EDT) Pathology Report: SURGICAL PATHOLOGY REPORT Reports generated via electronic interface contain original data; however they are lacking the format of the original report. Caution should be taken when reading/interpret ing unformatted reports. Name: ? LUIZ BRADLEY ? Accession #: ? [id number] ? : ? 1990 (Age: 26) ??F ? Collect Date: ? 10/20/2016 ? Location: ? [facility] ? Receive Date: ? 10/20/2016 ? Provider: TIFFANIE YARBROUGH MD Copy to: ? Final Pathologic Diagnosis: SKIN OF PERINEUM, RIGHT, SHAVE BIOPSY: - Melanocytic nevus, compound type. - Lesion extends to peripheral edge and base of biopsy specimen. ?? Document reviewed and electronically signed by: GUIDO WHARTON MD Report ??Date: 10/24/2016 12:57 By the signature above, the attending physician certifies that he/she has personally conducted a gross and/or microscopic examination of the described specimens and rendered or confirmed the above diagnosis. Specimen(s) Received: Right perineum Clinical History: 8.0 mm dark brown speckled papule; clinical diagnosis code: ??D48.5 Gross Description: ? Received in formalin labelled with proper patient identification (initials K, S) and right perineum is a shave biopsy of a dome shaped mcclain-brown soft papule (0.9 x 0.8 x 0.4 cm). The specimen is inked, trisected and totally submitted in 1. DREAD John (ASCP) 10/23/2016 7:40 AM End of Report [facility] 10/20/2016 9:22 EDT 10/20/2016 9:22 EDT Tiffanie Yarbrough MD PhD PATHOLOGY ORDERAB LES [facility] [address] [place] [address] documented in this encounter Visit Diagnoses Diagnosis Neoplasm of uncertain behavior of skin- Primary documented in this encounter Discontinued Medications Medication Sig Discontinue Reason Start Date End Da te cephALEXin (KEFLEX) 500 mg capsule Take 1 Cap by mouth 3 times daily for 5 days. 10/20/2016 10/20/2016 documented as of this encounter Care Teams Larriman Relationship Specialty Start Date End Date Natlaiia Marley MD [address] [place] [id number] PCP - General 09/26/10 12/21/19 documented as of this encounter
[2024-04-04 15:08] LABS: Influenza A PCR Negative (Negative); Influenza B PCR Negative (Negative); RSV PCR Negative (Negative)
[2024-04-04 15:14] LABS: COVID-19 PCR Positive (Negative); Source Nasopharynx
[2024-04-04 21:41] LABS: Abs Immature Grans 0.02 10^3/uL (0.0-0.06); Absolute Basophil Count 0.03 10^3/uL (0.0-0.2); Absolute Eosinophil Count 0.02 10^3/uL (0.0-0.7); Absolute Lymphocyte Count 0.88 10^3/uL (1.2-3.4); Absolute Monocyte Count 0.52 10^3/uL (0.1-0.8); Absolute Neutrophil Count 1.75 10^3/uL (1.2-6.7); Basophils % 0.9 %; Eosinophils % 0.6 %; HCT 34.8 % (36.0-46.0); HGB 11.1 g/dL (11.2-15.7); Immature Grans % 0.6 %; Lymphocytes % 27.3 %; MCHC 31.9 % (32.0-36.0); MCV 75 fL (80-95); Monocytes % 16.1 %; Neutrophils % 54.5 %; RBC 4.63 10^6/uL (3.93-5.22); RDW 16.4 % (11.7-14.6); RDW-SD 44.4 fL; WBC 3.22 10^3/uL (4.4-10.8)
== END 2024-04-04 12:57 | disposition home or self-care (01) ==
LOC: NCHCN 12:56
PROVIDERS: PCP Nurse Practitioner Family; Visit Provider Family Medicine
DX: R50.9 Fever, unspecified (principal)
CPT/HCPCS: 80053; 87637; 85025

== ENCOUNTER 2024-04-18 13:02 | Outpatient (REF) | payer BC, SELFPAY ==
--- OUTSIDE RECORDS SUMMARY | 2024-04-18 13:06 | XMS_ITS | Encounter Summary ---
Author Organization [facility] Address [address] [place] [address] Care Team Providers Care .Net Developer Name Role Phone Yocasta Cronin Primary Care Provider Reason for Visit * Reason Onset Date Comments Other 12/22/2019 covid testing Encounter Details Date Type Department Care Team ([facility] st Contact Info) Description 12/22/2019 Telephone [facility] - Mobile Testing Department [address] [place] [address] Nataliia Marley MD [address] [place] [phone] Other (covid testing) Social History Tobacco [...] EDT Spoke with patient. She is a [employer] employee. Her PCP put the order in for Zachary. Was inquiring as to how soon we could get in, which is tomorrow. Offered [facility], patient declined. Patient will go to [facility] tomorrow. Sunday12/23/2019 documented in this encounter Plan of Treatment Not on file documented as of this encounter Visit Diagnoses Not on filedocumented in this encounter Care Teams .Net Developer Relationship Specialty Start Date End Date Yocasta Cronin [address] [place] [address] PCP - General Internal Medicine - Primary Care 12/22/19 documented as of this encounter
--- OUTSIDE RECORDS SUMMARY | 2024-04-18 13:06 | XMS_ITS | Encounter Summary ---
Author Organization [facility] Address [address] [place] [address] Care Team Providers Care Portable Router Operator Name Role Phone Roseanne Yocasta Becerra Primary Care Provider [phone] Reason for Visit * Reason Onset Date Comments Establish Care 10/29/2023 Encounter Details Date Type Department Care Team ([facility] st Contact Info) Description 10/29/2023 Telephone [facility] Integrative Family Medicine [phone] [id number] Establish Care Social History Tobacco Use Types [...] on filedocumented in this encounter Care Teams Portable Router Operator Relationship Specialty Start Date End Date Yocasta Cronin [address] [place] [address] PCP - General Internal Medicine - Primary Care 12/22/19 documented as of this encounter
--- OUTSIDE RECORDS SUMMARY | 2024-04-18 13:06 | XMS_ITS | Encounter Summary ---
Author Organization [facility] Address [address] [place] [address] Care Team Providers Care Office Technician Name Role Phone Roseanne Yocasta Becerra Primary Care Provider [phone] Encounter Details Date Type Department Care Team ([facility] st Contact Info) Description 04/16/2024 19:00 EST Phlebotomy Only [facility] - Outpatient Phlebotomy Drawing [address] [place] [address] Lab, [facility] [place] Viral infection, unspecified; Anemia, unspecified Social History Tobacco Use Types Packs/Day Years [...] Procedure Name Priority Date/Time Associated Diagnosis Comments ANAPLASMA AND BABESIA TESTING BY PCR Routine 04/16/2024 19:07 EST Viral infection, unspecified Anemia, unspecified IBC Routine 04/16/2024 19:07 EST Viral infection, unspecified Anemia, unspecified COMPLETE BLOOD COUNT AND DIFFERENTIAL Routine 04/16/2024 19:07 EST Viral infection, unspecified Anemia, unspecified IRON Routine 04/16/2024 19:07 EST Viral infection, unspecified Anemia, unspecified FERRITIN Routine 04/16/2024 19:07 EST Viral infection, unspecified Anemia, unspecified documented in this encounter Results * ANAPLASMA AND BABESIA TESTING BY PCR (04/16/2024 19:07 EST) Anaplasma phagocytophilum Negative Negative 04/18/2024 11:22 EST [facility] Babesia Species Negative Negative 11:22 EST [facility] Blood VENOUS BLOOD / Unknown Venipuncture / Unknown 04/16/2024 19:07 EST 04/16/2024 19:10 EST Narrative [facility] - 04/18/2024 11:22 EST This test was developed and its performance characteristics determined by [facility]. It has not been cleared or approved by the US Food and Drug Administration. FDA does not require this test to go through premarket FDA review. This test is used for clinical purposes. It should not be regarded as investigational or research. This laboratory is certified under the Clinical Laboratory Improvement Amendments (CLIA) as qualified to perform high complexity clinical laboratory testing. Yocasta Cronin CHEMISTRY & BLOOD GA S ORDERABLES [facility] [address] [place] [address] * (ABNORMAL) IRON (04/16/2024 19:07 EST) Iron 36(L) 37 - 170 ??g/dL 04/16/2024 19:33 EST [facility] Blood VENOUS BLOOD / Unknown Venipuncture / Unknown 04/16/2024 19:07 EST 04/16/2024 19:11 EST Yocasta Mariam Cronin CHEMISTRY & BLOOD GA S ORDERABLES Performing Organization Address City/[facility]/ZIP Co de Phone Number [facility] [address] [place] [address] * FERRITIN (04/16/2024 19:07 EST) Pathologist [facility] Ferritin 11 11 - 264 ng/mL 04/16/2024 20:14 EST [facility] Blood VENOUS BLOOD / Unknown Venipuncture / Unknown 04/16/2024 19:07 EST 04/16/2024 19:11 EST Narrative [facility] - 04/16/2024 20:14 EST The results of this assay can be falsely lowered due to the consumption of Biotin. Yocasta Cronin CHEMISTRY & BLOOD GA S ORDERABLES Performing Organization Address [facility]/ZIP Co de Phone Number [facility] [address] [place] [address] * IBC (04/16/2024 19:07 EST) [facility] Iron Binding Capacity 366 240 - 450 ??g/dL 04/16/2024 19:42 [facility] Blood VENOUS BLOOD / Unknown Venipuncture / Unknown 04/16/2024 19:07 EST 04/16/2024 19:11 EST Yocasta R Roseanne CHEMISTRY & BLOOD GA S ORDERABLES Performing Organization Address City/[facility]/ZIP Co de Phone Number [facility] [address] [place] [address] * (ABNORMAL) COMPLETE BLOOD COUNT AND DIFFERENTIAL (04/16/2024 19:07 EST) Pathologist [facility] WBC 5.19 4.00 - 12.40 K/cmm 04/16/2024 19:23 EST [facility] RBC 4.20 3.86 - 5.04 M/cmm 04/16/2024 19:23 [facility] Hemoglobin 10.0(L) 11.6 - 15.2 g/dL 04/16/2024 19:23 [facility] HCT 31.3(L) 34.9 - 44.4 % 04/16/2024 19:23 [facility] MCV 75(L) 81 - 98 fL 04/16/2024 19:23 [facility] MCH 23.8(L) 26.7 - 33.3 pg 04/16/2024 19:23 [facility] Hypochromia 1+ 04/16/2024 19:23 [facility] MCHC 31.9(L) 32.1 - 35.9 g/dL 04/16/2024 19:23 [facility] RDW-CV 17.0(H) <14.7 % 04/16/2024 19:23 [facility] RDW-SD 45.6 <50.4 fl 04/16/2024 19:23 [facility] Anisocytosis 1+ 04/16/2024 19:23 [facility] PLT 374 141 - 377 K/cmm 04/16/2024 19:23 [facility] MPV 9.1(L) 9.5 - 12.7 fL 04/16/2024 19:23 [facility] % Neutrophils 71.9 Not Indicated % 04/16/2024 19:23 [facility] % Lymphocytes 17.3 Not Indicated % 04/16/2024 19:23 [facility] % Monocytes 9.6 Not Indicated % 04/16/2024 19:23 [facility] % Eosinophils 0.2 Not Indicated % 04/16/2024 19:23 [facility] % Basophils 0.6 Not Indicated % 04/16/2024 19:23 [facility] % Immature Grans 0.4 <0.9 % 04/16/20 19:23 [facility] Absolute Neutrophils 3.73 2.20 - 8.85 K/cmm 04/16/2024 19:23 [facility] Absolute Lymphocytes 0.90(L) 1.09 - 3.30 K/cmm 04/16/2024 19:23 [facility] Absolute Monocytes 0.50 0.10 - 0.80 K/cmm 04/16/2024 19:23 [facility] Absolute Eosinophils 0.01(L) 0.03 - 0.61 K/cmm 04/16/2024 19:23 [facility] ABS Basophils 0.03 0.01 - 0.11 K/cmm 04/16/2024 19:23 [facility] Absolute Immature Grans 0.02 0.00 - 0.06 K/cmm 04/16/2024 19:23 [facility] Type of Differential: Auto 04/16/2024 19:23 [facility] Blood VENOUS BLOOD / Unknown Venipuncture / Unknown 04/16/2024 19:07 EST 04/16/2024 19:10 EST Yocasta Cronin PACKAGES & DNA PROBE ORDERABLES Performing Organization Address City/State/[facility] Co de Phone Number [facility] [address] [place] [address] documented in this encounter Visit Diagnoses Diagnosis Viral infection, unspecified Anemia, unspecified documented in this encounter Care Teams Office Technician Relationship Specialty Start Date End Date Yocasta Cronin [address] [place] [address] PCP - General Internal Medicine - Primary Care 12/22/19 documented as of this encounter
--- OUTSIDE RECORDS SUMMARY | 2024-04-18 13:06 | XMS_ITS | Encounter Summary ---
Author Organization [facility] Address [address] [place] [address] Care Team Providers Care Photographic Restorer Name Role Phone Roseanne Yocasta Becerra Primary Care Provider [phone] Encounter Details Date Type Department Care Team ([facility] Contact Info) Description 05/18/2021 Lab Requisition [facility] Lab - Main [place] [address] [place] [id number] Health, [facility] Employee Contact with and (suspected) [...] Priority Date/Time Associated Diagnosis Comments ZZCOVID-19 TESTING ([facility]) Today 05/18/2021 9:32 EST Contact with and (suspected) exposure to covid-19 ZZCOVID-19 [facility] (TESTING ONLY) Today 05/18/2021 9:32 EST Contact with and (suspected) exposure to covid-19 documented in this encounter Results * COVID-19 [facility] (TESTING ONLY) (05/18/2021 9:32 EST) COVID-19 rt-PCR Result Negative Negative 05/18/2021 10:31 EST [facility] Comment: This test has not [...] terminated or revoked sooner. Performed on the [employer] GeneXpert Instrument The 2019 novel coronavirus (SARS-CoV-2) target nucleic acids are not detected. Swab 05/18/2021 9:32 EST 05/18/2021 9:32 EST [facility] MICROBIOLOGY - GENERAL ORDERABLES Performing Organization Address City/[facility]/ZIP Co de Phone Number [facility] [address] [place] [phone] * COVID-19 TESTING ([facility], [facility], ) (05/18/2021 9:32 EST) Performing Lab [facility] 05/18/2021 9:34 EST [facility] Swab 05/18/2021 9:32 EST 05/18/2021 9:32 EST [facility] MICROBIOLOGY - GENERAL ORDERABLES [facility] [address] [place] [address] documented in this encounter Visit Diagnoses Diagnosis Contact with and (suspected) exposure to covid-19 documented in this encounter Care Teams Photographic Restorer Relationship Specialty Start Date End Date Yocasta Cronin [address] [place] [address] PCP - General Internal Medicine - Primary Care 12/22/19 documented as of this encounter
--- OUTSIDE RECORDS SUMMARY | 2024-04-18 13:06 | XMS_ITS | Encounter Summary ---
Author Organization [facility] Address [address] [place] [address] Care Team Providers Care Sandwich Peddler Name Role Phone Yocasta Cronin Primary Care Provider [phone] Reason for Visit * Reason Comments COVID-19 R/O COVID - SOME SYM PTOMS Encounter Details Date Type Department Care Team ([facility] Contact Info) Description 12/23/2019 10:30 EDT Nurse Only [facility] - Mobile Testing Department [address] [place] [address] Nurse, [facility] Testing Screening for viral disease (Primary [...] other viral disease, Z11.59 Nurse Encounter charge [id number] documented in this encounter Plan of Treatment Not on file documented as of this encounter Visit Diagnoses Diagnosis Screening for viral disease- Primary Special screening examination for unspecified viral disease documented in this encounter Additional Health Concerns Infection Onset Date Last Indicated Resolved Time R/O COVID-19 12/22/2019 12/23/2019 12/28/2019 22:1 7 EDT documented as of this encounter Care Teams Sandwich Peddler Relationship Specialty Start Date End Date Yocasta Cronin [address] [place] [address] PCP - General Internal Medicine - Primary Care 12/22/19 documented as of this encounter
--- OUTSIDE RECORDS SUMMARY | 2024-04-18 13:06 | XMS_ITS | Encounter Summary ---
Author Organization [facility] Address [address] [place] [address] Care Team Providers Care Document Control Clerk Name Role Phone Nataliia Marley MD Primary Care Provider Encounter Details Date Type Department Care Team (Late st Contact Info) Description 11/07/2016 Phlebotomy Only [address] [address] [employer] [facility], Outpatient Social History Tobacco Use Types Packs/Day [...] on filedocumented in this encounter Care Teams Document Control Clerk Relationship Specialty Start Date End Date Nataliia Marley MD [address] [place] [address] PCP - General 09/26/10 12/21/19 documented as of this encounter
--- OUTSIDE RECORDS SUMMARY | 2024-04-18 13:06 | XMS_ITS | Encounter Summary ---
Author Organization [facility] Address [address] [place] [address] Care Team Providers Care Licensed Midwife Name Role Phone Yocasta Cronin Primary Care Provider [phone] Encounter Details Date Type Department Care Team (Late st Contact Info) Description 12/20/2020 Lab Requisition [facility] Pathology & Laboratory Medicine - [address] [address] Yocasta Cronin [address] [place] [address] Encounter for general adult medical examination without [...] System with Manual Evaluation 12/27/2020 14:16 EDT [facility] Specimen Adequacy Satisfactory for Evaluation - transformation zone component present 12/27/2020 14:16 EDT [facility] General Categorization Negative for intraepithelial lesion or malignancy 12/27/2020 14:16 EDT [facility] Attestation . 12/27/2020 14:16 T [facility] at 1416 Clinical History See below 12/28/19 14:16 EDT [facility] Performing Lab [facility] 12/27/2020 14:16 EDT [facility] Scanned Images 12/27/2020 14:16 EDT [facility] Papanicolaou smear specimen (specimen) CERVIX UTERI STRUCTURE / Unknown 12/17/2020 15:20 EDT 12/20/2020 15:08 EDT Yocasta Cronin PATHOLOGY ORDERABLES Performing Organization Address City/State/[facility] Co de Phone Number [facility] [address] [place] [address] documented in this encounter Visit Diagnoses Diagnosis Encounter for general adult medical examination without abnormal findings Unspecified general medical examination Encounter for screening for malignant neoplasm of cervix Screening for malignant neoplasm of the cervix documented in this encounter Care Teams Licensed Midwife Relationship Specialty Start Date End Date Yocasta Cronin [address] [place] [address] PCP - General Internal Medicine - Primary Care 12/22/19 documented as of this encounter
--- OUTSIDE RECORDS SUMMARY | 2024-04-18 13:06 | XMS_ITS | Encounter Summary ---
Author Organization [facility] Address [address] [place] [address] Care Team Providers Care Talent Director Name Role Phone Yocasta Cronin Primary Care Provider [phone] Reason for Visit * Reason Onset Date Comments Establish Care 07/02/2023 Encounter Details Date Type Department Care Team ([facility] st Contact Info) Description 07/02/2023 Telephone [facility] Integrative Family Medicine [address] [address] Yocasta Cronin [address] [place], [place] [phone] Establish Care Social History Tobacco Use Types [...] 1. Where was the previous pcp or clinic--[facility] 2. Why did the patient leave the previous pcp or clinic--[place] in [place] and it would be easier for pt to come to us 3. If no specific clinic/pcp has patient been utilizing walk in clinics--N/A documented in this encounter Plan of Treatment Not on file documented as of this encounter Visit Diagnoses Not on filedocumented in this encounter Care Teams Talent Director Relationship Specialty Start Date End Date Yocasta Cronin [address] [place] [address] PCP - General Internal Medicine - Primary Care 12/22/19 documented as of this encounter
--- OUTSIDE RECORDS SUMMARY | 2024-04-18 13:06 | XMS_ITS | Encounter Summary ---
Author Organization [facility] Address [address] [place] [address] Care Team Providers Care Focus Puller Name Role Phone Roseanne Yocasta Becerra Primary Care Provider [phone] Encounter Details Date Type Department Care Team ([facility] st Contact Info) Description 09/21/2021 Lab Requisition [facility] Lab - Main [place] [address] [place] [address] [id number] Health, [facility] Employee Encounter for other general examination Social [...] Name Priority Date/Time Associated Diagnosis Comments ZZCOVID-19 [facility] (TESTING ONLY) Today 09/21/2021 9:00 EDT Encounter for other general examination COVID-19 TESTING Today 09/21/2021 9:00 EDT Encounter for other general examination documented in this encounter Results * COVID-19 CV (TESTING ONLY) (09/21/2021 9:00 EDT) COVID-19 rt-PCR Result Negative Negative 09/22/2021 9:24 EDT [facility] Comment: This test has not [...] acids are not detected. Performed on the [employer] Liaison Instrument. Swab 09/21/2021 9:00 EDT 09/21/2021 14:22 EDT [facility] MICROBIOLOGY - GENERAL ORDERABLES Performing Organization Address City/[facility]/ZIP Co de Phone Number [facility] [address] [place] [address] * COVID-19 TESTING (09/21/2021 9:00 EDT) Pathologist [facility] COVID-19 rt-PCR Result Negative Negative 09/22/2021 9:24 EDT [facility] Performing Lab [employer] Liaison [facility] Lab 09/22/2021 9:24 EDT [facility] Swab 09/21/2021 9:00 EDT 09/21/2021 14:22 EDT [facility] MICROBIOLOGY - GENERAL ORDERABLES [facility] [address] [place] [address] documented in this encounter Visit Diagnoses Diagnosis Encounter for other general examination documented in this encounter Care Teams Focus Puller Relationship Specialty Start Date End Date Yocasta Cronin [address] [place] [address] PCP - General Internal Medicine - Primary Care 12/22/19 documented as of this encounter
--- OUTSIDE RECORDS SUMMARY | 2024-04-18 13:06 | XMS_ITS | Encounter Summary ---
Author Organization [facility] Address [address] [place] [address] Care Team Providers Care Plant Specialist Name Role Phone Nataliia aMrley MD Primary Care Provider [phone] Encounter Details Date Type Department Care Team ([facility] st Contact Info) Description 09/24/2018 Historical Results Only [facility] Lab - Main [address] [phone] Unknown, Provider, Social History Tobacco Use Types [...] IgG Ab Positive Negative 09/26/2018 22:37 EDT [facility] Comment:Presumed immune to V aricella infection. 09/24/2018 9:54 EDT 09/24/2018 9:54 EDT [facility] - 09/26/2018 22:37 EDT Does PT Have a Latex Allergy? NO Provider Unknown IMMUNOLOGY AND SEROL OGY ORDERABLES Performing Organization Address [facility]/ZIP Co de Phone Number [facility] * QUANTIFERON TB GOLD PLUS (09/24/2018 9:54 EDT) Quantiferon Interpretation Negative NEGAT 09/27/2018 14:33 EDT [facility] Comment: Reference Range: Negative No [...] Nil 0.00 () IU/mL 09/28/19 14:33 EDT [facility] TB2 Ag minus Nil 0.00 () IU/mL 09/28/19 14:33 EDT [facility] Comment: Test performed [place] [address] 09/24/2018 9:54 EDT 09/24/2018 9:54 EDT [facility] - 09/27/2018 14:33 EDT Does PT Have a Latex Allergy? NO Provider Unknown CHEMISTRY & BLOOD GA S ORDERABLES Performing Organization Address [facility]/ZIP Co de Phone Number [facility] * HEPATITIS B SURFACE ANTIBODY (09/24/2018 9:53 EDT) Hep B Surface Ab, Qualitative > 1000 09/24/2018 11:41 EDT [facility] Comment: ? Interpretative Guidelines >=12.00 [...] 09/24/2018 9:53 EDT 09/24/2018 9:53 EDT Narrative [facility] - 09/24/2018 11:41 EDT Does PT Have a Latex Allergy? NO Provider Unknown CHEMISTRY & BLOOD GA S ORDERABLES [facility] documented in this encounter Visit Diagnoses Not on filedocumented in this encounter Care Teams Plant Specialist Relationship Specialty Start Date End Date Nataliia Marley MD [address] [place] [id number] PCP - General 09/26/10 12/21/19 documented as of this encounter
--- OUTSIDE RECORDS SUMMARY | 2024-04-18 13:06 | XMS_ITS | Encounter Summary ---
Author Organization [facility] Address [address] [place] [address] Care Team Providers Care Lighting Adviser Name Role Phone Nataliia Marley MD Primary Care Provider [phone] Reason for Visit * Reason Comments Otalgia Pt with bilateral ot algia. Recent URI sx. A&O. Respirations unlabored. Skin warm &D ry. NAD. Encounter Details Date Type Department Care Team (Late st Contact Info) Description 07/19/2019 21:19 EST - 07/19/2019 22:12 EST Emergency [facility] Emergency Department - Main [place] [address] [place] [address] [id number] Dada Marley PA-C [address] [place] [address] [phone] Otalgia of both ears (Primary Dx); Upper [...] Code Departure Means Destination Home or Self Alf documented in this encounter ED Notes * [...] chills. No cough. She has been using [id number] eardrops without relief. She denies any recent [...] data found. * Raquel Ochoa RN - 07/19/20197 EST DREAD Marley at bedside to assess patient * Sammy Perez RN - 07/19/20198 EST Chief Complaint Patient presents with ??? [...] Discontinue Reason Start Date End Da te cnxgtzbt-johjajisp-pyif methasone (MAXITROL) ophthalmic ointmentIndications:Milagros lazion left upper [...] 20 documented in this encounter Care Teams Lighting Adviser Relationship Specialty Start Date End Date Nataliia Marley MD [address] [place] [address] PCP - General 09/26/10 12/21/19 documented as of this encounter
--- OUTSIDE RECORDS SUMMARY | 2024-04-18 13:06 | XMS_ITS | Encounter Summary ---
Author Organization [facility] Address [address] [place] [address] Care Team Providers Care Bridge Worker Name Role Phone Roseanne Yocasta Becerra Primary Care Provider [phone] Encounter Details Date Type Department Care Team (Late st Contact Info) Description 11/25/2022 Lab Requisition [facility] Pathology & Laboratory Medicine - [address] [address] Outr Resulting Lab, Provider Social History Tobacco [...] Lyme Ab Negative Negative 11/27/2022 10:11 EDT [facility] Blood VENOUS BLOOD / Unknown 11/24/2022 15:30 EDT 11/25/2022 21:36 EDT Provider Outr Resulting Lab IMMUNOLOGY A ND SEROLOGY ORDERABLES Performing Organization Address City/State/[facility] Co de Phone Number [facility] [address] [place] [address] documented in this encounter Visit Diagnoses Not on filedocumented in this encounter Care Teams Bridge Worker Relationship Specialty Start Date End Date Yocasta Cronin [address] [place] [address] PCP - General Internal Medicine - Primary Care 12/22/19 documented as of this encounter
--- OUTSIDE RECORDS SUMMARY | 2024-04-18 13:06 | XMS_ITS | Encounter Summary ---
Author Organization [facility] Address [address] [place] [address] Care Team Providers Care Theater Teacher Name Role Phone Roseanne Yocasta Becerra Primary Care Provider [phone] Reason for Referral * Laboratory Services (Routine) - New Request Specialty Diagnoses / Procedures Referred By Contclinton t Referred To Contact Diagnoses Sore throat Procedures COVID-19 TESTING Oriana Garvey, FAINA [address] [place] [address] Referral ID Status Reason Start Date Expiration Date V isits Requested Visits Authorized [id number] New Request 12/22/2019 1 1 Reason for Visit * Reason Onset Date Comments Other 12/21/2019 Covid-19 Call Ce nter Encounter Details Date Type Department Care Team ([facility] Contact Info) Description 12/22/[address] [address] Tori John, RN Other (Covid-19 Call Center) [...] by provider. Routed for testing ordering. 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 Spoke to patient and verbally [...] reviewed. 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 * Telephone Encounter - Tori John RN - 12/22/2019 0932 EDT This patient is calling the [facility] COVID-19 information center with concern for COVID-19. The patient has had 2 days of body aches and one day of sore throat. Denies any other symptoms. COVID-19 testing is indicated according to current [facility] algorithm. The patient has not been previously tested for Covid-19. 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 Patient is not immunocompromised. The patient is not a resident of a detention or assisted living facility. This patient is [...] for 20 seconds or an alcohol-based hand chain repairer that contains at least 60% alcohol. ? [...] medical emergency. Inform your PCP office or dispatcher clerk that you are on self-isolation for possible [...] COVID-19 TESTING (12/23/2019 10:20 EDT) Performing Lab [facility] 12/26/2019 7:46 EDT [facility] Comment: Is Patient Admitted or Awaiting Admission?:NO Test performed or referred by The [address] [address] COVID-19 rt-PCR Result Not Detected Negative 12/26/2019 [...] in accordance with CLIA regulations, [employer] (CAP) guidelines (Aug 28, 2019), and FDA guidance (Aug 09, 2019). This test is only for use under the Food and Drug Administration's Emergency Use Authorization. Swab ENTIRE NASOPHARYNX / Unknown 12/23/2019 10:20 EDT 12/23/2019 11:54 EDT Oriana Garvey NP MICROBIOLOGY - GENER AL ORDERABLES [facility] [address] [place] [address] documented in this encounter Visit Diagnoses Diagnosis Sore throat- Primary Acute pharyngitis documented in this encounter Additional Health Concerns Infection Onset Date Last Indicated Resolved Time R/O COVID-19 12/22/2019 12/23/2019 12/28/2019 22:1 7 EDT documented as of this encounter Care Teams Theater Teacher Relationship Specialty Start Date End Date Yocasta Cronin [address] [place] [address] PCP - General Internal Medicine - Primary Care 12/22/19 documented as of this encounter
--- OUTSIDE RECORDS SUMMARY | 2024-04-18 13:06 | XMS_ITS | Encounter Summary ---
Author Organization [facility] Address [address] [place] [address] Care Team Providers Care Breaker Off Name Role Phone Roseanne Yocasta Mariam Primary Care Provider [phone] Encounter Details Date Type Department Care Team (Late st Contact Info) Description 07/04/2022 Lab Requisition [facility] Pathology & Laboratory Medicine - [address] [address] Court Ferraro MD [address] [place] [address] [address] [place] [address] Neoplasm of uncertain behavior of skin Social [...] outside consultation by Dr. Stephon Goodrich at [facility]. Dr. Goodrich feels the lesion is best [...] were given to Dr. Ferraro. 07/27/2022 10:29 [facility] Note to Patient The following pathology results have been interpreted by your pathologist and may be available to you before your health provider has had the opportunity to review them. Please allow time for your provider to receive these results and explore management options, if applicable. 07/27/2022 10:29 [facility] Final Diagnosis A. SKIN OF PRETIBIAL REGION, RIGHT DISTAL, PUNCH BIOPSY: - COMPOUND SPITZ'S NEVUS. See comment. - Lesion does not extend to biopsy edges in the plane of sections examined. - Lesion measures approximately 0.4 mm to the biopsy edge. - Lesion measures approximately 4.0 mm to the biopsy base. 07/27/2022 10:29 [facility] Diagnosis Comment The findings are [...] will be sent to Dr.Philip Goodrich at [facility] and an addendum report will be issued upon receipt of those findings. These results were given to [facility]. 07/27/2022 10:29 [facility] Attestation By the signature below, the attending physician certifies that they have 1) personally conducted a gross and/or microscopic examination of the described specimen(s), and/or personally interpreted the results of laboratory testing of the described specimen(s), and 2) personally rendered or confirmed the above diagnosis. 07/27/2022 10:29 [facility] Amendment electronically signed by Patsy [...] well-developed confluent growth and upper migration.P16 ([id number], [place]) shows strong diffuse positivity. Additional sections have [...] performance characteristics have been determined by [facility] and/or by the referring laboratory. The positive [...] high complexity clinical laboratory testing.? 07/27/2022 10:29 [facility] Clinical History Dome shaped red papule; DDx: Spitz nevus vs. dysplastic nevus; clinical diagnosis code: D48.5 07/27/2022 10:29 [facility] Gross Description A. Received in formalin labelled with proper patient identification (initials K, S) and right distal pretibial region is a mcclain-pink skin punch biopsy measuring 0.5 cm in diameter and excised to a depth of 0.3 cm. Submitted intact in A1. DREAD ACHARYA(ASCP) 07/04/2022 20:07 07/27/2022 10:29 [facility] Performing Lab [facility] 07/27/2022 10:29 [facility] Scanned Images 07/27/2022 10:29 [facility] Tissue TISSUE SPECIMEN FROM SKIN / Unknown 07/04/2022 15:43 EST 07/04/2022 18:[address] Ferraro MD PATHOLOGY ORDERABLES [facility] [address] [place] [address] documented in this encounter Visit Diagnoses Diagnosis Neoplasm of uncertain behavior of skin documented in this encounter Care Teams Breaker Off Relationship Specialty Start Date End Date Yocasta Cronin [address] [place] [id number] PCP - General Internal Medicine - Primary Care 12/22/19 documented as of this encounter
--- OUTSIDE RECORDS SUMMARY | 2024-04-18 13:06 | XMS_ITS | Encounter Summary ---
Author Organization [facility] Address [address] [place] [address] Care Team Providers Care Consultative Sales Associate Name Role Phone Yocasta Cronin Primary Care Provider [phone] Reason for Visit * Reason Onset Date Comments Erroneous Encounter 11/20/2022 Encounter Details Date Type Department Care Team ([facility] Contact Info) Description 11/20/2022 Telephone [facility] Integrative Family Medicine [address] [address] Yocasta Cronin [address] [place], [place] [address] Erroneous Encounter Social History Tobacco Use Types [...] on filedocumented in this encounter Care Teams Consultative Sales Associate Relationship Specialty Start Date End Date Yocasta Cronin [address] [place] [address] PCP - General Internal Medicine - Primary Care 12/22/19 documented as of this encounter
--- OUTSIDE RECORDS SUMMARY | 2024-04-18 13:06 | XMS_ITS | Encounter Summary ---
Author Organization [facility] Address [address] [place] [address] Care Team Providers Care Wood Cutter Name Role Phone Richardjosue Yocasta R Primary Care Provider [phone] Encounter Details Date Type Department Care Team (Late st Contact Info) Description 12/23/2019 Lab Requisition [facility] Pathology & Laboratory Medicine - [address] [address] Outr Resulting Lab, Provider Social History Tobacco [...] rt-PCR Result NEGATIVE Negative 12/25/2019 20:36 EDT [facility] Comment: 2019-novel Coronavirus (2019-nCoV) not detected [...] in accordance with CLIA regulations, [employer] [place] [employer] (CAP) guidelines (Aug 28, 2019), and FDA guidance (Aug 09, 2019). This test is only for use under the Food and Drug Administration's Emergency Use Authorization. Swab ENTIRE NASOPHARYNX / Unknown 12/23/2019 10:20 EDT 12/23/2019 22:00 EDT Provider Outr Resulting Lab MICROBIOLOGY - GENERAL ORDERABLES [facility] [place], [place] * COVID-19 TESTING (12/23/2019 10:20 EDT) COVID-19 rt-PCR Result NEGATIVE Negative 12/26/2019 0:02 EDT [facility] Comment: 2019-novel Coronavirus (2019-nCoV) not detected [...] in accordance with CLIA regulations, [employer] (CAP) guidelines (Aug 28, 2019), and FDA guidance (Aug 09, 2019). This test is only for use under the Food and Drug Administration's Emergency Use Authorization. Performing Lab [facility] 12/26/2019 0:02 EDT [facility] Swab 12/23/2019 10:2 0 EDT 12/23/2019 22:00 EDT Provider Outr Resulting Lab MICROBIOLOGY - GENERAL ORDERABLES [facility] [address] [place] [address] [facility] [place], [place] documented in this encounter Visit Diagnoses Not on filedocumented in this encounter Additional Health Concerns Infection Onset Date Last Indicated Resolved Time R/O COVID-19 12/22/2019 12/23/2019 12/28/2019 22:1 7 EDT documented as of this encounter Care Teams Wood Cutter Relationship Specialty Start Date End Date Yocasta Cronin [address] [place] [address] PCP - General Internal Medicine - Primary Care 12/22/19 documented as of this encounter
--- OUTSIDE RECORDS SUMMARY | 2024-04-18 13:06 | XMS_ITS | Encounter Summary ---
Author Organization [facility] Address [address] [place] [address] Care Team Providers Care Shipper And Receiving Name Role Phone Yocasta Cronin Primary Care Provider [phone] Reason for Visit * Reason Onset Date Comments Appointment Related 04/01/2024 Encounter Details Date Type Department Care Team ([facility] st Contact Info) Description 04/01/2024 Telephone [facility] [place] Medicine [address] [id number] [address] [address] Appointment Related Social History Tobacco Use Types [...] wait list. She has a doctor in [place] and will be moving around. * Telephone Encounter - Diamond Armando - 04/01/2024 1149 EDT Outreach to relay CM update. Does patient want to be on wait list? documented in this encounter Plan of Treatment Not on file documented as of this encounter Visit Diagnoses Not on filedocumented in this encounter Care Teams Shipper And Receiving Relationship Specialty Start Date End Date Yocasta Cronin [address] [place] [address] PCP - General Internal Medicine - Primary Care 12/22/19 documented as of this encounter
--- OUTSIDE RECORDS SUMMARY | 2024-04-18 13:06 | XMS_ITS | Referral Summary ---
Author Organization [facility] Address [address] [place] [address] Care Team Providers Care Inventory Worker Name Role Phone Yocasta Cronin Primary Care Provider [phone] Encounters Date Type Department Care Team Description 04/16/2024 19:00 EST Phlebotomy Only [facility] - Outpatient Phlebotomy Drawing [address] [place] [address] [place], [facility] [place] Viral infection, unspecified; Anemia, unspecified 04/14/2024 Transcribe Orders [facility] Lab - Main [place] [address] [id number] Yocasta Cronin Viral infection, unspecified (Primary Dx); Anemia, unspecified 04/01/[address] [facility] [place] [address] [facility], Appointment Related from Last 3 Months Allergies [...] Comments Blood Pressure 126/83 07/19/20192117 EST Pulse 71 12/23/2019 1135 EDT Temperature 36.9 ??C (98.4 ??F) 07/19/20192117 EST Respiratory Rate 16 07/19/20192117 EST Oxygen Saturation 100% 12/23/2019 1135 EDT Inhaled Oxygen Concentration - - Weight 63.5 kg (140 lb) 07/19/20192117 EST Height 175.3 cm (5' 9) 09/03/2015 1331 EDT Body Mass Index 20.67 09/03/2015 1331 EDT Plan of Treatment Not on file Procedures Procedure Name Priority Date/Time Associated Diagnosis Comments LYME AB SCREEN, IGG AND IGM Add-On 04/16/2024 19:07 EST Viral infection, unspecified ANAPLASMA AND BABESIA TESTING BY PCR Routine 04/16/2024 19:07 EST Viral infection, unspecified Anemia, unspecified IRON Routine 04/16/2024 19:07 EST Viral infection, unspecified Anemia, unspecified FERRITIN Routine 04/16/2024 19:07 EST Viral infection, unspecified Anemia, unspecified IBC Routine 04/16/2024 19:07 EST Viral infection, unspecified Anemia, unspecified COMPLETE BLOOD COUNT AND DIFFERENTIAL Routine 04/16/2024 19:07 EST Viral infection, unspecified Anemia, unspecified from Last 3 Months Results * LYME AB SCREEN, IGG AND IGM (04/16/2024 19:07 EST) Lyme Antibody, IgG Negative Negative 04/17/2024 9:21 EST [facility] Lyme Antibody, IgM Negative Negative 04/17/2024 9:21 EST [facility] Blood VENOUS BLOOD / Unknown Venipuncture / Unknown 04/16/2024 19:07 EST 04/16/2024 19:11 EST Yocasta Cronin IMMUNOLOGY AND SEROL OGY ORDERABLES Performing Organization Address City/[facility]/ZIP Co de Phone Number [facility] [address] [place] [address] * ANAPLASMA AND BABESIA TESTING BY PCR (04/16/2024 19:07 EST) Anaplasma phagocytophilum Negative Negative 04/18/2024 11:22 EST [facility] Babesia Species Negative Negative 11:22 EST [facility] Blood VENOUS BLOOD / Unknown Venipuncture / Unknown 04/16/2024 19:07 EST 04/16/2024 19:10 EST Narrative [facility] - 04/18/2024 11:22 EST This test was developed and its performance characteristics determined by [facility]. It has not been cleared or approved [...] Cronin CHEMISTRY & BLOOD GA S ORDERABLES [facility] [address] [place] [address] * IBC (04/16/2024 19:07 EST) Iron Binding Capacity 366 240 - 450 ??g/dL 04/16/2024 19:42 EST [facility] Blood VENOUS BLOOD / Unknown Venipuncture / Unknown 04/16/2024 19:07 EST 04/16/2024 19:11 EST Yocasta Cronin CHEMISTRY & BLOOD GA S ORDERABLES [facility] [address] [place] [address] * (ABNORMAL) COMPLETE BLOOD COUNT AND DIFFERENTIAL (04/16/2024 19:07 EST) WBC 5.19 4.00 - 12.40 K/cmm 04/16/2024 19:23 [facility] RBC 4.20 3.86 - 5.04 M/cmm 04/16/2024 19:23 [facility] Hemoglobin 10.0(L) 11.6 - 15.2 g/dL 04/16/2024 19:23 [facility] HCT 31.3(L) 34.9 - 44.4 % 04/16/2024 19:23 [facility] MCV 75(L) 81 - 98 fL 04/16/2024 19:23 [facility] MCH 23.8(L) 26.7 - 33.3 pg 04/16/2024 19:23 [facility] Hypochromia 1+ 04/16/2024 19:23 [facility] MCHC 31.9(L) 32.1 - 35.9 g/dL 04/16/2024 19:23 [facility] RDW-CV 17.0(H) <14.7 % 04/16/2024 19:23 [facility] RDW-SD 45.6 <50.4 fl 04/16/2024 19:23 [facility] Anisocytosis 1+ 04/16/2024 19:23 [facility] PLT 374 141 - 377 K/cmm 04/16/2024 19:23 [facility] MPV 9.1(L) 9.5 - 12.7 fL 04/16/2024 19:23 [facility] % Neutrophils 71.9 Not Indicated % 04/16/2024 19:23 [facility] % Lymphocytes 17.3 Not Indicated % 04/16/2024 19:23 [facility] % Monocytes 9.6 Not Indicated % 04/16/2024 19:23 [facility] % Eosinophils 0.2 Not Indicated % 04/16/2024 19:23 [facility] % Basophils 0.6 Not Indicated % 04/16/2024 19:23 [facility] % Immature Grans 0.4 <0.9 % 04/16/20 19:23 [facility] Absolute Neutrophils 3.73 2.20 - 8.85 K/cmm 04/16/2024 19:23 [facility] Absolute Lymphocytes 0.90(L) 1.09 - 3.30 K/cmm 04/16/2024 19:23 [facility] Absolute Monocytes 0.50 0.10 - 0.80 K/cmm 04/16/2024 19:23 [facility] Absolute Eosinophils 0.01(L) 0.03 - 0.61 K/cmm 04/16/2024 19:23 [facility] ABS Basophils 0.03 0.01 - 0.11 K/cmm 04/16/2024 19:23 [facility] Absolute Immature Grans 0.02 0.00 - 0.06 K/cmm 04/16/2024 19:23 [facility] Type of Differential: Auto 04/16/2024 19:23 [facility] Blood VENOUS BLOOD / Unknown Venipuncture / Unknown 04/16/2024 19:07 EST 04/16/2024 19:10 EST Yocasta Cronin PACKAGES & DNA PROBE ORDERABLES [facility] [address] [place] [address] * (ABNORMAL) IRON (04/16/2024 19:07 EST) Iron 36(L) 37 - 170 ??g/dL 04/16/2024 19:33 EST [facility] Blood VENOUS BLOOD / Unknown Venipuncture / Unknown 04/16/2024 19:07 EST 04/16/2024 19:11 EST Yocasta R Roseanne CHEMISTRY & BLOOD GA S ORDERABLES [facility] [address] [place] [address] * FERRITIN (04/16/2024 19:07 EST) Pathologist [facility] Ferritin 11 11 - 264 ng/mL 04/16/2024 20:14 EST [facility] Blood VENOUS BLOOD / Unknown Venipuncture / Unknown 04/16/2024 19:07 EST 04/16/2024 19:11 EST Narrative [facility] - 04/16/2024 20:14 EST The results of this assay can be falsely lowered due to the consumption of Biotin. Yocasta Mariam Cronin CHEMISTRY & BLOOD GA S ORDERABLES [facility] [address] [place] [address] from Last 3 Months Care Teams Inventory Worker Relationship Specialty Start Date End Date Yocasta Cronin [address] [facility] [place] [address] PCP - General Internal Medicine - Primary Care 12/22/19
--- OUTSIDE RECORDS SUMMARY | 2024-04-18 13:06 | XMS_ITS | Encounter Summary ---
Author Organization [facility] Address [address] [place] [address] Care Team Providers Care Auditor Appraiser Name Role Phone Yocasta Cronin Primary Care Provider [phone] Encounter Details Date Type Department Care Team (Latest Contact Info) Description 04/14/2024 Transcribe Orders [facility] Lab - Main [address] [id number] Yocasta Cronin [address] [place], [place] [address] Viral infection, unspecified (Primary Dx); Anemia, unspecified Social History Tobacco Use Types [...] as of this encounter Miscellaneous Notes * Addendum Note - Shreya Major - 04/14/2024 1837 ESTAddended by: ANTONIO MAJOR on: 04/16/2024 21:27 Modules accepted: Orders documented in this encounter Plan of Treatment Not on file documented as of this encounter Procedures Procedure Name Priority Date/Time Associated Diagnosis Comments LYME AB SCREEN, IGG AND IGM Add-On 04/16/2024 19:07 EST Viral infection, unspecified documented in this encounter Results * LYME AB SCREEN, IGG AND IGM (04/16/2024 19:07 EST) Lyme Antibody, IgG Negative Negative 04/17/2024 9:21 EST [facility] Lyme Antibody, IgM Negative Negative 04/17/2024 9:21 EST [facility] Blood VENOUS BLOOD / Unknown Venipuncture / Unknown 04/16/2024 19:07 EST 04/16/2024 19:11 EST Yocasta [employer]I BALDERRAMA ORDERABLES Performing Organization Address City/State/[facility] Co de Phone Number [facility] [address] [place] [address] * ANAPLASMA AND BABESIA TESTING BY PCR (04/16/2024 19:07 EST) Anaplasma phagocytophilum Negative Negative 04/18/2024 11:22 EST [facility] Babesia Species Negative Negative 11:22 EST [facility] Blood VENOUS BLOOD / Unknown Venipuncture / Unknown 04/16/2024 19:07 EST 04/16/2024 19:10 EST Narrative [facility] - 04/18/2024 11:22 EST This test was developed and its performance characteristics determined by [facility]. It has not been cleared or [...] Cronin CHEMISTRY & BLOOD GA S ORDERABLES [facility] [address] [place] [address] * (ABNORMAL) IRON (04/16/2024 19:07 EST) Iron 36(L) 37 - 170 ??g/dL 04/16/2024 19:33 EST [facility] Blood VENOUS BLOOD / Unknown Venipuncture / Unknown 04/16/2024 19:07 EST 04/16/2024 19:11 EST Yocasta Cronin CHEMISTRY & BLOOD GA S ORDERABLES Performing Organization Address City/[facility]/ZIP Co de Phone Number [facility] [address] [place] [address] * FERRITIN (04/16/2024 19:07 EST) Ferritin 11 11 - 264 ng/mL 04/16/2024 20:14 EST [facility] Blood VENOUS BLOOD / Unknown Venipuncture / Unknown 04/16/2024 19:07 EST 04/16/2024 19:11 EST Narrative [facility] - 04/16/2024 20:14 EST The results of this assay can be falsely lowered due to the consumption of Biotin. Yocasta Cronin CHEMISTRY & BLOOD GA S ORDERABLES Performing Organization Address City/[facility]/ZIP Co de Phone Number [facility] [address] [place] [address] * IBC (04/16/2024 19:07 EST) Iron Binding Capacity 366 240 - 450 ??g/dL 04/16/2024 19:42 EST [facility] Blood VENOUS BLOOD / Unknown Venipuncture / Unknown 04/16/2024 19:07 EST 04/16/2024 19:11 EST Yocasta Cronin CHEMISTRY & BLOOD GA S ORDERABLES [facility] [address] [place] [address] * (ABNORMAL) COMPLETE BLOOD COUNT AND DIFFERENTIAL (04/16/2024 19:07 [facility]) WBC 5.19 4.00 - 12.40 K/cmm 04/16/2024 19:23 [facility] RBC 4.20 3.86 - 5.04 M/cmm 04/16/2024 19:23 [facility] Hemoglobin 10.0(L) 11.6 - 15.2 g/dL 04/16/2024 19:23 [facility] HCT 31.3(L) 34.9 - 44.4 % 04/16/2024 19:23 [facility] MCV 75(L) 81 - 98 fL 04/16/2024 19:23 [facility] MCH 23.8(L) 26.7 - 33.3 pg 04/16/2024 19:23 [facility] Hypochromia 1+ 04/16/2024 19:23 [facility] MCHC 31.9(L) 32.1 - 35.9 g/dL 04/16/2024 19:23 [facility] RDW-CV 17.0(H) <14.7 % 04/16/2024 19:23 [facility] RDW-SD 45.6 <50.4 fl 04/16/2024 19:23 [facility] Anisocytosis 1+ 04/16/2024 19:23 [facility] PLT 374 141 - 377 K/cmm 04/16/2024 19:23 [facility] MPV 9.1(L) 9.5 - 12.7 fL 04/16/2024 19:23 [facility] % Neutrophils 71.9 Not Indicated % 04/16/2024 19:23 [facility] % Lymphocytes 17.3 Not Indicated % 04/16/2024 19:23 [facility] % Monocytes 9.6 Not Indicated % 04/16/2024 19:23 [facility] % Eosinophils 0.2 Not Indicated % 04/16/2024 19:23 [facility] % Basophils 0.6 Not Indicated % 04/16/2024 19:23 [facility] % Immature Grans 0.4 <0.9 % 04/16/20 19:23 [facility] Absolute Neutrophils 3.73 2.20 - 8.85 K/cmm 04/16/2024 19:23 [facility] Absolute Lymphocytes 0.90(L) 1.09 - 3.30 K/cmm 04/16/2024 19:23 [facility] Absolute Monocytes 0.50 0.10 - 0.80 K/cmm 04/16/2024 19:23 [facility] Absolute Eosinophils 0.01(L) 0.03 - 0.61 K/cmm 04/16/2024 19:23 [facility] ABS Basophils 0.03 0.01 - 0.11 K/cmm 04/16/2024 19:23 [facility] Absolute Immature Grans 0.02 0.00 - 0.06 K/cmm 04/16/2024 19:23 [facility] Type of Differential: Auto 04/16/2024 19:23 [facility] Blood VENOUS BLOOD / Unknown Venipuncture / Unknown 04/16/2024 19:07 EST 04/16/2024 19:10 EST Yocasta Cronin PACKAGES & DNA PROBE ORDERABLES [facility] [address] [place] [id number] documented in this encounter Visit Diagnoses Diagnosis Viral infection, unspecified- Primary Anemia, unspecified documented in this encounter Care Teams Auditor Appraiser Relationship Specialty Start Date End Date Yocasta Cronin [address] [place] [address] PCP - General Internal Medicine - Primary Care 12/22/19 documented as of this encounter
--- OUTSIDE RECORDS SUMMARY | 2024-04-18 13:06 | XMS_ITS | Encounter Summary ---
Author Organization [facility] Address [address] [place] [address] Care Team Providers Care Manager Equipment Name Role Phone Roseanne Yocasta Becerra Primary Care Provider Reason for Visit * Reason Onset Date Comments Other 12/27/2019 Covid-19 Call Ce nter Encounter Details Date Type Department Care Team ([facility] Contact Info) Description 12/27/2019 Telephone [facility] [address] [place] [id number] Tori John RN Other (Covid-19 Call Center) [...] documented as of this encounter Care Teams Manager Equipment Relationship Specialty Start Date End Date Yocasta Cronin [address] [place] [address] PCP - General Internal Medicine - Primary Care 12/22/19 documented as of this encounter
--- OUTSIDE RECORDS SUMMARY | 2024-04-18 13:06 | XMS_ITS | Clinical Summary ---
Author Organization [facility] Address [address] [place] [address] Care Team Providers Care Medication Administration Professional Name Role Phone Yocasta Cronin Primary Care Provider [phone] Allergies Active Allergy Reactions Criticality Noted Date Comments Penicillins Rash 04/16/2013 Unable To Assess 04/29/2014 Pollens Medications No known medications Active Problems No known active problems Encounters Date Type Department Care Team Description 04/16/2024 19:00 EST Phlebotomy Only [facility] - Outpatient Phlebotomy Drawing [address] [place] [address] Lab, [facility] Phlebotomy Viral infection, unspecified; Anemia, unspecified 04/14/2024 Transcribe Orders [facility] Lab - Main [place] [address] [place] [address] Yocasta Cronin Viral infection, unspecified (Primary Dx); Anemia, unspecified 04/01/2024 Telephone [facility] [place] [address] [facility], Appointment Related from Last 3 Months [...] - 19+ 3-dose series) 01/17 COVID-19 Vaccine ( season) 2024 Procedures Procedure Name Priority Date/Time Associated Diagnosis [...] SCREEN, IGG AND IGM (04/16/2024 19:07 EST) Pathologist [facility] Lyme Antibody, IgG Negative Negative 04/17/2024 9:21 EST [facility] Lyme Antibody, IgM Negative Negative 04/17/2024 9:21 EST [facility] Blood VENOUS BLOOD / Unknown Venipuncture / Unknown 04/16/2024 19:07 EST 04/16/2024 19:11 EST Yocasta Cronin IMMUNOLOGY AND SEROL OGY ORDERABLES Performing Organization Address [facility]/ZIP Co de Phone Number [facility] [address] [place] [address] * ANAPLASMA AND BABESIA TESTING BY PCR (04/16/2024 19:07 EST) [facility] Anaplasma phagocytophilum Negative Negative 04/18/2024 11:22 EST [facility] Babesia Species Negative Negative 11:22 EST [facility] Blood VENOUS BLOOD / Unknown Venipuncture / Unknown 04/16/2024 19:07 EST 04/16/2024 19:10 EST Narrative [facility] - 04/18/2024 11:22 EST This test was developed and its performance characteristics determined by [facility]. It has not been cleared [...] Cronin CHEMISTRY & BLOOD GA S ORDERABLES [facility] [address] [place], [place] [address] * IBC (04/16/2024 19:07 EST) [facility] Iron Binding Capacity 366 240 - 264 ??g/dL 04/16/2024 19:42 [facility] Blood VENOUS BLOOD / Unknown Venipuncture / Unknown 04/16/2024 19:07 EST 04/16/2024 19:11 EST Yocasta Mariam Cronin CHEMISTRY & BLOOD GA S ORDERABLES Performing Organization Address City/State/[facility] Co de Phone Number [facility] [address] [place] [address] * (ABNORMAL) COMPLETE BLOOD COUNT AND DIFFERENTIAL (04/16/2024 19:07 EST) WBC 5.19 4.00 - 12.40 K/cmm 04/16/2024 19:23 [facility] RBC 4.20 3.86 - 5.04 M/cmm 04/16/2024 19:23 [facility] Hemoglobin 10.0(L) 11.6 - 15.2 g/dL 04/16/2024 19:23 [facility] HCT 31.3(L) 34.9 - 44.4 % 04/16/2024 19:23 [facility] MCV 75(L) 81 - 98 fL 04/16/2024 19:23 [facility] MCH 23.8(L) 26.7 - 33.3 pg 04/16/2024 19:23 [facility] Hypochromia 1+ 04/16/2024 19:23 [facility] MCHC 31.9(L) 32.1 - 35.9 g/dL 04/16/2024 19:23 [facility] RDW-CV 17.0(H) <14.7 % 04/16/2024 19:23 [facility] RDW-SD 45.6 <50.4 fl 04/16/2024 19:23 [facility] Anisocytosis 1+ 04/16/2024 19:23 [facility] PLT 374 141 - 377 K/cmm 04/16/2024 19:23 [facility] MPV 9.1(L) 9.5 - 12.7 fL 04/16/2024 19:23 [facility] % Neutrophils 71.9 Not Indicated % 04/16/2024 19:23 [facility] % Lymphocytes 17.3 Not Indicated % 04/16/2024 19:23 [facility] % Monocytes 9.6 Not Indicated % 04/16/2024 19:23 [facility] % Eosinophils 0.2 Not Indicated % 04/16/2024 19:23 [facility] % Basophils 0.6 Not Indicated % 04/16/2024 19:23 [facility] % Immature Grans 0.4 <0.9 % 04/16/20 19:23 [facility] Absolute Neutrophils 3.73 2.20 - 8.85 K/cmm 04/16/2024 19:23 [facility] Absolute Lymphocytes 0.90(L) 1.09 - 3.30 K/cmm 04/16/2024 19:23 [facility] Absolute Monocytes 0.50 0.10 - 0.80 K/cmm 04/16/2024 19:23 [facility] Absolute Eosinophils 0.01(L) 0.03 - 0.61 K/cmm 04/16/2024 19:23 [facility] ABS Basophils 0.03 0.01 - 0.11 K/cmm 04/16/2024 19:23 [facility] Absolute Immature Grans 0.02 0.00 - 0.06 K/cmm 04/16/2024 19:23 [facility] Type of Differential: Auto 04/16/2024 19:23 [facility] Blood VENOUS BLOOD / Unknown Venipuncture / Unknown 04/16/2024 19:07 EST 04/16/2024 19:10 EST Yocasta Cronin PACKAGES & DNA PROBE ORDERABLES [facility] [address] [place] [address] * (ABNORMAL) IRON (04/16/2024 19:07 EST) Iron 36(L) 37 - 170 ??g/dL 04/16/2024 19:33 EST [facility] Blood VENOUS BLOOD / Unknown Venipuncture / Unknown 04/16/2024 19:07 EST 04/16/2024 19:11 EST Yocasta Cronin CHEMISTRY & BLOOD GA S ORDERABLES Performing Organization Address City/[facility]/ZIP Co de Phone Number [facility] [address] [place] [address] * FERRITIN (04/16/2024 19:07 EST) Ferritin 11 11 - 264 ng/mL 04/16/2024 20:14 EST [facility] Blood VENOUS BLOOD / Unknown Venipuncture / Unknown 04/16/2024 19:07 EST 04/16/2024 19:11 EST Narrative [facility] - 04/16/2024 20:14 EST The results of this assay can be falsely lowered due to the consumption of Biotin. Yocasta Cronin CHEMISTRY & BLOOD GA S ORDERABLES Performing Organization Address City/[facility]/ZIP Co de Phone Number [facility] [address] [place] [address] from Last 3 Months Care Teams Medication Administration Professional Relationship Specialty Start Date End Date Yocasta Cronin [address] [place] [address] PCP - General Internal Medicine - Primary Care 12/22/19
--- OUTSIDE RECORDS SUMMARY | 2024-04-18 13:06 | XMS_ITS | Encounter Summary ---
Author Organization [facility] Address [address] [place] [address] Care Team Providers Care Fast Food Cashier Name Role Phone Yocasta Cronin Primary Care Provider [phone] Encounter Details Date Type Department Care Team (Late st Contact Info) Description 10/17/2023 Lab Requisition [facility] Pathology & Laboratory Medicine - [address] [address] Yocasta Cronin [address] [place], [place] [address] Encounter for screening for malignant neoplasm of [...] types, PCR Negative Negative 10/23/2023 18:25 EDT [facility] Comment:No E6 or E7 mRNA is detected from HPV types 16,18,31,33,35,39,45,51,52,56,58,59,66, and 68 by car wash supervisor mediated amplification. Pap Test CERVIX UTERI STRUCTURE / Unknown 10/12/2023 14:45 EDT 10/23/2023 9:34 EDT Yocasta Cronin MICROBIOLOGY - [facility] AL ORDERABLES [facility] [address] [place] [address] * PAP TEST (10/12/2023 14:45 EDT) Specimens A. Cervix and/or Endocervix , ThinPrep Imaging System with Manual Evaluation 10/23/2023 18:25 T [facility] Specimen Adequacy Satisfactory for Evaluation - transformation zone component present 10/23/2023 18:25 EDT [facility] General Categorization Negative for intraepithelial lesion or malignancy 10/23/2023 18:25 [facility] Attestation . 10/23/2023 18:25 [facility] at 1825 Clinical History SEE BELOW 10/23/19 18:25 T [facility] HPV The result for the Human Papillomavirus (HPV) Detection-High Risk Types is Negative. No E6 or E7 mRNA is detected from HPV types 16,18,31,33,35,39 ,45,51,52,56,58,5 9,66, and 68 by car wash supervisor mediated amplification.Jasmin ting was performed on specimen [id number] and was resulted on 10/23/2023 1825 EDT by MARY, LAB INSTRUMENT RESULTS IN 10/23/2023 18:25 EDT [facility] Performing Lab [facility] 10/23/2023 18:25 EDT [facility] Scanned Images 10/23/2023 18:25 EDT [facility] Pap Test CERVIX UTERI STRUCTURE / Unknown 10/12/2023 14:45 EDT 10/17/2023 10:13 EDT Yocasta Cronin PATHOLOGY ORDERABLES Performing Organization Address City/State/[facility] Co de Phone Number [facility] [address] [place], [place] [address] documented in this encounter Visit Diagnoses Diagnosis Encounter for screening for malignant neoplasm of cervix Screening for malignant neoplasm of the cervix Encounter for general adult medical examination without abnormal findings Unspecified general medical examination documented in this encounter Care Teams Fast Food Cashier Relationship Specialty Start Date End Date Yocasta Cronin [address] [place] [address] PCP - General Internal Medicine - Primary Care 12/22/19 documented as of this encounter
--- OUTSIDE RECORDS SUMMARY | 2024-04-18 13:06 | XMS_ITS | Encounter Summary ---
Author Organization [facility] Address [address] [place] [address] Care Team Providers Care Cashier And Waiter/Waitress Name Role Phone Roseanne Yocasta Becerra Primary Care Provider [phone] Encounter Details Date Type Department Care Team (Late st Contact Info) Description 10/15/2023 Lab Requisition [facility] Pathology & Laboratory Medicine - [address] [phone] Outr Resulting Lab, Provider Social History Tobacco [...] gonorrhoeae Result Negative Negative 10/16/2023 16:24 EDT [facility] Chlamydia trachomatis Result Negative Negative 10/16/2023 16:24 EDT [facility] Pap Test CERVIX UTERI STRUCTURE / Unknown 10/12/2023 14:45 EDT 10/16/2023 8:44 EDT Provider Outr Resulting Lab MICROBIOLOGY - GENERAL ORDERABLES [facility] [address] [place], [place] [address] documented in this encounter Visit Diagnoses Not on filedocumented in this encounter Care Teams Cashier And Waiter/Waitress Relationship Specialty Start Date End Date Yocasta Cronin [address] [place] [address] PCP - General Internal Medicine - Primary Care 12/22/19 documented as of this encounter
--- OUTSIDE RECORDS SUMMARY | 2024-04-18 13:06 | XMS_ITS | Encounter Summary ---
Author Organization [facility] Address [address] [place] [address] Care Team Providers Care Car Starter Name Role Phone Nataliia Marley MD Primary Care Provider [phone] Encounter Details Date Type Department Care Team (Late st Contact Info) Description 12/19/2017 Results Only [facility]- PRISM [phone] Kimmie Peterson MD [address] [place] [phone] Social History Tobacco Use Types Packs/Day Years [...] ? LUIZ BRADLEY ? Accession #: ? [id number] : ? 1990 (Age: 27) ??F ?Collect [...] Report Date: ??01/01/2018 09:38 End of Report [facility] 12/19/2017 12/21/2017 Kimmie Peterson MD PATHOLOGY ORD ERABLES [facility] [address] [place] [address] documented in this encounter Visit Diagnoses Not on filedocumented in this encounter Care Teams Car Starter Relationship Specialty Start Date End Date Nataliia Marley MD [address] [place] [phone] PCP - General 09/26/10 12/21/19 documented as of this encounter
--- OUTSIDE RECORDS SUMMARY | 2024-04-18 13:07 | XMS_ITS | Encounter Summary ---
Author Organization [facility] Address [address] [place] [address] Care Team Providers Care Press Operator Helper Name Role Phone Nataliia Marley MD Primary Care Provider [phone] Encounter Details Date Type Department Care Team (Late st Contact Info) Description 07/31/2016 7:17 EST - 07/31/2016 12:02 EST Hospital Encounter [facility] Clinical Research Unit - [address] [phone] Suresh Sanchez MD [address] [facility], [address] [place] [address] Discharge Disposition: Home or Self [...] by mouth daily. Reported on 10/20/2016 07/19/2019 haqvzmju-cbznfyynd-xiazs ethasone (MAXITROL) ophthalmic ointmentIndications:Chal azion left upper [...] EST) 08/11/2016 10:2 3 EST Scan 2 Supervisor Warping Department PROCEDURE/MINOR MARTHA GICAL ORDERABLES * ORDERS - SCANNED (08/04/2016 11:52 EST) 08/04/2016 11:5 2 EST Scan 2 Supervisor Warping Department ADMISSION ORDERABLE S * ECG REPORT - SCANNED (08/02/2016 12:34 EST) 08/02/2016 12:3 4 EST Scan 2 Supervisor Warping Department PROCEDURE/MINOR MARTHA GICAL ORDERABLES * (ABNORMAL) HEMAGRAM (07/31/2016 9:12 EST) WBC 3.70(L) 4.0 - 12.4 K/cmm 07/31/2016 10:01 [facility] RBC 4.12 3.86 - 5.04 M/cmm 07/31/2016 10:01 [facility] Hemoglobin 11.5(L) 11.6 - 15.2 gm/dl 07/31/2016 10:01 [facility] HCT 34.4(L) 34.9 - 44.4 % 07/31/2016 10:01 [facility] MCV 84 81 - 98 fl 07/31/2016 10:01 [facility] MCH 27.9 26.7 - 33.3 pg 07/31/2016 10:01 [facility] MCHC 33.4 32.1 - 35.9 gm/dl 07/31/2016 10:01 [facility] RDW-CV 13.4 11.7 - 14.6 % 07/31/2016 10:01 [facility] RDW-SD 40.7 37.6 - 50.3 fl 07/31/2016 10:01 [facility] PLT 200 141 - 377 K/cmm 07/31/2016 10:01 [facility] MPV 10.6 9.5 - 12.7 fl 07/31/2016 10:01 [facility] BLOOD SPECIMEN / Unknown 07/31/2016 9:12 EST 07/31/2016 9:38 EST Florinda Bee MD HEMATOLOGY & PF4 ORD ERABLES Performing Organization Address City/State/[facility] Co de Phone Number [facility] [address] [place] [address] documented in this encounter Visit Diagnoses Not on filedocumented in this encounter Care Teams Press Operator Helper Relationship Specialty Start Date End Date Nataliia Marley MD [address] [place] [phone] PCP - General 09/26/10 12/21/19 documented as of this encounter
--- OUTSIDE RECORDS SUMMARY | 2024-04-18 13:07 | XMS_ITS | Encounter Summary ---
Author Organization [facility] Address [address] [place] [address] Care Team Providers Care Convenience Recycle Center Tech Name Role Phone Nataliia Marley MD Primary Care Provider [phone] Reason for Visit * Reason Comments Eye Problem bump on upper left e yelid, since november * Consult (Routine) - Closed Specialty Diagnoses / Procedures Referred By Chandan white Referred To Contact Marcy Bergman MD [address] [place] [phone] Meaghan Koroma MD [address] [place] [phone] Referral ID Status Reason Start Date Expiration Date Visits Re quested Visits Authorized [id number] Closed 1 1 Encounter Details Date Type Department Care Team ([facility] Contact Info) Description 02/21/2016 9:30 EDT Office Visit [facility] Ophthalmology - [address] [phone] Meaghan Koroma MD [address] [place] [phone] Social History Tobacco Use Types Packs/Day [...] warm compresses without relief. Was seen by student health and referred here. History of external styes that went away. Pt feels that it is starting to affect vision in the left eye slightly. ROS Constitutional: ENT/Mouth NL Cardiovascular: NL Respiratory: (asthma) Gastrointestinal: NL Genitourinary: NL Musculoskeletal: NL Integumentary: NL Neurologic: NL Psychiatric: NL Endocrine: NL Hematologic: NL Immunologic: (dust, rag weed) Infection Prevention Coordinator: NL Exposures: None Other: Attestation: Allergies include: [...] my own HPI and have reviewed the tech's ROS as well. I personally completed this [...] 0.2 0.2 Macula Normal Normal Care Teams Convenience Recycle Center Tech Relationship Specialty Start Date End Date Nataliia Marley MD [address] [facility] [place] [address] PCP - General 09/26/10 12/21/19 documented as of this encounter
--- OUTSIDE RECORDS SUMMARY | 2024-04-18 13:07 | XMS_ITS | Encounter Summary ---
Author Organization [facility] Address [address] [place] [address] Care Team Providers Care Retail Client Solutions Analyst Name Role Phone Nataliia Marley MD Primary Care Provider [phone] Reason for Visit * Reason Comments Skin Exam FBSE and patient rep orts there is a mole of concern on her buttocks. Encounter Details Date Type Department Care Team (Late st Contact Info) Description 08/15/2016 15:15 EST Office Visit [facility] Dermatology 5th Floor [facility] [address] [place] [address] Patsy Lopes MD [address] [place], [place] [phone] Aguilar Graves MD [address] [place] [address] Atypical nevus of buttock (Primary Dx) Social [...] 15:13 * Aguilar Graves MD - 08/15/2016 3112 EST Resident Clinic: Dermatology Outpatient Visit Note [...] includes the following prescription(s): clindamycin, desog-e.estradiol/e.estradiol, and kdvtiquy-hudbkbnmk-malhjwesghylv. 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 Family history of melanoma in first [...] scrotum documented in this encounter Care Teams Retail Client Solutions Analyst Relationship Specialty Start Date End Date Nataliia Marley MD [address] [place] [phone] PCP - General 09/26/10 12/21/19 documented as of this encounter
--- OUTSIDE RECORDS SUMMARY | 2024-04-18 13:07 | XMS_ITS | Encounter Summary ---
Author Organization [facility] Address [address] [place] [address] Care Team Providers Care Water Resource Project Manager Name Role Phone Unavailable Primary Care Provider Unavailabl e Encounter Details Date Type Department Care Team (Late st Contact Info) Description 02/25/2008 Before PRISM Converted Visit (Maple) [facility] - Maple conversion [address] [place] [address] Svitlana Sena MD [address] [place] [phone] Social History Tobacco Use Types Packs/Day Years [...] 01/02/2009 0535 EDT DIVISION OF DERMATOLOGY - [facility] NEW PATIENT EVALUATION - 02/25/2008 CHIEF COMPLAINT [...] easily. She s pent some time in [place] this summer and got quite a burn [...] - MD Jaida - DAI Job ID: [id number] Doc ID: [id number] cc: KENYON Bolivar MD documented in this encounter
--- OUTSIDE RECORDS SUMMARY | 2024-04-18 13:07 | XMS_ITS | Encounter Summary ---
Author Organization [facility] [place] [address] Care Team Providers Care Casino Cage Manager Name Role Phone None Primary Care Provider Unavailabl e Encounter Details Date Type Department Care Team (Late st Contact Info) Description 04/02/2017 8:07 AM EDT - 04/02/2017 10:13 AM EDT Emergency [place] [address] Marcelo Oconnell MD [facility] DR EMER[place] [address] Near syncope Discharge Disposition: Home Social History [...] Velásquez MD - 04/02/2017 9:34 AM EDT [facility] Lightheadedness or Faintness: Care Instructions Your [...] irregular heartbeat. After you call 911, the oven operator may tell you to chew 1 adult-strength or 2 to 4 low-dose aspirin. Wait for an ambulance. Do not try to drive yourself. Watch closely for changes in your health, and be sure to contact your doctor if: ?? Your lightheadedness gets worse or does not get better with home care. Where can you learn more? Visit our health information library at [email or web address]. You can also view health information on [employer], your personal patient account. Log in or sign uptoday. Enter X578 in the search box to learn more about Lightheadedness or Faintness: Care Instructions. Current as of: August 28, 2016 Content Version: 11.3 ?? [id number] [employer]. Care instructions adapted under license by [facility]. If you have questions about a medical condition or this instruction, always ask your healthcare professional. [employer] disclaims any warranty or liability for your [...] saw this patient 04/02/2017 at 4:48 PM [facility] Brittani Bradley is a 27 y.o. [...] precautions discussed Ashok Velásquez MD Resident 04/02/17 0620 Associated attestation - Marcelo Oconnell MD - [...] (Bezet) 374 ms MUSE SYSTEM Calculated P [place] 54 degrees MUSE SYSTEM Calculated R [place] 97 degrees MUSE SYSTEM Calculated T [place] 69 degrees MUSE SYSTEM INTERPRETATION Marked sinus bradycardia Rightward axis Septal infarct , age undetermined Abnormal ECG No previous ECGs available Confirmed by Tico Arvizu MD ([id number]) on 04/02/2017 3:41:01 PM MUSE SYSTEM 04/02/2017 8:53 AM EDT 04/02/2017 3:41 PM EDT Marcelo Oconnell MD ECG ORDERABLES MUSE SYSTEM * POCT Glucose (04/02/2017 8:15 AM EDT) Glucose, POC 96 65 - 199 mg/dL [facility] Comment: Supplemental ranges: <140 mg/dL before meals <180 mg/dL all other times of the day Blood specimen (specimen) 04/02/2017 8:15 AM EDT 04/02/2017 8:15 AM EDT Emergency Dept POINT OF CARE TEST ORDERABLES [facility] [place] [address] * POCT urine (04/02/2017) POC Urine HCG Negative Negative - Negative POC Control Internal Controls Acceptable 04/02/2017 Marcelo Oconnell MD POINT OF CARE TEST ORDERABLES documented in this encounter Visit Diagnoses Diagnosis Near syncope Syncope and collapse documented in this encounter Active and Recently Administered Medications Care Teams Casino Cage Manager Relationship Specialty Start Date End Date None None PCP - General 06/11/16 documented as of this encounter
--- OUTSIDE RECORDS SUMMARY | 2024-04-18 13:07 | XMS_ITS | Encounter Summary ---
Author Organization [facility] Address [address] [place] [address] Care Team Providers Care Sport Internship Name Role Phone Nataliia Marley MD Primary Care Provider [phone] Encounter Details Date Type Department Care Team (Late st Contact Info) Description 01/25/2015 Results Only [facility]- PRISM [phone] Kimmie Peterson MD [address] [place] [phone] Social History Tobacco Use Types Packs/Day Years [...] ? LUIZ BRADLEY ? Accession #: ? [id number] : ? 1990 (Age: 25) ??F ?Collect [...] Report Date: ??02/01/2015 13:16 End of Report [facility] 01/25/2015 01/28/2015 Kimmie Peterson MD PATHOLOGY ORD ERABLES [facility] [address] [place] [address] documented in this encounter Visit Diagnoses Not on filedocumented in this encounter Care Teams Sport Internship Relationship Specialty Start Date End Date Nataliia Marley MD [address] [place] [phone] PCP - General 09/26/10 12/21/19 documented as of this encounter
--- OUTSIDE RECORDS SUMMARY | 2024-04-18 13:07 | XMS_ITS | Encounter Summary ---
Author Organization [facility] Address [address] [place] [address] Care Team Providers Care Brazing Machine Feeder Name Role Phone Nataliia Marley MD Primary Care Provider [phone] Encounter Details Date Type Department Care Team (Late st Contact Info) Description 03/25/2015 Phlebotomy Only [address] [address] Gun Numberer, Outpatient Social History Tobacco Use Types Packs/Day [...] on filedocumented in this encounter Care Teams Brazing Machine Feeder Relationship Specialty Start Date End Date Nataliia Marley MD [address] [place] [address] [place] [address] PCP - General 09/26/10 12/21/19 documented as of this encounter
--- OUTSIDE RECORDS SUMMARY | 2024-04-18 13:07 | XMS_ITS | Clinical Summary ---
Author Organization [facility] [place] [address] Care Team Providers Care Chuck Splitter Name Role Phone None Primary Care Provider [...] PAP Smear 01/17/2022 Covid-19 Vaccine (1 - 2023-25 season) 2024 Influenza (Flu) vaccine (1 o f 1 - Influenza standard series) 02/10/2024 Care Teams Chuck Splitter Relationship Specialty Start Date End Date None None PCP - General 06/11/16
--- OUTSIDE RECORDS SUMMARY | 2024-04-18 13:07 | XMS_ITS | Encounter Summary ---
Author Organization [facility] Address [address] [place] [address] Care Team Providers Care Metal Rivet Machine Operator Name Role Phone Nataliia Marley MD Primary Care Provider Encounter Details Date Type Department Care Team (Latest Contact Info) Description 07/12/2015 18:53 EST - 07/12/2015 23:59 EST Hospital Encounter [address] [address] Nataliia Marley MD [address] [place] [phone] Discharge Disposition: Home or Self Care [...] Code Departure Means Destination Home or Self Jail documented in this encounter Plan of Treatment Not on file documented as of this encounter Visit Diagnoses Not on filedocumented in this encounter Care Teams Metal Rivet Machine Operator Relationship Specialty Start Date End Date Nataliia Marley MD [address] [place] [address] PCP - General 09/26/10 12/21/19 documented as of this encounter
--- OUTSIDE RECORDS SUMMARY | 2024-04-18 13:07 | XMS_ITS | Encounter Summary ---
Author Organization [facility] Address [address] [place] [address] Care Team Providers Care Loan Clerk Name Role Phone Nataliia Marley MD Primary Care Provider [phone] Reason for Visit * Reason Comments Follow-up Planning left upper eyelid chalazion incision and drainage. Encounter Details Date Type Department Care Team ([facility] Contact Info) Description 04/11/2016 14:[address] [facility] Ophthalmology - [address] [address] Meaghan Koroma MD [address] [place] [address], [address] [place] [address] Social History Tobacco Use Types [...] Dispensed Refills Start Date End Da te perhqwfq-lxoqbwewx-vtehuyx hasone (MAXITROL) ophthalmic ointmentIndications:Chalaz ion left upper [...] Primary documented in this encounter Care Teams Loan Clerk Relationship Specialty Start Date End Date Nataliia Marley MD [address] [place] [address] PCP - General 09/26/10 12/21/19 documented as of this encounter
--- OUTSIDE RECORDS SUMMARY | 2024-04-18 13:07 | XMS_ITS | Encounter Summary ---
Author Organization [facility] Address [address] [place] [address] Care Team Providers Care Thermal Cutter Hand Name Role Phone Nataliia Marley MD Primary Care Provider [phone] Yocasta Cronin Primary Care Provider [phone] Reason for Referral * Cardiology (Routine) - Closed Specialty Diagnoses / Procedures [facility] Referred To Contact Diagnoses Patient in clinical research study Procedures EKG 12-LEAD Karen Pineda MD [address] [place] [phone] Referral ID Status Reason Start Date Expiration Date Visits Re quested Visits Authorized [id number] Closed 07/28/2016 1 1 Encounter Details Date Type Department Care Team ([facility] st Contact Info) Description 07/28/2016 Orders Only [facility] Cardiology - [address] [phone] Karen Pineda MD [address] [place] [phone] Patient in clinical research study (Primary [...] (07/31/2016 8:16 EST) 07/31/2016 8:16 EST Narrative [facility] EKG - 07/31/2016 8:44 EST ? [facility] ? Test Date: ?2016-07-31 Pat Name: ? LUIZJeremias BRADLEY ? Department: ?? CRC ? Room: ? Gender: ? F ?Per Diem Interpreter: ?? [id number] : ?1990 ? Requested By: GREGG Corcoran Number: [id number] ? Reading MD: ?? SANJEEV AMADOR MD ? Measurements Intervals ?[place] ? Rate: ? 51 ? P: ?57 TN: ? 178 ?QRS: ?102 QRSD: ? 96 [...] Note Sanjeev Amador MD - 07/31/2016 [facility] Test Date: 2016-07-31 Pat Name: LUIZ BRADLEY Department: [facility] Room: Gender: F Per Diem Interpreter: [id number] : 1990 Requested By: GREGG Samuels Order Number: [id number] Reading MD: SANJEEV AMADOR MD Measurements Intervals [place] Rate: 51 P: 57 TN: 178 QRS: 102 QRSD: 96 T: 64 QT: 408 QTc: 378 Interpretive Statements SINUS BRADYCARDIA RIGHT AXIS DEVIATION SEPTAL QWAVES, POSSIBLY RELATED TO MEDIAL LEAD PLACEMENT No previous ECG available for comparison I reviewed the tracing and have either agreed or edited the findings inthis report. Electronically Signed On 07-31-16 08:44:33 EST by SANJEEV GARCIA. Karen Pineda MD CARDIAC ECG ORDERA BLES [facility] EKG documented in this encounter Visit Diagnoses Diagnosis Patient in clinical research study- Primary documented in this encounter Additional Health Concerns Infection Onset Date Last Indicated Resolved Time R/O COVID-19 12/22/2019 12/23/2019 12/28/2019 22:1 7 EDT documented as of this encounter Care Teams Thermal Cutter Hand Relationship Specialty Start Date End Date Nataliia Marley MD [address] [place] [address] PCP - General 09/26/10 12/21/19 Yocasta Cronin [address] [place] [address] PCP - General Internal Medicine - Primary Care 12/22/19 documented as of this encounter
--- OUTSIDE RECORDS SUMMARY | 2024-04-18 13:07 | XMS_ITS | Encounter Summary ---
Author Organization [facility] Address [address] [place] [address] Care Team Providers Care Slab Stripper Name Role Phone Nataliia Marley MD Primary Care Provider [phone] Reason for Visit * Reason Onset Date Comments Appointment Related 03/25/2013 Encounter Details Date Type Department Care Team ([facility] Contact Info) Description 03/25/2013 Telephone [facility] Dermatology 5th [address] [phone] Susan Bermudez MD Appointment Related Social History [...] on filedocumented in this encounter Care Teams Slab Stripper Relationship Specialty Start Date End Date Nataliia Marley MD 4 [facility] [place] [phone] PCP - General 09/26/10 12/21/19 documented as of this encounter
--- OUTSIDE RECORDS SUMMARY | 2024-04-18 13:07 | XMS_ITS | Encounter Summary ---
Author Organization [facility] [place] [address] Care Team Providers Care Machine Feeder Name Role Phone None Primary Care Provider Unavailabl e Encounter Details Date Type Department Care Team (Latest Contact Info) Description 04/29/2020 11:29 PM EST - 04/29/2020 11:59 PM EST [place] [address] Discharge Disposition: Home Social History Tobacco Use [...] EST) SARS-CoV-2 RNA Not Detected Not Detected [facility] Comment: This result should [...] diagnosis of COVID-19 is performed using the [employer] m SARS-CoV-2 Assay as authorized by the FDA Emergency Use Authorization (EUA). This EUA assay is intended for In-vitro Diagnostic (IVD) use with respiratory specimens such as nasopharyngeal swabs collected from individuals during the acute phase of infection. This assay is performed based on the instructions for use provided by [employer] and additional guidance provided by CDC and FDA. Testing is performed in the [facility] within the Department of Pathology and Laboratory Medicine at [facility], certified under the Clinical Laboratory Improvement Amendments [...] fact sheets at the following FDA website: https://www.fda.gov/medical-devices/yecntmonxtj-nkabrks-5495-pnljh-53-egsmrmxua- use-a srrbeohmencqc-idchtxi-zdojzhu/ypvgt-sayyjkdljoo-tjbb SARS-CoV-2 RNA Source DIGITAL [employer]ET[employer] Swab [facility] Nasopharyngeal swab (specimen) Other / Unknown 04/29/2020 2:00 PM EST 05/01/2020 5:34 PM EST Narrative Resulting Agency Comment Spec In Lab Yocasta Cronin MD MOLECULAR ORDERABLES Performing Organization Address City/State/[facility] Co de Phone Number [facility] [place] [address] documented in this encounter Visit Diagnoses Not on filedocumented in this encounter Care Teams Machine Feeder Relationship Specialty Start Date End Date None None PCP - General 06/11/16 documented as of this encounter
--- OUTSIDE RECORDS SUMMARY | 2024-04-18 13:07 | XMS_ITS | Encounter Summary ---
Author Organization [facility] Address [address] [place] [address] Care Team Providers Care Marine Underwriter Name Role Phone Nataliia Marley MD Primary Care Provider [phone] Reason for Visit * Reason Onset Date Comments Biopsy Results 10/24/2016 Encounter Details Date Type Department Care Team ([facility] Contact Info) Description 10/24/2016 Telephone [facility] Dermatology 3rd Floor [address] [phone] Tiffanie Yarbrough MD PhD 111 [facility], [facility] 5 [place] [address] Biopsy Results Social History Tobacco [...] Telephone Encounter - Gabriela Urrutia - 10/24/2016 3219 EDT Spoke with patient regarding biopsy results. She verbalized understanding and had no further questions at this time. Denied wanting to schedule FUR visit at this time. Gabriela Urrutia 10/24/2016 15:55 * Telephone Encounter - Sabrina Johnson - 10/24/2016 6829 EDT Patient returned call to obtain biopsy [...] up with me in 1 year. Tiffanie Yarborugh MD documented in this encounter Plan of Treatment Not on file documented as of this encounter Visit Diagnoses Not on filedocumented in this encounter Care Teams Marine Underwriter Relationship Specialty Start Date End Date Nataliia Marley MD [address] [place] [phone] PCP - General 09/26/10 12/21/19 documented as of this encounter
--- OUTSIDE RECORDS SUMMARY | 2024-04-18 13:07 | XMS_ITS | Encounter Summary ---
Author Organization [facility] Address [address] [place] [address] Care Team Providers Care Pot Pusher Name Role Phone Nataliia Marley MD Primary Care Provider [phone] Yocasta Cronin Primary Care Provider [phone] Reason for Visit * Reason Onset Date Comments Appointment Related 09/13/2016 Encounter Details Date Type Department Care Team (Late st Contact Info) Description 09/13/2016 Telephone [facility] Dermatology 3rd Floor [facility] [address] [place], [place] [phone] Aguilar Graves MD [address] [place] [address] Appointment Related Social History Tobacco Use Types [...] discuss and schedule. * Telephone Encounter - TonySagrario - 09/14/2016 1553 EDT Left message for [...] documented as of this encounter Care Teams Pot Pusher Relationship Specialty Start Date End Date Nataliia Marley MD [address] [place] [address] PCP - General 09/26/10 12/21/19 Yocasta Cronin [address] [place] [phone] PCP - General Internal Medicine - Primary Care 12/22/19 documented as of this encounter
--- OUTSIDE RECORDS SUMMARY | 2024-04-18 13:07 | XMS_ITS | Encounter Summary ---
Author Organization [facility] Address [address] [place] [address] Care Team Providers Care Medical Genetics Director Name Role Phone Nataliia Marley MD Primary Care Provider [phone] Reason for Visit * Reason Comments Follow-up mole removal buttock s Encounter Details Date Type Department Care Team ([facility] st Contact Info) Description 10/20/2016 9:40 EDT Office Visit [facility] Dermatology 3rd Floor [facility] [address] [place], [place] [address] Tiffanie Yarbrough MD PhD 111 [facility], Level 5 [place] [address] Neoplasm of uncertain behavior of [...] shower. DISCOMFORT: Extra-Strength Tylenol, as directed by hydraulic spinner, usually relieves any pain you may have. [...] Progress Notes * Gabriela Urrutia - 10/20/2016 6255 EDT Review of Systems Constitutional: Negative for [...] 10:00 * Tiffanie Yarbrough MD - 10/20/2016 9518 EDT SHAVE BIOPSY PATIENT INFORMATION: Luiz Mariam Mirna : MRN: [id number] SURGEON: Tiffanie Yarbrough MD 10/20/2016 10:04 The [...] ? LUIZ BRADLEY ? Accession #: ? [id number] ? : ? 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 10/20/2016 10/20/2016 documented as of this encounter Care Teams Medical Genetics Director Relationship Specialty Start Date End Date Nataliia Marley MD [address] [place] [phone] PCP - General 09/26/10 12/21/19 documented as of this encounter
--- OUTSIDE RECORDS SUMMARY | 2024-04-18 13:07 | XMS_ITS | Encounter Summary ---
Author Organization [facility] Address [address] [place] [address] Care Team Providers Care Floor Covering Layer Name Role Phone Nataliia Marley MD Primary Care Provider [phone] Encounter Details Date Type Department Care Team (Late st Contact Info) Description 04/16/2013 Results Only [facility] Dermatology 3rd Floor [address] [phone] Romeo Dumont MD 111 [facility], Level [address] [place] [address] Social History Tobacco Use Types [...] ? LUIZ BRADLEY ? Accession #: ? [id number] ? : ? 1990 (Age: 23) ??F [...] recurrent/persiste nt nevus. ??The patient's prior material ([id number]) has been reviewed in conjunction with the current specimen. (Dr. Vo)/mpl Microscopic Description: Sections consist of a shave [...] Dumont MD PATHOLOGY ORDERABLES Performing Organization Address City/State/[facility] Co de Phone Number [facility] [address] [place] [address] documented in this encounter Visit Diagnoses Not on filedocumented in this encounter Care Teams Floor Covering Layer Relationship Specialty Start Date End Date Nataliia Marley MD [address] [place] [phone] PCP - General 09/26/10 12/21/19 documented as of this encounter
--- OUTSIDE RECORDS SUMMARY | 2024-04-18 13:07 | XMS_ITS | Encounter Summary ---
Author Organization [facility] Address [address] [place] [address] Care Team Providers Care Marketing Programs Manager Name Role Phone Nataliia Marley MD Primary Care Provider [phone] Reason for Visit * Reason Onset Date Comments Biopsy Results 04/21/2013 Returning Call 04/21/2013 biopsy results Encounter Details Date Type Department [facility] ([facility] Contact Info) Description 04/21/2013 Telephone [facility] Dermatology 5th [address] [phone] Susan Bermudez MD Biopsy Results; Returning Call [...] Encounter - Susan Bermudez MD - 04/21/2013 9451 EST I called Brittani to discuss her [...] on filedocumented in this encounter Care Teams Marketing Programs Manager Relationship Specialty Start Date End Date Nataliia Marley MD 4 [facility] [place] [phone] PCP - General 09/26/10 12/21/19 documented as of this encounter
--- OUTSIDE RECORDS SUMMARY | 2024-04-18 13:07 | XMS_ITS | Encounter Summary ---
Author Organization [facility] Address [address] [place] [address] Care Team Providers Care Increment Manager Name Role Phone Nataliia Marley MD Primary Care Provider [phone] Reason for Visit * Reason Onset Date Comments New/Evolving Symptoms 05/22/2014 Encounter Details Date Type Department Care Team ([facility] Contact Info) Description 05/22/2014 Telephone [facility] Dermatology 3rd Floor [address] [phone] Susan Bermudez MD New/Evolving Symptoms Social History [...] on filedocumented in this encounter Care Teams Increment Manager Relationship Specialty Start Date End Date Nataliia Marley MD [address] [place] [address] PCP - General 09/26/10 12/21/19 documented as of this encounter
--- OUTSIDE RECORDS SUMMARY | 2024-04-18 13:07 | XMS_ITS | Encounter Summary ---
Author Organization [facility] Address [address] [place] [address] Care Team Providers Care Road Worker Name Role Phone Nataliia Marley MD Primary Care Provider [phone] Yocasta Cronin Primary Care Provider [phone] Reason for Referral * Cardiology (Routine) - Closed Specialty Diagnoses / Procedures [facility] Referred To Contact Diagnoses Examination of participant in clinical trial Procedures EKG 12-LEAD Sanjeev Amador MD [address] [place] [address] Referral ID Status Reason Start Date Expiration Date Visits Re quested Visits Authorized [id number] Closed 08/01/2016 1 1 Encounter Details Date Type Department Care Team (Late st Contact Info) Description 08/01/2016 Orders Only [facility] Cardiology - Main [address] [address] Sanjeev Amador MD [address] [place] [address] Examination of participant in clinical [...] 11:26 EST) 07/31/2016 11:2 6 EST Narrative [facility] EKG - 08/10/2016 13:19 EST ? [facility] ? Test Date: ?2016-07-31 Pat Name: ? LUIZ BRADLEY ? Department: ?? CRC ? Room: ? Gender: ? F ?Tie Tamper: ?? [id number] : ?1990 ? Requested By: MARJORIE DIEGO Order Number: [id number] ? Roe HOWELL: ?? SANJEEV AMADOR MD ? Measurements Intervals ?[place] ? Rate: ? 54 ? P: ?57 MA: ? 172 ?QRS: ?104 QRSD: ? 92 [...] Note Sanjeev Amador MD - 08/10/2016 [facility] Test Date: 2016-07-31 Pat Name: LUIZ BRADLEY Department: [facility] Room: Gender: F Tie Tamper: [id number] : 1990 Requested By: MARJORIE DIEGO Order Number: [id number] Roe MD: SANJEEV AMADOR MD Measurements Intervals [place] Rate: 54 P: 57 MA: 172 QRS: 104 QRSD: 92 T: 60 QT: 409 QTc: 391 Interpretive Statements SINUS BRADYCARDIA WITH SINUS ARRHYTHMIA MARKED RIGHT AXIS DEVIATION Compared to ECG 07/31/2016 08:16:35 Sinus arrhythmia now present I reviewed the tracing and have either agreed or edited the findings inthis report. Electronically Signed On 08-10-16 13:19:48 EST by SANJEEV GARCIA. Sanjeev Amador MD CARDIAC ECG ORDERA BLES [facility] EKG documented in this encounter Visit Diagnoses Diagnosis Examination of participant in clinical trial- Primary documented in this encounter Additional Health Concerns Infection Onset Date Last Indicated Resolved Time R/O COVID-19 12/22/2019 12/23/2019 12/28/2019 22:1 7 EDT documented as of this encounter Care Teams Road Worker Relationship Specialty Start Date End Date Nataliia Marley MD [address] [place] [phone] PCP - General 09/26/10 12/21/19 Yocasta Cronin [address] [place] [address] PCP - General Internal Medicine - Primary Care 12/22/19 documented as of this encounter
--- OUTSIDE RECORDS SUMMARY | 2024-04-18 13:07 | XMS_ITS | Encounter Summary ---
Author Organization [facility] Address [address] [place] [address] Care Team Providers Care Arbor Press Operator Name Role Phone Nataliia Marley MD Primary Care Provider [phone] Encounter Details Date Type Department Care Team (Late st Contact Info) Description 08/15/2013 11:09 EST - 08/15/2013 11:10 EST Hospital Encounter [address] [address] Gabi Rajput MD 111 [facility], Level [address] [place] [phone] Discharge Disposition: Home or Self Care Social [...] Code Departure Means Destination Home or Self Mcfp documented in this encounter Plan of Treatment Not on file documented as of this encounter Visit Diagnoses Not on filedocumented in this encounter Care Teams Arbor Press Operator Relationship Specialty Start Date End Date Nataliia Marley MD [address] [place] [phone] PCP - General 09/26/10 12/21/19 documented as of this encounter
--- OUTSIDE RECORDS SUMMARY | 2024-04-18 13:07 | XMS_ITS | Encounter Summary ---
Author Organization [facility] Address [address] [place] [address] Care Team Providers Care Court Crier Name Role Phone Nataliia Marley MD Primary Care Provider [phone] Yocasta Cronin Primary Care Provider [phone] Encounter Details Date Type Department Care Team ([facility] Contact Info) Description 10/20/2016 Telephone [facility] Dermatology 3rd Floor [facility] [address] [place], [place] [phone] Tiffanie Yarbrough MD PhD 111 [facility], Level [address] [place] [address] Social History Tobacco Use Types [...] documented as of this encounter Care Teams Court Crier Relationship Specialty Start Date End Date Nataliia Marley MD [address] [place] [address] [place] [phone] PCP - General 09/26/10 12/21/19 Yocasta Cronin [address] [place] [address] PCP - General Internal Medicine - Primary Care 12/22/19 documented as of this encounter
--- OUTSIDE RECORDS SUMMARY | 2024-04-18 13:07 | XMS_ITS | Encounter Summary ---
Author Organization [facility] Address [address] [place] [address] Care Team Providers Care Chief Security And Safety Officer Name Role Phone Nataliia Marley MD Primary Care Provider [phone] Encounter Details Date Type Department Care Team (Late st Contact Info) Description 07/31/2016 Results Only Imaging [facility] Obstetrics & Midwifery - [address] [phone] Karen Pineda MD 111 [facility], Level [address] [place] [phone] Social History Tobacco Use Types Packs/Day Years [...] filedocumented in this encounter Care Teams Chief Security And Safety Officer Relationship Specialty Start Date End Date Nataliia Marley MD [address] [place] [phone] PCP - General 09/26/10 12/21/19 documented as of this encounter
--- OUTSIDE RECORDS SUMMARY | 2024-04-18 13:07 | XMS_ITS | Encounter Summary ---
Author Organization [facility] Address [address] [place] [address] Care Team Providers Care Enamel Pulverizer Name Role Phone Nataliia Marley MD Primary Care Provider Reason for Visit * Reason Comments Knee Pain right * Consult, Test and Treat (Routine) - Closed Specialty Diagnoses / Procedures Referred By Chandan white Referred To Contact Orthopedic Surgery Diagnoses Right knee pain Elaine Hodgson DNP CN CUSTOMER ADVISOR [address] [place] [address] Alin Eller MD [address] [place] [address] Referral ID Status Reason Start Date Expiration Date Visits Re quested Visits Authorized [id number] Closed 1 1 Encounter Details Date Type Department Care Team (Late st Contact Info) Description 09/03/2015 13:30 EDT Office Visit [facility] Sports Medicine Program [place] [place] [address] Alin Eller MD [address] [place] [phone] Rupture of anterior cruciate ligament of [...] to expect as an outpatient surgical patient -[facility] Info Signature: Rose Mary Narvaez RN * Alin Eller MD - 09/03/2015 1413 EDT Brittani Bradley is a new patient to see me today. She states that she injured her knee about 2 years ago playing soccer in [place]. 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 She enjoys yoga, biking and gym exercise. [...] My plan will be for ACL reconstruction, xypu-tleitr-ywwi autograft. The procedure, risks, and benefits were [...] Primary documented in this encounter Care Teams Enamel Pulverizer Relationship Specialty Start Date End Date Nataliia Marley MD [address] [place] [address] [place] [address] PCP - General 09/26/10 12/21/19 documented as of this encounter
--- OUTSIDE RECORDS SUMMARY | 2024-04-18 13:07 | XMS_ITS | Encounter Summary ---
Author Organization [facility] Address [address] [place] [address] Care Team Providers Care Swing Type Lathe Operator Name Role Phone Nataliia Marley MD Primary Care Provider [phone] Encounter Details Date Type Department Care Team (Late st Contact Info) Description 08/15/2013 11:11 EST - 08/15/2013 23:59 EST Hospital Encounter [address] [address] Gabi Rajput MD 111 [facility], Level [address] [place] [phone] Discharge Disposition: Home or Self Care Social [...] on filedocumented in this encounter Care Teams Swing Type Lathe Operator Relationship Specialty Start Date End Date Nataliia Marley MD [address] [place] [phone] PCP - General 09/26/10 12/21/19 documented as of this encounter
--- OUTSIDE RECORDS SUMMARY | 2024-04-18 13:07 | XMS_ITS | Encounter Summary ---
Author Organization [facility] Address [address] [place] [address] Care Team Providers Care Wellness Educator Name Role Phone Nataliia Marley MD Primary Care Provider [phone] Encounter Details Date Type Department Care Team (Late st Contact Info) Description 08/18/2013 Results Only [facility] Pulmonology & Critical Care - [address] [phone] Gabi Rajput MD 111 [facility], Level [address] [place] [address] Social History Tobacco Use Types [...] CHEMISTRY & BLOO D GAS ORDERABLES [facility] [address] [place] [address] documented in this encounter Visit Diagnoses Not on filedocumented in this encounter Care Teams Wellness Educator Relationship Specialty Start Date End Date Nataliia Marley MD [address] [place] [phone] PCP - General 09/26/10 12/21/19 documented as of this encounter
--- OUTSIDE RECORDS SUMMARY | 2024-04-18 13:07 | XMS_ITS | Encounter Summary ---
Author Organization [facility] Address [address] [place] [address] Care Team Providers Care Table Games Floor Supervisor Name Role Phone Unavailable Primary Care Provider Unavailabl e Encounter Details Date Type Department Care Team (Late st Contact Info) Description 09/21/2010 Results Only [facility] Laboratory Services - [facility] ([facility]) [address] [place], [place] [address] Nataliia Charles MD [address] [place] [phone] Social History Tobacco Use Types Packs/Day Years [...] MIRNA, LUIZ R ? Accession #: ? [id number] ? : ? 1990 (Age: 20) ??F [...] the histologic features may not be ? pest control service representative of the entire lesion. ??(Dr. Holly)/mms [...] 54 EDT Nataliia Charles MD PATHOLOGY ORDERABLES [facility] [address] [place] [phone] documented in this encounter Visit Diagnoses Not on filedocumented in this encounter
--- OUTSIDE RECORDS SUMMARY | 2024-04-18 13:07 | XMS_ITS | Encounter Summary ---
Author Organization [facility] Address [address] [place] [address] Care Team Providers Care Tearer Name Role Phone Nataliia Marley MD Primary Care Provider [phone] Encounter Details Date Type Department Care Team (Latest Contact Info) Description 03/25/2015 14:46 EDT - 03/25/2015 23:59 EDT Hospital Encounter [address] [address] Jessie Teixeira MD [address] [place] [phone] Discharge Disposition: Home or Self Care Social [...] with the findings. Elaine Hodgson DNP CNM ALGOLOGIST IMG MRI OR DERABLES * HEPATITIS B SURFACE ANTIBODY (03/25/2015 14:52 EDT) Hepatitis B Surface Ab Positive 03/26/2015 11:00 EDT [facility] Comment: Reference Range: Unvaccinated: ??Negative Vaccinated: ??Positive HBs Antibody, Quant >1,000.0 mIU/mL 03/26/2015 11:00 EDT [facility] Comment: Patient is presumed to be immune to infection with HBV. Reference Range: Positive: >=12.0 mIU/mL Indeterminate: >=5.0 to <12.0 mIU/mL Negative: <5.0 mIU/mL BLOOD SPECIMEN / Unknown 03/25/2015 14:52 EDT 03/25/2015 16:57 EDT Jessie Teixeira MD CHEMISTRY & BLOOD GA S ORDERABLES [facility] [address] [place] [address] documented in this encounter Visit Diagnoses Not on filedocumented in this encounter Care Teams Tearer Relationship Specialty Start Date End Date Nataliia Marley MD [address] [place] [address] PCP - General 09/26/10 12/21/19 documented as of this encounter
--- OUTSIDE RECORDS SUMMARY | 2024-04-18 13:07 | XMS_ITS | Encounter Summary ---
Author Organization [facility] Address [address] [place] [address] Care Team Providers Care Local Sales Manager Name Role Phone Nataliia Marley MD Primary Care Provider [phone] Reason for Visit * Reason Comments Nevus changing on back Encounter Details Date Type Department Care Team (Late st Contact Info) Description 04/16/2013 16:30 EST Office Visit [facility] Dermatology 5th Floor [address] [address] Unknown, Provider, Susan Holt MD Neoplasm of unspecified nature of bone, [...] shower. DISCOMFORT: Extra-Strength Tylenol, as directed by granite polisher apprentice, usually relieves any pain you may have. [...] PATIENT INFORMATION: Brittani Bradley : MRN: [id number] SURGEON: MD Romeo Drake MD The indication, risks, benefits and alternatives [...] Primary documented in this encounter Care Teams Local Sales Manager Relationship Specialty Start Date End Date Nataliia Marley MD [address] [place] [address] PCP - General 09/26/10 12/21/19 documented as of this encounter
--- OUTSIDE RECORDS SUMMARY | 2024-04-18 13:07 | XMS_ITS | Encounter Summary ---
Author Organization [facility] Address [address] [place] [address] Care Team Providers Care Paper Sorter And Counter Name Role Phone Nataliia Marley MD Primary Care Provider [phone] Encounter Details Date Type Department Care Team (Late st Contact Info) Description 09/06/2015 Abstract [facility] Sports Medicine Program - [address] [place], [place] [phone] Alin Eller MD [address] [facility] [address] [place] [address] Social History Tobacco Use Types [...] on filedocumented in this encounter Care Teams Paper Sorter And Counter Relationship Specialty Start Date End Date Nataliia Marley MD [address] [place] [phone] PCP - General 09/26/10 12/21/19 documented as of this encounter
--- OUTSIDE RECORDS SUMMARY | 2024-04-18 13:07 | XMS_ITS | Encounter Summary ---
Author Organization [facility] Address [address] [place] [address] Care Team Providers Care Motorcycle Sales Associate Name Role Phone Nataliia Marley MD Primary Care Provider [phone] Encounter Details Date Type Department Care Team (Latest Contact Info) Description 11/07/2016 10:14 EDT - 11/07/2016 23:59 EDT Hospital Encounter [facility] - [address] [address] Kia Buckley, CHANNEL PROGRAM MANAGER [address] [place] [address] [phone] Discharge Disposition: Home or Self Care Social [...] 60 mL 11 04/29/2014 07/19/2019 desog-e.estradiol/e.estr adiol (AZWENDYTTE, 28,) 0.15-0.02 mgx21 /0.01 mg x 5 per tablet Take 1 Tab by mouth daily. Reported on 10/20/2016 07/19/2019 vxltealx-grnqmustx-uyijm ethasone (MAXITROL) ophthalmic ointmentIndications:Chal azion left upper eyelid Apply to left upper eyelid twice daily to 1 week 1 Tube 04/11/2016 07/19/2019 documented as of this encounter Discharge Disposition Disposition Code Departure Means Destination Home or Self Group Home documented in this encounter Plan of Treatment Not on file documented as of this encounter Procedures Procedure Name Priority Date/Time Associated Diagnosis Comments PATHOLOGY - SCANNED 11/10/2016 1 8:51 EDT MISCELLANEOUS TEST, [place] Routine 11/07/2016 10:38 EDT documented in this encounter Results * PATHOLOGY - SCANNED (11/10/2016 18:51 EDT) 11/10/2016 18:5 1 EDT Scan 2 Bridge Attacher LAB INFO SERVICE AN D SUPPORT & PHONE RESULT * MISCELLANEOUS TEST (11/07/2016 10:38 EDT) Test Name [place] DISEASE ANTIBODIES PANEL SERUM 11/07/2016 10:37 EDT [facility] Result See Pathology Scanned Report in [facility]. 11/14/2016 10:50 EDT [facility] Ref Range See Pathology Scanned Report in [facility]. 11/14/2016 10:50 EDT [facility] Ref Lab Test performed by: 11/14/2016 10:50 EDT [facility] Comment: [facility] [place], [place] TOPOGRAPHY UNKNOWN / Unknown 11/07/2016 10:38 EDT 11/07/2016 12:03 EDT Kia Buckley CHANNEL PROGRAM MANAGER CHEMISTRY & BLOOD G ORDERABLES [facility] [address] [place] [address] documented in this encounter Visit Diagnoses Not on filedocumented in this encounter Care Teams Motorcycle Sales Associate Relationship Specialty Start Date End Date Nataliia Marley MD [address] [place] [phone] PCP - General 09/26/10 12/21/19 documented as of this encounter
--- OUTSIDE RECORDS SUMMARY | 2024-04-18 13:07 | XMS_ITS | Encounter Summary ---
Author Organization [facility] Address [address] [place] [address] Care Team Providers Care Ignition Expert Name Role Phone Nataliia Marley MD Primary Care Provider [phone] Reason for Visit * Reason Comments Skin Exam Annual FBSE Skin Lesion Lesion under right e ye, present about 2 weeks Encounter Details Date Type Department Care Team (Late st Contact Info) Description 04/29/2014 15:40 EST Office Visit [facility] Dermatology [address] [id number] Romeo Graham MD [address] [place] [address], [address] [place] [address] Susan Bermudez MD Wart (Primary [...] the entire procedure. Romeo Graham MD * AdrianYocasta montgomery - 04/29/2014 1606 EST Review of Systems [...] 07/19/2019 added in this encounter Care Teams Ignition Expert Relationship Specialty Start Date End Date Nataliia Marley MD [address] [place] [phone] PCP - General 09/26/10 12/21/19 documented as of this encounter
--- OUTSIDE RECORDS SUMMARY | 2024-04-18 13:07 | XMS_ITS | Encounter Summary ---
Author Organization [facility] Address [address] [place] [address] Care Team Providers Care Materials Planner Name Role Phone Nataliia Marley MD Primary Care Provider [phone] Reason for Visit * Reason Onset Date Comments Research 05/16/2016 Encounter Details Date Type Department Care Team ([facility] Contact Info) Description 05/16/2016 Orders Only [facility] Obstetrics & Midwifery - [address] [id number] Florinda Bee MD Research exam (Primary Dx) [...] trial documented in this encounter Care Teams Materials Planner Relationship Specialty Start Date End Date Nataliia Marley MD [address] [place] [phone] PCP - General 09/26/10 12/21/19 documented as of this encounter
--- OUTSIDE RECORDS SUMMARY | 2024-04-18 13:07 | XMS_ITS | Encounter Summary ---
Author Organization [facility] Address [address] [place] [address] Care Team Providers Care Highway Engineering Teacher Name Role Phone Nataliia Marley MD Primary Care Provider [phone] Reason for Visit * Reason Comments Appointment Related Encounter Details Date Type Department Care Team (Late st Contact Info) Description 01/03/2016 Telephone [facility] Sports Medicine Program - [address] [place], [place] [phone] Rose Mary Muñoz, ROQUE Ibarra [place], [place] [phone] Appointment Related Social History Tobacco Use Types [...] - Rose Mary Narvaez RN - 01/03/2016 1418 EDT I received a call from Brittani [...] on filedocumented in this encounter Care Teams Highway Engineering Teacher Relationship Specialty Start Date End Date Nataliia Marley MD [address] [place] [phone] PCP - General 09/26/10 12/21/19 documented as of this encounter
[2024-04-18 21:30] LABS: Abs Immature Grans 0.01 10^3/uL (0.0-0.06); Absolute Basophil Count 0.05 10^3/uL (0.0-0.2); Absolute Eosinophil Count 0.01 10^3/uL (0.0-0.7); Absolute Lymphocyte Count 1.31 10^3/uL (1.2-3.4); Absolute Monocyte Count 0.67 10^3/uL (0.1-0.8); Absolute Neutrophil Count 2.02 10^3/uL (1.2-6.7); Basophils % 1.2 %; Eosinophils % 0.2 %; HCT 32.5 % (36.0-46.0); HGB 10.3 g/dL (11.2-15.7); Immature Grans % 0.2 %; Lymphocytes % 32.2 %; MCHC 31.7 % (32.0-36.0); MCV 76 fL (80-95); MPV 10.1 fL (8.0-11.0); Monocytes % 16.5 %; Neutrophils % 49.7 %; Platelet Count 318 10^3/uL (130-400); RDW 16.8 % (11.7-14.6); RDW-SD 45.2 fL; WBC 4.07 10^3/uL (4.4-10.8)
[2024-04-18 21:32] LABS: ESR 40 mm/hr (0-20)
[2024-04-18 21:43] LABS: ALT 11 U/L (14-59); AST 17 U/L (15-37); Albumin 3.4 g/dL (3.4-5.0); Alkaline Phosphatase 56 U/L (46-116); Anion Gap 8.2 mmol/L (3-11); BUN 5 mg/dL (7-18); Bilirubin, Total 0.32 mg/dL (0.2-1.0); C-Reactive Protein 1.93 mg/dL (<or=0.5); CO2 28.8 mmol/L (21.0-32.0); CREATININE 0.7 mg/dL (0.55-1.02); Calcium 9.2 mg/dL (8.5-10.1); Chloride 103 mmol/L (98-107); Estimated GFR 117.77 (mL/min/1.73m2); Glucose 82 mg/dL (74-106); Potassium 3.9 mmol/L (3.5-5.1); Sodium 140 mmol/L (136-145); Total Protein 7.6 g/dL (6.4-8.2)
== END 2024-04-18 13:03 | disposition home or self-care (01) ==
LOC: NCHCN 13:02
PROVIDERS: PCP Nurse Practitioner Family; Visit Provider Internal Medicine
DX: R50.9 Fever, unspecified (principal)
CPT/HCPCS: 80053; 85652; 85025; 86140

== ENCOUNTER 2024-06-30 20:58 | Outpatient (REF) | payer MEDICAID, SELFPAY ==
[2024-06-30 21:14] LABS: HCT 34.6 % (36.0-46.0); HGB 10.5 g/dL (11.2-15.7); MCH 23.7 pg (27.0-33.0); MCHC 30.3 % (32.0-36.0); MCV 78 fL (80-95); MPV 11.1 fL (8.0-11.0); Platelet Count 354 10^3/uL (130-400); RBC 4.43 10^6/uL (3.93-5.22); RDW 17.3 % (11.7-14.6); RDW-SD 49.6 fL; WBC 6.89 10^3/uL (4.4-10.8)
[2024-06-30 21:26] LABS: Iron 15 ug/dL (50-170); Total Iron Binding Capacity 460 ug/dL (250-450); Transferrin Sat 3 % (15-50)
[2024-06-30 21:39] LABS: Ferritin 4 ng/mL (8-252)
== END 2024-06-30 20:59 | disposition home or self-care (01) ==
LOC: NCHCN 20:58
PROVIDERS: PCP Nurse Practitioner Family; Visit Provider Internal Medicine
DX: D64.9 Anemia, unspecified (principal)
CPT/HCPCS: 85027; 82728; 83540; 83550

== ENCOUNTER 2024-09-25 11:49 | Outpatient (REF) | payer MEDICAID, SELFPAY ==
[2024-09-25 21:28] LABS: HCT 34.5 % (36.0-46.0); HGB 10.6 g/dL (11.2-15.7); MCH 24.6 pg (27.0-33.0); MCHC 30.7 % (32.0-36.0); MCV 80 fL (80-95); Platelet Count 292 10^3/uL (130-400); RBC 4.31 10^6/uL (3.93-5.22); RDW 17.9 % (11.7-14.6); RDW-SD 52.4 fL; WBC 4.36 10^3/uL (4.4-10.8)
[2024-09-25 21:58] LABS: Iron 68 ug/dL (50-170); Total Iron Binding Capacity 358 ug/dL (250-450); Transferrin Sat 19 % (15-50)
[2024-09-25 22:02] LABS: Ferritin 9 ng/mL (8-252)
[2024-09-29 14:15] LABS: IgA 187 mg/dL (85-499); Interpretation (See Note); Tissue Transglutaminase IgA <4.0 CU (<20.0)
== END 2024-09-25 11:50 | disposition home or self-care (01) ==
LOC: NCHCN 11:49
PROVIDERS: Visit Provider Internal Medicine
DX: D50.9 Iron deficiency anemia, unspecified (principal)
CPT/HCPCS: 82784; 83516; 85027; 82728; 83540; 83550

== ENCOUNTER 2025-03-09 15:59 | Outpatient (REF) | payer MEDICAID, SELFPAY ==
[2025-03-09 20:09] LABS: HCT 32.2 % (36.0-46.0); HGB 9.8 g/dL (11.2-15.7); MCH 24.4 pg (27.0-33.0); MCHC 30.4 % (32.0-36.0); MCV 80 fL (80-95); MPV 12.0 fL (8.0-11.0); Platelet Count 338 10^3/uL (130-400); RBC 4.01 10^6/uL (3.93-5.22); RDW 16.7 % (11.7-14.6); RDW-SD 49.3 fL; WBC 6.72 10^3/uL (4.4-10.8)
[2025-03-09 20:38] LABS: Ferritin 18 ng/mL (8-252)
[2025-03-11 11:15] LABS: Lyme Ab w Rflx to Lyme Confirm Positive (Negative)
[2025-03-11 14:57] LABS: Lyme IgG Ab Positive (Negative)
== END 2025-03-09 16:00 | disposition home or self-care (01) ==
LOC: NCHCN 15:59
PROVIDERS: Visit Provider Internal Medicine
DX: M54.6 Pain in thoracic spine (principal)
CPT/HCPCS: 85027; 86617; 82728; 86618